=== PATIENT | female | born 1940 | race Caucasian/White ===

== ENCOUNTER → 2019-11-16 16:08 | Outpatient (BNVA) | payer MEDICARE, BC, OTHER, SELFPAY | PROVIDERS: Family Provider Family Medicine; PCP Family Medicine; Visit Provider Registered Nurse | DX: E11.9 Type 2 diabetes mellitus without complications (principal); I10 Essential (primary) hypertension | CPT/HCPCS: 85025 ==

== ENCOUNTER 2020-06-24 14:14 | Outpatient (CLI) | payer MEDICARE, BC, OTHER, SELFPAY ==
--- NOTE | 2020-06-24 14:34 | XR_ITS ---
WS: [id number] Lumbar spine, 3 views, 06/24/2020 Clinical Data: LOW BACK PAIN Comparison: None. Findings: There is a prominent dextroscoliosis of the lumbar vertebral bodies. There is degenerative change inv olving the lumbar vertebral bodies. There is disc space narrowing at all levels from T12-L1 through L 5-S1. The SI joints and transverse processes are normal. No compression fractures are seen. There is a larg e amount of fecal material throughout the colon. XR/XR lumbar spine 2-3V* [id number] Impression: 1. Severe dextroscoliosis. 2. Osteoarthritis and degenerative disc disease at all lumbar levels.
== END 2020-06-24 14:15 | disposition home or self-care (01) ==
PROVIDERS: PCP Family Medicine; Visit Provider Family Medicine
DX: M41.86 Other forms of scoliosis, lumbar region (principal); M47.816 Spondylosis without myelopathy or radiculopathy, lumbar region; M51.36 Other intervertebral disc degeneration, lumbar region
CPT/HCPCS: 72100

== ENCOUNTER 2021-09-12 12:49 | Outpatient (CLI) | payer MEDICARE, BC, OTHER, SELFPAY ==
--- NOTE | 2021-09-12 13:30 | USCV_ITS ---
Ivelisse Gardner Age: 81 Gender: F : 1940 Exam Date: 09/12/2021 13:04 Ordering Phys: Maggie Chavira MD ([email or web address]) Technologist: LINNEA Exam Location: [facility] [place] Indication: ATHEROSCLEROTIC HEART DISEASE OF [place] CORONARY ARTERIES BP: 110 / 64 HR: 93 Rhythm: Sinus Technical Quality: Suboptimal MEASUREMENTS (Male / Female) Normal Values 2D ECHO LV Diastolic Diameter PLAX 2.5 cm 4.2 - 5.9 / 3.9 - 5.3 cm LV Systolic Diameter PLAX 1.4 cm IVS Diastolic Thickness 0.8 cm 0.6 - 1.0 / 0.6 - 0.9 cm IVS Systolic Thickness 1.3 cm LVPW Diastolic Thickness 0.9 cm 0.6 - 1.0 / 0.6 - 0.9 cm LVPW Systolic Thickness 1.6 cm RV Chamber Size 1.5 cm LVOT Diameter 2.0 cm LV Ejection Fraction 2D Teich 79.3 % LV Ejection Fraction MOD 2C 75.1 % LV Ejection Fraction 2C AL 75.2 % LA Diameter 3.0 cm LA Width 2.6 cm LA Height 3.8 cm RA Width 2.0 cm RA Height 3.6 cm Aorta at Sinotubular Diameter 1.8 cm M-MODE Aortic Annulus Diameter 2.0 cm LA Ao Ratio MM 1.7 DOPPLER AV Peak Velocity 121.0 cm/s LVOT Peak Velocity 114.0 cm/s AV Area Cont Eq vti 2.4 cm squared AV Area Cont Eq pk 3.0 cm squared TR Peak Velocity 173.0 cm/s TR Peak Gradient 12.0 mmHg TV Peak E Velocity 43.0 cm/s Right Atrial Pressure 3.0 mmHg Pulmonary Artery Systolic Pressu 15.0 mmHg PV Peak Velocity 105.0 cm/s RV Acceleration Time 0.1 s RV Ejection Time 0.3 s RV AcT/ET 0.4 FINDINGS Left Ventricle Normal left ventricular size and systolic function with no diagnostic regional wall motion abnormalities. Left ventricular ejection fraction is estimated at 70-75%. Right Ventricle Normal right ventricular size and systolic function. RVSP could not be calculated due to incomplete tricuspid regurgitation velocity profile. Right Atrium Normal right atrial size. Right atrial pressure estimated at 3 mm Hg. Left Atrium Mildly increased left atrial size. Mitral Valve Moderate mitral annular calcification. Mildly thickened mitral valve. No mitral valve stenosis. No mitral valve regurgitation. Aortic Valve Aortic valve not well visualized. No aortic valve stenosis. No aortic valve regurgitation. Tricuspid Valve Structurally normal tricuspid valve. Pulmonic Valve Pulmonic valve not well visualized. Pericardium No pericardial effusion. Aorta Normal-sized aortic root. Normal-sized inferior vena cava with normal respiratory variation. CONCLUSIONS 1. This is a technically difficult study. 2. Normal left ventricular size and systolic function with no diagnostic regional wall motion abnormalities. Left ventricular ejection fraction is estimated at 70-75%. 3. No prior similar studies to compare. Maggie Chavira MD (Electronically Signed) Final Date: 14 September 2021 17:30 S
== END 2021-09-12 12:50 | disposition home or self-care (01) ==
PROVIDERS: PCP Family Medicine; Visit Provider Internal Medicine Cardiovascular Disease
DX: I10 Essential (primary) hypertension (principal); I25.10 Atherosclerotic heart disease of native coronary artery without angina pectoris
CPT/HCPCS: 93306

== ENCOUNTER 2021-09-27 14:16 | Outpatient (CLI) | payer MEDICARE, BC, OTHER, SELFPAY ==
[2021-09-27 15:54] LABS: Anion Gap 18.9 (5-19); Blood Urea Nitrogen 16 mg/dL (8-23); Calcium 9.4 mg/dL (8.5-10.5); Carbon Dioxide 25 mmol/L (22-29); Chloride 101 mmol/L (98-107); Glucose 309 mg/dL (65-115); Osmolality Calculated 305 mOsm/kg (285-295); Potassium 3.9 mmol/L (3.5-5.1); Sodium 141 mmol/L (136-145)
== END 2021-09-27 14:17 | disposition home or self-care (01) ==
LOC: LAB 14:22
PROVIDERS: PCP Family Medicine; Visit Provider Internal Medicine Cardiovascular Disease
DX: I10 Essential (primary) hypertension (principal); I25.10 Atherosclerotic heart disease of native coronary artery without angina pectoris
CPT/HCPCS: 36415; 80048

== ENCOUNTER 2021-10-08 12:16 | Inpatient (IN) | payer MEDICARE, BC, OTHER, SELFPAY ==
[2021-10-08] VITALS (9 sets, daily range): BP systolic 136–170; BP diastolic 71–97; PULSE 77–102; RESP 16–18; TEMP 36.1–37.1; O2SAT 93–97; BMI 30.2
--- NOTE | 2021-10-08 12:39 | XRR_ITS ---
PROCEDURE INFORMATION: Exam: XR Chest Exam date and time: 10/08/2021 12:55 PM Age: 81 years old Clinical indication: Other: Acute stroke; Additional info: CVA TECHNIQUE: Imaging protocol: XR of the chest. Views: 1 view. COMPARISON: No relevant prior studies available. FINDINGS: Lungs: See Bones/joints finding. Pleural spaces: Unremarkable. No pleural effusion. No pneumothorax. Heart/Mediastinum: Unremarkable. No cardiomegaly. Bones/joints: There is a faint 1 cm nodule projecting on the periphery of the left 5th rib. A CT scan of the chest is advised for further evaluation. The remaining lung zones are clear. XR/XR chest 1V portable [id number] IMPRESSION: There is a faint 1 cm nodule projecting on the left upper lobe. CT scan of the chest is advised for further evaluation.
--- NOTE | 2021-10-08 12:39 | CTR_ITS ---
PROCEDURE INFORMATION: Exam: CT Head Without Contrast Exam date and time: 10/08/2021 1:02 PM Age: 81 years old Clinical indication: Weakness, extremity; Bilateral; Patient HX: Several falls; Additional info: Symptoms of acute stroke TECHNIQUE: Imaging protocol: Computed tomography of the head without contrast. Radiation optimization: All CT scans at this facility use at least one of these dose optimization techniques: automated exposure control; mA and/or kV adjustment per patient size (includes targeted exams where dose is matched to clinical indication); or iterative reconstruction. COMPARISON: No relevant prior studies available. RADIATION DOSE METRICS: Total DLP (mGy-cm): 687.41 FINDINGS: Brain: No intracranial hemorrhage, edema or other acute abnormalities are seen in the brain. There is generalized chronic atrophy with prominence of the ventricles and sulci. Cerebral ventricles: The ventricles are prominent due to chronic atrophy. Paranasal sinuses: There is mild mucosal thickening in the sphenoid sinus. Mastoid air cells: Visualized mastoid air cells are well aerated. Bones/joints: Unremarkable. No acute fracture. Soft tissues: Unremarkable. CT/CT head wo con* [id number] IMPRESSION: 1. No acute intracranial abnormality. 2. Generalized chronic atrophy.
--- NOTE | 2021-10-08 12:39 | ECG_ITS ---
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 Measurements Intervals [place] Rate: 93 P: 78 [place]: 222 QRS: 32 QRSD: 84 T: 91 QT: 340 QTc: 424 Interpretive Statements SINUS RHYTHM WITH MARKED SINUS ARRHYTHMIA WITH FIRST DEGREE AV BLOCK ANTERIOR MYOCARDIAL INFARCTION , OF INDETERMINATE AGE [40+ ms Q WAVE AND/OR ST/T ABNORMALITY IN V3/V4] Compared to ECG 05/24/2016 13:02:14 First degree AV block now present Myocardial infarct finding still present Electronically Signed On 10-08-2021 16:52:05 CDT by Jeancarlos Carbajal M.D. [email or web address]
--- NOTE | 2021-10-08 12:51 | W.ED.WEAKNES ---
HPI - Weakness General: Chief complaint: Weakness Stated complaint: stroke like symptoms Time Seen by Provider: 10/08/21 12:35 Source: patient Mode of arrival: ambulatory Limitations: no limitations History of Present Illness: 81-year-old female who states that she went to bed late last night around 1 or 2 AM been on exertion or the exact time states that she woke up this morning she is having some slight weakness in her left leg slurred speech along with left-sided facial droop. She states that her weakness is improved and so has her speech but she does continue to have some facial droop here. Her last known normal would have been around 1 or 2 AM she denies headache no history of stroke in the past. Associated symptoms: Denies chest pain, chills, dysuria, easy bruising, fever(s), nausea or vomiting Review of Systems Const: Denies: fever(s), chills, body aches or change in appetite Eyes: Denies: blurry vision or eye discomfort ENMT: Denies: throat pain or dental pain Card: Denies: chest pain Resp: Denies: dyspnea GI: Denies: abdominal pain, nausea, vomiting or diarrhea : Denies: dysuria Musc: Denies: neck pain or back pain Skin/Breast: Denies: rash Neuro: Reports: Slurred speech present Psych: Denies: depression Mikhail/Lymph: Denies: easy bruising All/Imm: Denies: urticaria PFSH ED PFSH: Medical History (Updated 10/08/21 @ 14:36 by Darrel Jacinto MD) ASHD (arteriosclerotic heart disease) Chest pain Diabetes Dyslipidemia Essential hypertension Hypothyroidism Surgical History S/P angioplasty with stent S/P cataract extraction S/P cholecystectomy S/P hysterectomy Family History Father Diabetes CAD (coronary artery disease) Mother Cancer COLON Other Hyperlipidemia Hypertension Social History Smoking and tobacco status: never smoked Alcohol intake: never Household members: spouse Marital status: Current occupational status: retired Physical Exam Const: COMMON NORMALS: no acute distress, patient oriented x3 and healthy appearing HENMT: COMMON NORMALS: normocephalic and atraumatic HEAD & SCALP: normocephalic and atraumatic Eye: COMMON NORMALS: Equal, round and reactive pupils present and EOMs intact bilaterally PUPIL: Yes Equal, round and reactive pupils present Neck/C-Spine: COMMON NORMALS: full ROM and supple Chest: COMMONS NORMALS: normal inspection of the chest and normal palpation of entire chest wall Resp: COMMON NORMALS: normal respiratory effort, No retractions, No use of accessory muscles and clear to auscultation bilaterally AUSCULTATION: clear to auscultation bilaterally Cardio: COMMON NORMALS: regular rate, regular rhythm and No murmurs present (Cardio) RATE: regular rate RHYTHM: regular rhythm GI: COMMON NORMALS: Normal to inspection, nondistended, normoactive bowel sounds present, Soft to palpation, non-tender and no masses PALPATION: Yes Soft to palpation Extremity: COMMON NORMALS: normal to inspection and full ROM Neuro: COMMON NORMALS: patient oriented x3 and moves all extremities SPEECH: speech normal GAIT: Yes Normal gait present MOTOR EXAM: 5/5 motor strength present throughout OTHER: Left-sided facial droop Psych: COMMON NORMALS: mental status grossly normal, Normal thought process present and cooperative THOUGHT PROCESS: Normal thought process present Skin: COMMON NORMALS: no rashes or lesions noted and no wounds GENERAL SKIN EXAM: no rashes or lesions noted Course Vital Signs: Vital signs: Vital Signs Temperature 98.7 F 10/08/21 12:33 Pulse Rate 81 10/08/21 14:00 Respiratory Rate 18 10/08/21 14:00 Blood Pressure 153/87 10/08/21 14:00 Pulse Oximetry 96 10/08/21 14:00 MDM - Weakness Medical Decision Making Patient presents here with facial droop symptoms of possible stroke symptoms have been improving also last known normal was around 1 AM she was she is out of the timeframe for any tPA. CT head here is normal I spoke to hospitalist and will admit for observation. Lab Data : 10/08/21 12:45 10/08/21 12:45 Radiology Impressions Chest X-Ray 10/08/21 12:39 IMPRESSION: There is a faint 1 cm nodule projecting on the left upper lobe. CT scan of the chest is advised for further evaluation. ADDENDUM: 10/08/21 1400 THIS REPORT CONTAINS FINDINGS THAT MAY BE CRITICAL TO PATIENT CARE. The findings were verbally communicated via telephone conference with DARREL JACINTO at 1:58 PM CDT on 10/08/2021. The findings were acknowledged and understood. Head CT 10/08/21 12:39 IMPRESSION: 1. No acute intracranial abnormality. 2. Generalized chronic atrophy. Laboratory Results WBC 9.6 10^3/uL (4.0-10.0) 10/08/21 12:45 RBC 4.29 10^6/uL (4.1-5.3) 10/08/21 12:45 Hgb 12.7 g/dL (11.5-15.3) 10/08/21 12:45 Hct 38.9 % (37.0-47.0) 10/08/21 12:45 MCV 90.7 fl (81-99) 10/08/21 12:45 MCH 29.6 pg (28.0-34.0) 10/08/21 12:45 MCHC 32.6 g/dL (30.0-36.0) 10/08/21 12:45 RDW 13.8 % (12.1-15.1) 10/08/21 12:45 Plt Count 205 10^3/cmm (130-400) 10/08/21 12:45 MPV 9.4 fL (7.4-10.4) 10/08/21 12:45 Neut % (Auto) 60.9 % 10/08/21 12:45 Lymph % (Auto) 26.9 % 10/08/21 12:45 Edmonson % (Auto) 6.6 % 10/08/21 12:45 Eos % (Auto) 5.0 % 10/08/21 12:45 Baso % (Auto) 0.2 % 10/08/21 12:45 Neut # (Auto) 5.81 10^3/uL (1.8-7.7) 10/08/21 12:45 Lymph # (Auto) 2.6 10^3/uL (0.8-4.8) 10/08/21 12:45 Edmonson # (Auto) 0.6 10^3/uL (0.2-0.9) 10/08/21 12:45 Eos # (Auto) 0.5 10^3/uL (0.0-0.8) 10/08/21 12:45 Baso # (Auto) 0.0 10^3/uL (0.0-0.1) 10/08/21 12:45 Nucleated RBC % (auto) 0 % 10/08/21 12:45 Nucleated RBCs # 0.0 /100WBC 10/08/21 12:45 PT 12.90 SECONDS (12.1-14.9) 10/08/21 12:45 INR 0.94 (0.8-1.2) 10/08/21 12:45 APTT 25.7 SECONDS (23.9-36.7) 10/08/21 12:45 Sodium 139 mmol/L (136-145) 10/08/21 12:45 Potassium 3.8 mmol/L (3.5-5.1) 10/08/21 12:45 Chloride 101 mmol/L (98-107) 10/08/21 12:45 Carbon Dioxide 26 mmol/L (22-29) 10/08/21 12:45 Anion Gap 15.8 (5-19) 10/08/21 12:45 BUN 17 mg/dL (8-23) 10/08/21 12:45 Creatinine 1.1 mg/dL (0.5-0.9) H 10/08/21 12:45 GFR Calculation Not Reportable 10/08/21 12:45 Glucose 189 mg/dL (65-115) H 10/08/21 12:45 POC Glucose 165 mg/dL (70-110) H 10/08/21 13:22 Calculated Osmolality 295 mOsm/kg (285-295) 10/08/21 12:45 Calcium 9.9 mg/dL (8.5-10.5) 10/08/21 12:45 Total Bilirubin 0.3 mg/dL (0.15-1.2) 10/08/21 12:45 AST 20 U/L (0-32) 10/08/21 12:45 ALT 18 U/L (0-33) 10/08/21 12:45 Alkaline Phosphatase 65 IU/L (35-105) 10/08/21 12:45 Total Protein 7.1 g/dL (6.6-8.7) 10/08/21 12:45 Albumin 4.2 g/dL (3.5-5.2) 10/08/21 12:45 Globulin 2.9 g/dL (1.3-4.6) 10/08/21 12:45 EKG Data EKG 1: I personally reviewed and interpreted this EKG as follows: EKG interpretation date: 10/08/21 EKG interpretation time: 12:50 Interpretation: nsr hr [address] or t wave abnormalities qrs 84 qtc 391 Discharge Plan Discharge Patient Disposition: Admitted As Inpatient Admit Provider: Kavita Odom Clinical Impression: Acute CVA (cerebrovascular accident) Condition: Stable 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 Care Code ED Radiator Repairer for Chg Fwd Exam Comprehensive NIH stroke score NIHSS Level Of Consciousness - 1a: 0 Level Of Consciousness Questions - 1b: Both Correct Level Of Consciousness Commands - 1c: Both Correct Best Gaze - 2: Normal Visual Aldrich - 3: No Visual Loss Facial Palsy - 4: Partial Paralysis Motor Arm Right - 5: No Drift Motor Arm Left - 5: No Drift Motor Leg Right - 6: No Drift Motor Leg Left - 6: No Drift Limb Ataxia - 7: Absent Sensory - 8: Normal Best Language - 9: No Aphasia Dysarthia - 10: Normal Extinction And Inattention - 11: 0 Score Total Score: 2
--- NOTE | 2021-10-08 13:03 | PC.NURSE ---
Off unit for CT
[2021-10-08 13:07] LABS: Basophils % 0.2 %; Eosinophils # 0.5 10^3/uL (0.0-0.8); Hematocrit 38.9 % (37.0-47.0); Hemoglobin 12.7 g/dL (11.5-15.3); Lymphocytes # 2.6 10^3/uL (0.8-4.8); Lymphocytes % 26.9 %; Mean Corpuscular HGB Conc 32.6 g/dL (30.0-36.0); Mean Corpuscular Hemoglobin 29.6 pg (28.0-34.0); Mean Corpuscular Volume 90.7 fl (81-99); Mean Platelet Volume 9.4 fL (7.4-10.4); Monocytes # 0.6 10^3/uL (0.2-0.9); Monocytes % 6.6 %; Neutrophils # 5.81 10^3/uL (1.8-7.7); Neutrophils % 60.9 %; Nucleated Red Blood Cells % 0 %; Platelet Count 205 10^3/cmm (130-400); Red Blood Count 4.29 10^6/uL (4.1-5.3); Red Cell Distribution Width 13.8 % (12.1-15.1); White Blood Count 9.6 10^3/uL (4.0-10.0)
[2021-10-08 13:20] LABS: INR 0.94 (0.8-1.2); Partial Thromboplastin Time 25.7 SECONDS (23.9-36.7)
[2021-10-08 13:25] LABS: Alanine Aminotransferase 18 U/L (0-33); Albumin Level 4.2 g/dL (3.5-5.2); Alkaline Phosphatase 65 IU/L (35-105); Anion Gap 15.8 (5-19); Aspartate Amino Transferase 20 U/L (0-32); Blood Urea Nitrogen 17 mg/dL (8-23); Calcium 9.9 mg/dL (8.5-10.5); Carbon Dioxide 26 mmol/L (22-29); Chloride 101 mmol/L (98-107); Globulin 2.9 g/dL (1.3-4.6); Glucose 189 mg/dL (65-115); Osmolality Calculated 295 mOsm/kg (285-295); Potassium 3.8 mmol/L (3.5-5.1); Sodium 139 mmol/L (136-145); Total Bilirubin 0.3 mg/dL (0.15-1.2); Total Protein 7.1 g/dL (6.6-8.7)
[2021-10-08 13:25] LABS: Glucose Point of Care 165 mg/dL (70-110)
[2021-10-08 13:57] LABS: Amphetamines Screen Urine Negative (Negative); Barbiturates Screen Urine Negative (Negative); Benzodiazepines Screen Urine Negative (Negative); Cocaine Screen Urine Negative (Negative); Opiate Screen Urine Negative (Negative); PCP Screen Urine Negative (Negative); THC Screen Urine Negative (Negative)
[2021-10-08 13:58] LABS: Add Urine Culture? No; Add Urine Microscopic? YES; Bacteria Urine TRACE /hpf; Bilirubin Urine Neg (Negative); Blood Urine Neg (Negative); Glucose Urine UA Norm (Normal); Ketones Urine Negative (Negative); Leukocyte Esterase Urine Negative (Negative); Mucus Urine TRACE /hpf; Nitrate Urine Negative (Negative); Protein Urine Trace (Negative); Specific Gravity, Urine 1.015 (1.005-1.030); Squamous Epithelial Cell Urine RARE /hpf (0-5); Urine Appearance Clear (CLEAR); Urine Color Yellow (Yellow); Urobilinogen Urine Norm (Negative); WBC Urine 0-4 /hpf (0-5); pH Urine 6 (5-7)
--- NOTE | 2021-10-08 13:58 | CTR_ITS ---
PROCEDURE INFORMATION: Exam: CT Chest With Contrast; Diagnostic Exam date and time: 10/08/2021 3:17 PM Age: 81 years old Clinical indication: Other: Mass; Prior surgery; Surgery type: Gb, hysto, stents TECHNIQUE: Imaging protocol: Diagnostic computed tomography of the chest with contrast. Radiation optimization: All CT scans at this facility use at least one of these dose optimization techniques: automated exposure control; mA and/or kV adjustment per patient size (includes targeted exams where dose is matched to clinical indication); or iterative reconstruction. Contrast material: VISI 320; Contrast volume: 95 ml; Contrast route: INTRAVENOUS (IV); COMPARISON: CR (CHEST, ) 10/08/2021 12:55 PM RADIATION DOSE METRICS: Total DLP (mGy-cm): 517.37 FINDINGS: Lungs: Mild interstitial prominence and trace lingular airspace disease. Pleural spaces: No pleural effusion. Heart: Coronary artery calcification. Lymph nodes: Subcentimeter lymph nodes. Vasculature: Normal caliber of the thoracic aorta. Upper abdomen: Fatty infiltration of the liver. Status post cholecystectomy. Gastric wall thickening. Bones/joints: Scoliosis and degenerative change. Soft tissues: Unremarkable. CT/CT chest w con* [id number] IMPRESSION: 1. No significant airspace or pleural disease. 2. Gastric wall thickening. 3. Additional findings as described above.
[2021-10-08] MEDS: aspirin 81 mg Chew Tablet 324 MG PO (14:19)
--- NOTE | 2021-10-08 14:19 | USCV_ITS ---
Ivelisse Gardner Age: 81 Gender: F : 1940 Exam Date: 10/08/2021 14:40 Ordering Phys: Kavita Odom MD Technologist: Alin Farley Exam Location: [facility] [place] Indication: cva BP: / HR: Rhythm: Sinus Technical Quality: MEASUREMENTS (Male / Female) Normal Values FINDINGS Left Ventricle Right Ventricle Right Atrium Left Atrium Mitral Valve Aortic Valve Tricuspid Valve Pulmonic Valve Pericardium Aorta CONCLUSIONS This is a bubble study only. With injection of agitated saline, there is no evidence of communication between the right and left circulation. No evidence of patent foramen ovale, ASD or VSD. Dr. Jeancarlos Carbajal MD (Electronically Signed) Final Date: 08 Oct 2021 16:43 S
--- NOTE | 2021-10-08 14:19 | MRR_ITS ---
PROCEDURE INFORMATION: Exam: MR Head Without Contrast Exam date and time: 10/08/2021 6:27 PM Age: 81 years old Clinical indication: Weakness, extremity; Patient HX: Patient woke up with left side weakness; Additional info: Rule out stroke, without contrast TECHNIQUE: Imaging protocol: MR of the head without contrast. COMPARISON: CT head wo con* [id number] 10/08/2021 1:02 PM FINDINGS: Brain: There is restricted diffusion at the posterolateral aspect of the right lentiform nucleus, adjacent posterior limb of the internal capsule, and caudate body, consistent with acute ischemic infarction. Small region of infarct measuring 1.5 x 1.0 by 1.8 cm in the AP/transverse/craniocaudad dimensions. No significant adjacent mass effect. No midline shift. There are multiple foci of high T2 and FLAIR signal in the periventricular and subcortical white matter of the bilateral cerebral hemispheres, which at this age likely represent microvascular ischemic changes. There is diffuse cerebral atrophy present, consistent with this patient's age. Cerebral ventricles: Normal. No ventriculomegaly. Pituitary gland and sella: Normal variant partially empty sella. Bones/joints: Unremarkable. Paranasal sinuses: Normal as visualized. No acute sinusitis. Mastoid air cells: Normal as visualized. No mastoid effusion. Orbital cavities: Unremarkable. Soft tissues: Unremarkable. MR/MR head wo con* [id number] IMPRESSION: There is a small region of acute ischemic infarction involving the right lentiform nucleus, caudate, and posterior limb of the internal capsule. No significant mass effect.
--- NOTE | 2021-10-08 14:19 | USR_ITS ---
Arterial ultrasound of the extracerebral carotid and vertebral arteries Clinical indication: Weakness, facial; Additional info: Possible stroke Technique: Real-time ultrasound with segal scale, duplex Doppler, and color flow imaging was performed to evaluate the extracerebral carotid and vertebral arteries. No prior vascular imaging studies are available for correlation at the time of dictation. Findings: Moderate plaque formation is identified within the visualized carotid arteries . There is normal antegrade flow within the vertebral arteries bilaterally. The peak systolic velocity measurements within the right and left internal carotid arteries are 51 and 49 cm per second respectively. The right systolic velocity ratio is 0.74, while the left systolic velocity ratio is 0.78. These values are well within normal limits. When correlating with NASCET index criteria, no hemodynamically significant stenosis is present. US/CV carotid duplex BI* [id number] Impression: 1. Moderate plaque formation within the carotid arteries, without hemodynamically significant ICA stensosis. 2. Normal antegradew flow within the vertebral arteries.
--- NOTE | 2021-10-08 14:27 | P.HP_ITS ---
Providers/Chief Complaint Primary Care Provider: Natalie Manzano MD Chief Complaint: stroke like symptoms History of Present Illness Ivelisse Gardner is a 81 year old female with past medical history of CAD status post stents 2010, diabetes insulin-dependent, dyslipidemia, hypertension, hypothyroidism who presented to the hospital today with complaint of left lower extremity weakness with slurred speech along with left-sided facial droop. Patient's is at bedside who provided most of the history. Patient was asked she was able to report some stuff but rest she does not seem to remember. She answered please asked my to numerous questions. Patient is experiencing some word finding difficulty. She does have headaches from time to time but has not experienced any lately. Last known normal is probably 1 AM. S he denies any headache denies any strokes in the past. Denies chest pain, fever, chills, bruising, nausea, vomiting, diarrhea. Patient follows with Dr. Chavira as per tape librarian. Review of systems negative septa noted in HPI. Patient is out of the window for tPA ED course: Blood pressure 145/80, respiratory 16, pulse 102, temperature 98.7, pulse ox 93%. EKG did not show any ischemic changes. Head CT was done which did not show an acute stroke. Most recent echo September 14, 2021 shows normal left ventricular size and systolic function with no wall motion abnormalities. EF 70 to 75%. Medications/Allergies Home Medications Medication Instructions Recorded Confirmed Last Taken Type aspirin 81 mg tablet,delayed 81 mg PO DAILY 06/29/19 10/08/21 10/08/21 History release (Adult Low Dose Aspirin) multivitamin 1 tab PO BID tab 06/29/19 10/08/21 10/08/21 History simvastatin 40 mg tablet 40 mg PO DAILY 06/29/19 10/08/21 10/07/21 History blood sugar diagnostic (Contour See Rx Instructions .ROUTE 05/12/20 10/08/21 Unknown Rx Next Test Strips) .COMPLEX #100 strip gabapentin 100 mg capsule 100 mg PO BID cap 01/05/21 10/08/21 10/08/21 History nitroglycerin 0.4 mg sublingual 0.4 mg SUBLINGUAL Q5M PRN #25 tab 06/26/21 10/08/21 Unknown Rx tablet (Nitrostat) vitamins A,C,P-vnax-pbnlsb 7,160 1 tab PO BID tab 06/26/21 10/08/21 10/08/21 History unit-113 mg-100 unit tablet (PreserVision AREDS) pen needle, diabetic 32 gauge x #100 ea 08/07/21 10/08/21 Unknown Rx (TechLITE Pen Needle) metoprolol tartrate 25 mg tablet See Rx Instructions .ROUTE 08/11/21 10/08/21 10/08/21 Rx .COMPLEX #180 tab budesonide 32 mcg/actuation nasal 1 spray INTRANASAL DAILY #8.43 ml 08/28/21 10/08/21 Unknown Rx spray (Rhinocort Allergy) insulin detemir U-100 100 unit/mL See Rx Instructions .ROUTE 09/08/21 10/08/21 10/07/21 Rx (3 mL) subcutaneous pen (Levemir .COMPLEX #90 ml FlexTouch U-100 Insulin) lisinopril 10 mg tablet 20 mg PO BID tab 09/20/21 10/08/21 10/08/21 History isosorbide mononitrate 60 mg 60 mg PO BID #180 tab 09/25/21 10/08/21 10/08/21 Rx tablet,extended release 24 hr allopurinol 100 mg tablet 200 mg PO DAILY 10/08/21 10/08/21 10/08/21 History duloxetine 60 mg capsule,delayed 60 mg PO DAILY 10/08/21 10/08/21 10/08/21 History release levothyroxine 75 mcg tablet 75 mcg PO DAILY 10/08/21 10/08/21 10/08/21 History metformin 500 mg tablet,extended 500 mg PO BID 10/08/21 10/08/21 10/08/21 History release 24 hr omeprazole 40 mg capsule,delayed 40 mg PO DAILY 10/08/21 10/08/21 10/08/21 History release sitagliptin 100 mg tablet (Januvia) 100 mg PO DAILY 10/08/21 10/08/21 10/08/21 History triamterene 37.5 1 tab PO DAILY 10/08/21 10/08/21 10/08/21 History mg-hydrochlorothiazide 25 mg tablet Allergies Allergy/AdvReac Type Severity Reaction Status Date / Time azithromycin [From Zithromax] Allergy Mild rash Verified 08/28/21 11:04 Quinidine-Quinine Analogues Allergy Mild rash Verified 08/28/21 11:04 ([facility]: Medical History (Updated 10/08/21 @ 14:36 by aDvid Galarza MD) ASHD (arteriosclerotic heart disease) Chest pain Diabetes Dyslipidemia Essential hypertension Hypothyroidism Surgical History S/P angioplasty with stent S/P cataract extraction S/P cholecystectomy S/P hysterectomy Family History Father Diabetes CAD (coronary artery disease) Mother Cancer COLON Other Hyperlipidemia Hypertension Social History Smoking and tobacco status: never smoked Alcohol intake: never Household members: spouse Marital status: Current occupational status: retired Vitals/I&O/Wt Last Vital Signs Temp 98.7 F 10/08/21 12:33 Pulse 81 10/08/21 14:00 Resp 18 10/08/21 14:00 BP 153/87 10/08/21 14:00 Pulse Ox 96 10/08/21 14:00 Weight last 48 hrs Weight 68.039 kg Physical Exam Narrative: General: Alert oriented x3, patient seen sitting up in bed. HEENT: Normocephalic, atraumatic, EOMI, breathing _normally, left facial droop noted. Slight slurred speech still present. Cardio: Regular rate rhythm, normal S1-S2, no murmurs Respiratory: Good bilateral air entry, no wheezes no rhonchi appreciated GI: Abdomen soft, nontender, nondistended, bowel sounds + Behavior: Appropriate and cooperative Extremities: no edema, no cyanosis Neuro: Cranial nerves II to XII intact, left facial droop present, left upper extremity strength 4 out of 5, right upper extremity strength 5 out of 5, left lower extremity 3 out of 5, right lower extremity 5 out of 5. [id number] normal no dysdiadochokinesia, right superior quadrantanopsia present on peripheral vision testing. She is able to tell me president is Marco, year 2021, her date of or name. However she is unable to clearly state that she is in the hospital. I spoke to her for several minutes and noticed that she was having word finding difficulty. She could tell me what you do here but could not say that this was a hospital. Able to repeat 3 words that to her. Cognitive reasoning intact. Data : 10/08/21 12:45 10/08/21 12:45 A&P Assessment and plan (1) Acute CVA (cerebrovascular accident): Status: Acute (2) ASHD (arteriosclerotic heart disease): Status: Acute (3) Diabetes: Status: Acute Qualifiers: Diabetes mellitus type: type 2 Diabetes mellitus lobsterman insulin use: with lobsterman use Diabetes mellitus complication status: with hyperglycemia Qualified Code(s): E11.65 - Type 2 diabetes mellitus with hyperglycemia; Z79.4 - ocean transportation intermediary (current) use of insulin (4) Dyslipidemia: Status: Acute (5) S/P angioplasty with stent: Status: Acute (6) Essential hypertension: Status: Acute Plan #Left-sided weakness with left facial droop and slurred speech 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 Continue on insulin sliding scale. Hold home antihyperglycemic's ? Continue levothyroxine ? Patient received 325 aspirin on arrival. ? Continue aspirin 81 and Effient in a.m. Patient is allergic to Plavix. ? Continue on Levemir 50 units at bedtime. Her home dose is 100 units bedtime. ? Keep n.p.o. until swallow evaluation. ? Allow for permissive hypertension for first 24 hours Hold home antihypertensives. Last known normal 1 AM. Tonight we may be able to start some of her antihypertensives. We will let night hospitalist know ? Check MRI brain ? Check carotid Dopplers ? Check echo with bubble to rule out PFO she did have a recent echo. We will do a limited one just to look for PFO. ? Monitor on telemetry ? PT OT. Patient's was present at bedside provided most of the history. He takes care of her at home and manages her medications as well. They brought a list of medications along with the physical bottles. At first patient said that she did not want to be resuscitated and wanted to be a DNR/DNI but then after discussion with her they both agreed that she should remain a full code. In case patient cannot make her own medical decisions her would be the person to contact. Both are in agreement. Full code Attestations Medical Necessity Statement*: Admit for stroke work-up. 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 Care Code Acute Air Brake Rigger for g Fwd Diagnoses Acute CVA (cerebrovascular accident) I63.9 ASHD (arteriosclerotic heart disease) I25.10 Diabetes E11.65; Z79.4 Diabetes mellitus type: type 2 Diabetes mellitus lobsterman insulin use: with fdc use Diabetes mellitus complication status: with hyperglycemia Dyslipidemia E78.5 S/P angioplasty with stent Z95.820 Essential hypertension I10
[2021-10-08] MEDS: iodixanol 320 mg/mL 100mL Btl IV (15:17)
[2021-10-08] MEDS: enoxaparin 40 mg/0.4 mL Syringe SUBCUT (15:29)
--- NOTE | 2021-10-08 15:57 | PC.RESP ---
PT NOT IN ROOM FOR ASSESS AND TREAT
[2021-10-08 16:14] LABS: Chol HDL Ratio 2.74 mg/dL (0.0-4.40); Cholesterol 137 mg/dL (0-200); Estmated Average Glucose 180; HDL Cholesterol 50 mg/dL (60-100); Hemoglobin A1C 7.9 % (4.0-6.0); LDL Cholesterol Calculated 60 mg/dL (50-129); Thyroid Stimulating Hormone 1.15 uIU/mL (0.27-4.20); Triglycerides 134 mg/dL (0-150)
[2021-10-08] MEDS: gabapentin 100 mg Capsule PO (17:23)
[2021-10-08] MEDS: metoprolol tartrate 25 mg Tablet PO (17:24)
--- NOTE | 2021-10-08 17:52 | PC.NURSE ---
THIS NURSE CONTACTED [facility] MACHINE FEEDERPSYCHIATRIC NP FOR URGENT MRI ORDER. THIS ORDER WAS PLACED AROUND 1420. PATIENT WAS IN ER AT THAT TIME.
--- NOTE | 2021-10-08 17:54 | PC.NURSE ---
Patient AAOx4 with spouse at bedside and helpful answering questions. Patient has left side weakness with left side facial droop. VSS, no wounds on skin, no c/o pain, discharge rn calling for MRI food preservation scientist to come. No new events, encourage frequent turns, will report to oncoming nurse at shift change.
[2021-10-08] MEDS: insulin lispro 100 unit/1 mL SUBCUT (21:22)
[2021-10-08] MEDS: atorvastatin 40 mg Tablet 80 MG PO (21:22)
[2021-10-09] VITALS (8 sets, daily range): BP systolic 138–160; BP diastolic 67–76; PULSE 66–82; RESP 16–20; TEMP 35.6–37.3; O2SAT 92–95
--- NOTE | 2021-10-09 07:53 | PM.PN ---
Subjective Subjective: seen this am. no acute events overnight. working with PT Vitals/I&O/Wt Last Vital Signs Temp 96.1 F L 10/09/21 07:15 Pulse 67 10/09/21 07:15 Resp 20 H 10/09/21 04:00 BP 160/76 10/09/21 07:15 Pulse Ox 94 10/09/21 07:15 10/08/21 10/09/21 10/09/21 22:59 06:59 14:59 Intake Total 100 / 100 Output Total 500 / 500 Balance -400 / -400 Weight last 48 hrs Weight 68.039 kg Physical Exam Narrative: General: Alert oriented x3, patient seen sitting up at edge of bed. HEENT: Normocephalic, atraumatic, EOMI, breathing _normally, left facial droop & Slight slurred speech still present. Cardio: Regular rate rhythm, normal S1-S2, no murmurs Respiratory: Good bilateral air entry, no wheezes no rhonchi appreciated GI: Abdomen soft, nontender, nondistended, bowel sounds + Behavior: Appropriate and cooperative Extremities: no edema, no cyanosis Neuro: Cranial nerves II to XII intact, left facial droop present, left upper extremity strength 4 out of 5, right upper extremity strength 5 out of 5, left lower extremity 3 out of 5, right lower extremity 5 out of 5.? [id number] normal no dysdiadochokinesia, right superior quadrantanopsia present on peripheral vision testing.? word finding difficulty still present Data : 10/08/21 12:45 10/08/21 12:45 A&P Assessment and plan (1) Acute CVA (cerebrovascular accident): Status: Acute (2) ASHD (arteriosclerotic heart disease): Status: Acute (3) Dyslipidemia: Status: Acute (4) Diabetes: Status: Acute Qualifiers: Diabetes mellitus type: type 2 Diabetes mellitus custodial insulin use: with custodial use Diabetes mellitus complication status: with hyperglycemia Qualified Code(s): E11.65 - Type 2 diabetes mellitus with hyperglycemia; Z79.4 - local intermodal truck driver (current) use of insulin (5) S/P angioplasty with stent: Status: Acute (6) Essential hypertension: Status: Acute Plan #Left-sided weakness with left facial droop and slurred speech 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 Continue on insulin sliding scale.? Hold home antihyperglycemic's ? Continue levothyroxine ? Patient received 325 aspirin on arrival. ? Continue aspirin 81 and Effient Patient is allergic to Plavix. ? Continue on Levemir 75 units at bedtime.? Her home dose is 100 units bedtime. ? Swallow evaluation recommends dysphagia 2 diet ? MRI brain complete. ? Carotid Dopplers complete. ? PFO ruled out ? Monitor on telemetry ? PT OT. - Interested in SNF. Full code Attestations Medical Necessity Statement*: > 48 hr stay. Needs PT s/p stroke 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 Care Code Acute Manager Diesel for [facility] Fwd Diagnoses Acute CVA (cerebrovascular accident) I63.9 ASHD (arteriosclerotic heart disease) I25.10 Dyslipidemia E78.5 Diabetes E11.65; Z79.4 Diabetes mellitus type: type 2 Diabetes mellitus termite treater insulin use: with custodial use Diabetes mellitus complication status: with hyperglycemia S/P angioplasty with stent Z95.820 Essential hypertension I10
[2021-10-09 08:04] LABS: Glucose Point of Care 103 mg/dL (70-110)
[2021-10-09 08:04] LABS: Glucose Point of Care 202 mg/dL (70-110)
[2021-10-09 08:04] LABS: Glucose Point of Care 144 mg/dL (70-110)
[2021-10-09] MEDS: allopurinol 100 mg Tablet 200 MG PO (09:57)
[2021-10-09] MEDS: gabapentin 100 mg Capsule PO ×2 (09:57→18:05)
[2021-10-09] MEDS: aspirin 81 mg EC Tablet PO (09:57)
[2021-10-09] MEDS: prasugrel 10 MG Tablet PO (09:57)
[2021-10-09] MEDS: levothyroxine 75 mcg Tablet PO (09:57)
[2021-10-09] MEDS: duloxetine 60 mg Capsule PO (09:58)
[2021-10-09] MEDS: metoprolol tartrate 25 mg Tablet PO ×2 (10:01→18:05)
[2021-10-09 11:29] LABS: Glucose Point of Care 111 mg/dL (70-110)
[2021-10-09 11:37] LABS: Glucose Point of Care 237 mg/dL (70-110)
[2021-10-09] MEDS: insulin lispro 100 unit/1 mL SUBCUT ×3 (12:25→21:13)
[2021-10-09] MEDS: enoxaparin 40 mg/0.4 mL Syringe SUBCUT (16:45)
[2021-10-09 17:17] LABS: Glucose Point of Care 170 mg/dL (70-110)
[2021-10-09] MEDS: atorvastatin 40 mg Tablet 80 MG PO (21:10)
[2021-10-10] VITALS (8 sets, daily range): BP systolic 138–178; BP diastolic 72–79; PULSE 63–81; RESP 16–18; TEMP 36.3–36.8; O2SAT 93–96
[2021-10-10 05:40] LABS: Basophils % 0.2 %; Eosinophils # 0.4 10^3/uL (0.0-0.8); Eosinophils % 4.5 %; Hematocrit 41.3 % (37.0-47.0); Lymphocytes # 4.5 10^3/uL (0.8-4.8); Lymphocytes % 49.5 %; Mean Corpuscular HGB Conc 31.5 g/dL (30.0-36.0); Mean Corpuscular Volume 92.2 fl (81-99); Mean Platelet Volume 9.3 fL (7.4-10.4); Monocytes # 0.7 10^3/uL (0.2-0.9); Monocytes % 7.2 %; Neutrophils # 3.51 10^3/uL (1.8-7.7); Neutrophils % 38.4 %; Nucleated Red Blood Cells % 0 %; Platelet Count 223 10^3/cmm (130-400); Red Blood Count 4.48 10^6/uL (4.1-5.3); Red Cell Distribution Width 13.8 % (12.1-15.1); White Blood Count 9.2 10^3/uL (4.0-10.0)
[2021-10-10 06:01] LABS: Anion Gap 15.4 (5-19); Blood Urea Nitrogen 15 mg/dL (8-23); Calcium 8.8 mg/dL (8.5-10.5); Carbon Dioxide 26 mmol/L (22-29); Chloride 102 mmol/L (98-107); Glucose 75 mg/dL (65-115); Osmolality Calculated 290 mOsm/kg (285-295); Potassium 3.4 mmol/L (3.5-5.1); Sodium 140 mmol/L (136-145)
[2021-10-10 07:26] LABS: Glucose Point of Care 279 mg/dL (70-110)
[2021-10-10 07:26] LABS: Glucose Point of Care 94 mg/dL (70-110)
[2021-10-10] MEDS: metoprolol tartrate 25 mg Tablet PO ×2 (08:18→17:50)
[2021-10-10] MEDS: allopurinol 100 mg Tablet 200 MG PO (08:18)
[2021-10-10] MEDS: prasugrel 10 MG Tablet PO (08:18)
[2021-10-10] MEDS: levothyroxine 75 mcg Tablet PO (08:18)
[2021-10-10] MEDS: aspirin 81 mg EC Tablet PO (08:18)
[2021-10-10] MEDS: duloxetine 60 mg Capsule PO (08:18)
[2021-10-10] MEDS: gabapentin 100 mg Capsule PO ×2 (08:18→17:50)
--- NOTE | 2021-10-10 10:44 | P.PN_ITS ---
Subjective Subjective: Seen this morning. Seen this morning. Patient continues to work with physical therapy. She states she feels better however she still has weakness on the left side. present at bedside. Vitals/I&O/Wt Last Vital Signs Temp 98.2 F 10/10/21 08:00 Pulse 70 10/10/21 08:00 Resp 18 10/10/21 08:00 BP 156/79 10/10/21 08:00 Pulse Ox 96 10/10/21 08:00 10/09/21 10/10/21 10/10/21 22:59 06:59 14:59 Intake Total 160 / 400 50 / 450 240 / 240 Output Total 350 / 1000 Balance -190 / -600 50 / -550 240 / 240 Weight last 48 hrs Weight 68.039 kg Physical Exam Narrative: General: Alert oriented x3, patient seen sitting up in bed. HEENT: Normocephalic, atraumatic, EOMI, breathing _normally, Cardio: Regular rate rhythm, normal S1-S2, no murmurs Respiratory: Good bilateral air entry, no wheezes no rhonchi appreciated GI: Abdomen soft, nontender, nondistended, bowel sounds + Behavior: Appropriate and cooperative Extremities: no edema, no cyanosis Neuro: Cranial nerves II to XII intact, left facial droop slighty improved, left upper extremity strength 4 out of 5, right upper extremity strength 5 out of 5, left lower extremity 3 out of 5, right lower extremity 5 out of 5.? right superior quadrantanopsia present on peripheral vision testing.? word finding difficulty no longer present Data : 10/10/21 04:48 10/10/21 04:48 Other data: MRI brain 10/08/2021 There is a small region of acute ischemic infarction involving the right lentiform nucleus, caudate, and posterior limb of the internal capsule. No significant mass effect. Carotid doppler 1. Moderate plaque formation within the carotid arteries, without hemodynamically significant ICA stensosis. 2. Normal antegradew flow within the vertebral arteries. ECHO with bubble no PFO A&P Assessment and plan (1) Acute CVA (cerebrovascular accident): Status: Acute (2) ASHD (arteriosclerotic heart disease): Status: Acute (3) Dyslipidemia: Status: Acute (4) Diabetes: Status: Acute Qualifiers: Diabetes mellitus type: type 2 Diabetes mellitus retirement insulin use: with retirement use Diabetes mellitus complication status: with hyperglycemia Qualified Code(s): E11.65 - Type 2 diabetes mellitus with hyperglycemia; Z79.4 - long-term (current) use of insulin (5) Essential hypertension: Status: Acute (6) S/P angioplasty with stent: Status: Acute Plan #Left-sided weakness with left facial droop and slurred speech 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 Continue on insulin sliding scale.? Hold home antihyperglycemic's ? Continue levothyroxine ? Patient received 325 aspirin on arrival. ? Continue aspirin 81 and Effient Patient is allergic to Plavix. ? Continue on Levemir 75 units at bedtime.? Her home dose is 100 units bedtime. ? Swallow evaluation recommends dysphagia 2 diet ? MRI brain complete. ? Carotid Dopplers complete. ? PFO ruled out ? Monitor on telemetry ? Pt needs inpatient physical therapy. She is weaker on the left side. She cannot take care of herself at home. It would be unsafe for her to go home as her will be unable to care for her. 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
[2021-10-10 14:24] LABS: Glucose Point of Care 199 mg/dL (70-110)
[2021-10-10] MEDS: enoxaparin 40 mg/0.4 mL Syringe SUBCUT (14:29)
[2021-10-10 17:18] LABS: Glucose Point of Care 151 mg/dL (70-110)
[2021-10-10] MEDS: insulin lispro 100 unit/1 mL SUBCUT ×2 (17:51→21:42)
[2021-10-10 21:08] LABS: Glucose Point of Care 190 mg/dL (70-110)
[2021-10-10] MEDS: atorvastatin 40 mg Tablet 80 MG PO (21:11)
[2021-10-11] VITALS (9 sets, daily range): BP systolic 122–179; BP diastolic 68–77; PULSE 68–89; RESP 13–18; TEMP 36.4–36.9; O2SAT 91–96
[2021-10-11 06:35] LABS: Glucose Point of Care 72 mg/dL (70-110)
[2021-10-11] MEDS: gabapentin 100 mg Capsule PO ×2 (09:43→17:06)
[2021-10-11] MEDS: levothyroxine 75 mcg Tablet PO (09:44)
[2021-10-11] MEDS: duloxetine 60 mg Capsule PO (09:44)
[2021-10-11] MEDS: prasugrel 10 MG Tablet PO (09:44)
[2021-10-11] MEDS: aspirin 81 mg EC Tablet PO (09:44)
[2021-10-11] MEDS: metoprolol tartrate 25 mg Tablet PO ×2 (09:44→17:06)
[2021-10-11] MEDS: allopurinol 100 mg Tablet 200 MG PO (09:46)
[2021-10-11 11:34] LABS: Glucose Point of Care 185 mg/dL (70-110)
[2021-10-11] MEDS: insulin lispro 100 unit/1 mL SUBCUT ×3 (12:11→20:53)
[2021-10-11] MEDS: enoxaparin 40 mg/0.4 mL Syringe SUBCUT (15:19)
--- NOTE | 2021-10-11 16:00 | P.PN_ITS ---
Subjective Subjective: Seen this morning. ? no acute events overnight. Vitals/I&O/Wt Last Vital Signs Temp 98.5 F 10/11/21 12:00 Pulse 85 10/11/21 12:00 Resp 18 10/11/21 12:00 BP 126/68 10/11/21 12:00 Pulse Ox 95 10/11/21 15:27 10/11/21 10/11/21 10/11/21 06:59 14:59 22:59 Intake Total 240 / 240 Output Total 320 / 660 Balance -320 / -420 240 / 240 Physical Exam Narrative: General: Alert oriented x3, patient seen sitting up in bed. HEENT: Normocephalic, atraumatic, EOMI, breathing _normally, Cardio: Regular rate rhythm, normal S1-S2, no murmurs Respiratory: Good bilateral air entry, no wheezes no rhonchi appreciated GI: Abdomen soft, nontender, nondistended, bowel sounds + Behavior: Appropriate and cooperative Extremities: no edema, no cyanosis Neuro: Cranial nerves II to XII intact, left facial droop slighty improved, left upper extremity strength 4 out of 5, right upper extremity strength 5 out of 5, left lower extremity 4 out of 5, right lower extremity 5 out of 5.? right superior quadrantanopsia present on peripheral vision testing.? word finding difficulty no longer present Data : 10/10/21 04:48 10/10/21 04:48 A&P Assessment and plan (1) Acute CVA (cerebrovascular accident): Status: Acute (2) ASHD (arteriosclerotic heart disease): Status: Acute (3) Dyslipidemia: Status: Acute (4) Diabetes: Status: Acute Qualifiers: Diabetes mellitus type: type 2 Diabetes mellitus jail insulin use: with textiles sales representative use Diabetes mellitus complication status: with hyperglycemia Qualified Code(s): E11.65 - Type 2 diabetes mellitus with hyperglycemia; Z79.4 - jail (current) use of insulin (5) S/P angioplasty with stent: Status: Acute (6) Essential hypertension: Status: Acute Plan #Left-sided weakness with left facial droop and slurred speech 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 Continue on insulin sliding scale.? Hold home antihyperglycemic's ? Continue levothyroxine ? Patient received 325 aspirin on arrival. ? Continue aspirin 81 and Effient Patient is allergic to Plavix. ? Continue on Levemir 75 units at bedtime.? Her home dose is 100 units bedtime. ? Swallow evaluation recommends dysphagia 2 diet ? MRI brain complete. ? Carotid Dopplers complete. ? PFO ruled out ? Monitor on telemetry ? Pt needs inpatient physical therapy.? She is weaker on the left side.? She cannot take care of herself at home.? It would be unsafe for her to go home as her will be unable to care for her. Plan for discharge tomorrow most [place]. Full code Attestations Medical Necessity Statement*: DC to shelter in AM 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 Care Code Acute Social Services Designee for [facility] Fwd Diagnoses Acute CVA (cerebrovascular accident) I63.9 ASHD (arteriosclerotic heart disease) I25.10 Dyslipidemia E78.5 Diabetes E11.65; Z79.4 Diabetes mellitus type: type 2 Diabetes mellitus textiles sales representative insulin use: with jail use Diabetes mellitus complication status: with hyperglycemia S/P angioplasty with stent Z95.820 Essential hypertension I10
[2021-10-11 17:41] LABS: Glucose Point of Care 179 mg/dL (70-110)
[2021-10-11] MEDS: atorvastatin 40 mg Tablet 80 MG PO (20:30)
[2021-10-11 20:45] LABS: Glucose Point of Care 232 mg/dL (70-110)
[2021-10-12] VITALS (8 sets, daily range): BP systolic 143–168; BP diastolic 58–74; PULSE 63–92; RESP 14–18; TEMP 36.1–37.1; O2SAT 90–96
[2021-10-12] MEDS: morphine IR 15 mg Tablet PO (00:15)
[2021-10-12 06:30] LABS: Glucose Point of Care 73 mg/dL (70-110)
--- NOTE | 2021-10-12 09:03 | PC.SOCIAL ---
IMM Update Pg. 2 of IMM updated and reviewed with patient, who verbalized understanding. Copy provided.
[2021-10-12] MEDS: aspirin 81 mg EC Tablet PO (10:06)
[2021-10-12] MEDS: levothyroxine 75 mcg Tablet PO (10:07)
[2021-10-12] MEDS: gabapentin 100 mg Capsule PO (10:07)
[2021-10-12] MEDS: allopurinol 100 mg Tablet 200 MG PO (10:07)
[2021-10-12] MEDS: duloxetine 60 mg Capsule PO (10:07)
[2021-10-12] MEDS: prasugrel 10 MG Tablet PO (10:07)
[2021-10-12] MEDS: metoprolol tartrate 25 mg Tablet PO (10:07)
--- NOTE | 2021-10-12 10:42 | P.DS_ITS ---
Discharge Providers Date of Admission: 10/09/21 17:07 Date of Discharge: October 12, 2021 Attending Provider at Admission: Kavita Odom MD Attending Provider at Discharge: Kavita Odom MD Primary Care Provider: Natalie Manzano MD Diagnoses at Discharge Discharge Diagnosis (1) Acute CVA (cerebrovascular accident): Status: Acute (2) ASHD (arteriosclerotic heart disease): Status: Acute (3) Dyslipidemia: Status: Acute (4) Diabetes: Status: Acute Qualifiers: Diabetes mellitus type: type 2 Diabetes mellitus senior care insulin use: with senior care use Diabetes mellitus complication status: with hyperglycemia Qualified Code(s): E11.65 - Type 2 diabetes mellitus with hyperglycemia; Z79.4 - senior living (current) use of insulin (5) S/P angioplasty with stent: Status: Acute (6) Essential hypertension: Status: Acute Reason for Visit Reason for Visit: stroke like symptoms Brief History: Ivelisse Gardner is a 81 year old female with past medical history of CAD status post stents 2009, diabetes insulin-dependent, dyslipidemia, hypertension, hypothyroidism who presented to the hospital today with complaint of left lower extremity weakness with slurred speech along with left-sided facial droop.? Patient's is at bedside who provided most of the history.? Patient was asked she was able to report some stuff but rest she does not seem to remember.? She answered please asked my to numerous questions.? Patient is experiencing some word finding difficulty.? She does have headaches from time to time but has not experienced any lately. Last known normal is probably 1 AM.? She denies any headache denies any strokes in the past.? Denies chest pain, fever, chills, bruising, nausea, vomiting, diarrhea.? Patient follows with Dr. Chavira as per hearing instrument specialist.? Review of systems negative septa noted in HPI.? Patient is out of the window for tPA ED course: Blood pressure 145/80, respiratory 16, pulse 102, temperature 98.7, pulse ox 93%.? EKG did not show any ischemic changes.? Head CT was done which did not show an acute stroke.? Most recent echo September 14, 2021 shows normal left ventricular size and systolic function with no wall motion abnormalities.? EF 70 to 75%. Hospital Course Hospital Course Patient was admitted for left-sided facial droop and slurred speech. CT scan head negative. MRI brain showed small region of acute ischemic infarction involving right lentiform nucleus, caudate nucleus, posterior limb of internal capsule. No significant mass-effect. Last known normal was 1 AM. When patient was seen it was the next day in the afternoon in the ER. She was out of the window for tPA so it was not given. Swallow evaluation was also completed and patient was placed on dysphagia 2 diet as per recommendations from speech therapy. Carotid Dopplers were done which showed moderate plaque formation within the carotid arteries without hemodynamically significant ICA stenosis, normal anterograde flow within vertebral arteries. Echocardiogram did not show any PFO. Last echo in September also showed a normal EF. Patient's home dose Levemir is 100 units at bedtime but during hospital stay we kept her on 75 units at bedtime. She did have fasting sugars of 73-83 range. I cut down her nighttime Levemir to 65 units at discharge. Also during hospital stay patient was kept off her antihypertensives and blood pressure remained 1 40-1 60 range systolic over 60-70 range diastolic. I resumed her home lisinopril but cut it down to 20 mg daily. I am holding her triamterene, hydrochlorothiazide, Imdur at this time. I advised her to follow-up with her primary care for further adjustment of her blood pressure medications. Patient is allergic to Plavix and therefore has been placed on aspirin, Effient, high intensity atorvastatin. Patient continues work with physical therapy. She [facility] be [facility]. Patient will need to follow-up with neurology and her primary care doctor outpatient. Compared to admission her strength has improved on her left side however continues to have weakness. Patient's left superior quadrantanopsia remains. Mild left facial droop remains. Slurred speech has resolved. Daughter was present at bedside and all questions were answered. Physical Exam Narrative: General: Alert oriented x3, patient seen sitting up in bed. HEENT: Normocephalic, atraumatic, EOMI, breathing _normally, Cardio: Regular rate rhythm, normal S1-S2, no murmurs Respiratory: Good bilateral air entry, no wheezes no rhonchi appreciated GI: Abdomen soft, nontender, nondistended, bowel sounds + Behavior: Appropriate and cooperative Extremities: no edema, no cyanosis Neuro: Cranial nerves II to XII intact, left facial droop slighty improved, left upper extremity strength 4 out of 5, right upper extremity strength 5 out of 5, left lower extremity 4 out of 5, right lower extremity 5 out of 5.? left superior quadrantanopsia present on peripheral vision testing.? word finding difficulty no longer present Discharge Data Studies Completed and Pending Completed Studies During Hospitalization Category Date Time Status CT chest w con* [id number] Urgent Cat Scan 10/08/21 13:[address] head wo con* [id number] Stat Cat Scan 10/08/21 12:39 Completed XR chest 1V portable [id number] Stat Exams 10/08/21 12:39 Completed MR head wo con* [id number] Urgent MRI 10/08/21 14:19 Completed CV carotid duplex BI* [id number] Urgent Ultrasound 10/08/21 14:19 Completed CV. echo lmt wo/w bubble [id number] Routine Ultrasound 10/08/21 14:19 Completed Radiology Impressions Chest X-Ray 10/08/21 12:39 IMPRESSION: There is a faint 1 cm nodule projecting on the left upper lobe. CT scan of the chest is advised for further evaluation. ADDENDUM: 10/08/21 1400 THIS REPORT CONTAINS FINDINGS THAT MAY BE CRITICAL TO PATIENT CARE. The findings were verbally communicated via telephone conference with DARREL JACINTO at 1:58 PM CDT on 10/08/2021. The findings were acknowledged and understood. Head CT 10/08/21 12:39 IMPRESSION: 1. No acute intracranial abnormality. 2. Generalized chronic atrophy. Chest CT 10/08/21 13:58 IMPRESSION: 1. No significant airspace or pleural disease. 2. Gastric wall thickening. 3. Additional findings as described above. Carotid Doppler Study 10/08/21 14:19 Impression: 1. Moderate plaque formation within the carotid arteries, without hemodynamically significant ICA stensosis. 2. Normal antegradew flow within the vertebral arteries. Head MRI 10/08/21 14:19 IMPRESSION: There is a small region of acute ischemic infarction involving the right lentiform nucleus, caudate, and posterior limb of the internal capsule. No significant mass effect. ADDENDUM: 10/08/214 CRITICAL RESULT: The study was personally discussed on the telephone with Dr. Howard on 10/08/2021 7:32 PM CDT. The results were understood and acknowledged. Laboratory Results WBC 9.2 10^3/uL (4.0-10.0) 10/10/21 04:48 RBC 4.48 10^6/uL (4.1-5.3) 10/10/21 04:48 Hgb 13.0 g/dL (11.5-15.3) 10/10/21 04:48 Hct 41.3 % (37.0-47.0) 10/10/21 04:48 MCV 92.2 fl (81-99) 10/10/21 04:48 MCH 29.0 pg (28.0-34.0) 10/10/21 04:48 MCHC 31.5 g/dL (30.0-36.0) 10/10/21 04:48 RDW 13.8 % (12.1-15.1) 10/10/21 04:48 Plt Count 223 10^3/cmm (130-400) 10/10/21 04:48 MPV 9.3 fL (7.4-10.4) 10/10/21 04:48 Neut % (Auto) 38.4 % 10/10/21 04:48 Lymph % (Auto) 49.5 % 10/10/21 04:48 Stokes % (Auto) 7.2 % 10/10/21 04:48 Eos % (Auto) 4.5 % 10/10/21 04:48 Baso % (Auto) 0.2 % 10/10/21 04:48 Neut # (Auto) 3.51 10^3/uL (1.8-7.7) 10/10/21 04:48 Lymph # (Auto) 4.5 10^3/uL (0.8-4.8) 10/10/21 04:48 Stokes # (Auto) 0.7 10^3/uL (0.2-0.9) 10/10/21 04:48 Eos # (Auto) 0.4 10^3/uL (0.0-0.8) 10/10/21 04:48 Baso # (Auto) 0.0 10^3/uL (0.0-0.1) 10/10/21 04:48 Nucleated RBC % (auto) 0 % 10/10/21 04:48 Nucleated RBCs # 0.0 /100WBC 10/10/21 04:48 PT 12.90 SECONDS (12.1-14.9) 10/08/21 12:45 INR 0.94 (0.8-1.2) 10/08/21 12:45 APTT 25.7 SECONDS (23.9-36.7) 10/08/21 12:45 Sodium 140 mmol/L (136-145) 10/10/21 04:48 Potassium 3.4 mmol/L (3.5-5.1) L 10/10/21 04:48 Chloride 102 mmol/L (98-107) 10/10/21 04:48 Carbon Dioxide 26 mmol/L (22-29) 10/10/21 04:48 Anion Gap 15.4 (5-19) 10/10/21 04:48 BUN 15 mg/dL (8-23) 10/10/21 04:48 Creatinine 0.9 mg/dL (0.5-0.9) 10/10/21 04:48 GFR Calculation Not Reportable 10/10/21 04:48 Glucose 75 mg/dL (65-115) 10/10/21 04:48 POC Glucose 73 mg/dL (70-110) 10/12/21 06:23 Estimat Average Glucose 180 10/08/21 12:45 Hemoglobin A1c 7.9 % (4.0-6.0) H 10/08/21 12:45 Calculated Osmolality 290 mOsm/kg (285-295) 10/10/21 04:48 Calcium 8.8 mg/dL (8.5-10.5) 10/10/21 04:48 Total Bilirubin 0.3 mg/dL (0.15-1.2) 10/08/21 12:45 AST 20 U/L (0-32) 10/08/21 12:45 ALT 18 U/L (0-33) 10/08/21 12:45 Alkaline Phosphatase 65 IU/L (35-105) 10/08/21 12:45 Total Protein 7.1 g/dL (6.6-8.7) 10/08/21 12:45 Albumin 4.2 g/dL (3.5-5.2) 10/08/21 12:45 Globulin 2.9 g/dL (1.3-4.6) 10/08/21 12:45 Triglycerides 134 mg/dL (0-150) 10/08/21 12:45 Cholesterol 137 mg/dL (0-200) 10/08/21 12:45 LDL Cholesterol, Calc 60 mg/dL (50-129) 10/08/21 12:45 HDL Cholesterol 50 mg/dL (60-100) L 10/08/21 12:45 LDL/HDL Ratio 1.20 RATIO (0.00-3.22) 10/08/21 12:45 Cholesterol/HDL Ratio 2.74 mg/dL (0.0-4.40) 10/08/21 12:45 TSH 1.15 uIU/mL (0.27-4.20) 10/08/21 12:45 Urine Color Yellow (Yellow) 10/08/21 Unknown Urine Appearance Clear (CLEAR) 10/08/21 Unknown Urine pH 6 (5-7) 10/08/21 Unknown Ur Specific [place] 1.015 (1.005-1.030) 10/08/21 Unknown Urine Protein Trace (Negative) 10/08/21 Unknown Urine Glucose (UA) Norm (Normal) 10/08/21 Unknown Urine Ketones Negative (Negative) 10/08/21 Unknown Urine Blood Neg (Negative) 10/08/21 Unknown Urine Nitrate Negative (Negative) 10/08/21 Unknown Urine Bilirubin Neg (Negative) 10/08/21 Unknown Urine Urobilinogen Norm mg/dL (Negative) 10/08/21 Unknown Ur Leukocyte Esterase Negative (Negative) 10/08/21 Unknown Urine RBC None /hpf (0-2) 10/08/21 Unknown Urine WBC 0-4 /hpf (0-5) H 10/08/21 Unknown Ur Squamous Epith Cells Rare /hpf (0-5) 10/08/21 Unknown Amorphous Sediment Not Reportable 10/08/21 Unknown Urine Bacteria Trace /hpf (NONE) 10/08/21 Unknown Hyaline Casts 10-15 /lpf H 10/08/21 Unknown Urine Mucus Trace /hpf 10/08/21 Unknown Urine Opiates Screen Negative ng/mL (Negative) 10/08/21 Unknown Ur Barbiturates Screen Negative ng/mL (Negative) 10/08/21 Unknown Ur Phencyclidine Scrn Negative ng/mL (Negative) 10/08/21 Unknown Ur Amphetamines Screen Negative ng/mL (Negative) 10/08/21 Unknown U Benzodiazepines Scrn Negative ng/mL (Negative) 10/08/21 Unknown Urine Cocaine Screen Negative ng/mL (Negative) 10/08/21 Unknown U Marijuana (THC) Screen Negative ng/mL (Negative) 10/08/21 Unknown Vitals Last Vital Signs Temp 97.0 F L 10/12/21 08:00 Pulse 77 10/12/21 08:00 Resp 14 10/12/21 08:00 BP 146/63 10/12/21 08:00 Pulse Ox 96 10/12/21 08:00 Discharge Plan Discharge Patient Disposition: Xfer SNF Condition: Stable Prescriptions: New atorvastatin 40 mg Tablet 80 mg PO BEDTIME 30 Days Qty: 30 0RF prasugrel 10 mg Tablet 10 mg PO DAILY 30 Days Qty: 30 0RF Continued gabapentin 100 mg capsule 100 mg PO BID 0RF PreserVision AREDS 7,160 unit- 113 mg-100 unit tablet 1 tab PO BID 0RF Rx Instructions: administer with AM and PM meals nitroglycerin [Nitrostat] 0.4 mg tablet, sublingual 0.4 mg SUBLINGUAL Q5M PRN (Reason: chest pain) Qty: 25 2RF budesonide [Rhinocort Allergy] 32 mcg/actuation spray,non-aerosol 1 spray intranasal DAILY Qty: 8.43 0RF Rx Instructions: administer into each nostril aspirin [Adult Low Dose Aspirin] 81 mg tablet,delayed release (DR/EC) 81 mg PO DAILY 0RF multivitamin Tablet 1 tab PO BID 0RF blood sugar diagnostic [Contour Next Test Strips] Strip See Rx Instructions .ROUTE .COMPLEX Qty: 100 0RF Dose Instruction: USE TO TEST BLOOD SUGAR ONCE DAILY. Rx Instructions: USE TO TEST BLOOD SUGAR ONCE DAILY. (DME) pen needle, diabetic [TechLITE Pen Needle] 32 gauge x 5/32 needle See Rx Instructions .ROUTE .COMPLEX Qty: 100 0RF Dose Instruction: USE WITH LEVEMIR EVERY NIGHT AT BEDTIME. Rx Instructions: USE WITH LEVEMIR EVERY NIGHT AT BEDTIME. metoprolol tartrate 25 mg tablet See Rx Instructions .ROUTE .COMPLEX Qty: 180 0RF Dose Instruction: TAKE 1 TABLET BY MOUTH TWICE DAILY. Rx Instructions: TAKE 1 TABLET BY MOUTH TWICE DAILY. allopurinol 100 mg tablet 200 mg PO DAILY 0RF levothyroxine 75 mcg tablet 75 mcg PO DAILY 0RF metformin 500 mg tablet extended release 24 hr 500 mg PO BID 0RF omeprazole 40 mg capsule,delayed release(DR/EC) 40 mg PO DAILY 0RF duloxetine 60 mg capsule,delayed release(DR/EC) 60 mg PO DAILY 0RF Januvia 100 mg tablet 100 mg PO DAILY 0RF Changed Levemir FlexTouch U-100 Insuln 100 unit/mL (3 mL) insulin pen 65 unit SUBCUT BEDTIME Qty: 90 0RF Dose Instruction: INJECT 100 UNITS SUBCUTANEOUS EVERY NIGHT AT BEDTIME. PLEASE GIVE SUFFICIENT QUANTITY FOR 90 DAY SUPPLY lisinopril 10 mg tablet 20 mg PO DAILY Qty: 0 0RF Held isosorbide mononitrate 60 mg tablet extended release 24 hr 60 mg PO BID Qty: 180 3RF Hold Instructions: see pcp before resuming Rx Instructions: 09/01/21 Dose increase triamterene-hydrochlorothiazid 37.5-25 mg tablet 1 tab PO DAILY 0RF Hold Instructions: see pcp before resuming Discontinued simvastatin 40 mg tablet 40 mg PO DAILY 0RF Discharge Orders: Discharge Order (Routine); Ordered 10/12/21 Ordered By: Kavita Odom Referrals: Rebecca Bishop MD [Physician] - 1 week Natalie Manzano MD [Primary Care Provider] - 1-3 days Discharge Diet: Cardiac and Diabetic Discharge Activity: Increase activity as tolerated and As per PT/OT instructions Activity Restrictions/Additional Instructions: Your blood pressure remained in a good range during hospital stay without Imdur and triametrene- hydrochlorothiazide. I have restarted your lisinopril but cut it down to 20 mg once a day. I would like you to follow-up with your primary care doctor to further optimize your blood pressure medications. Also your morning blood sugars have been on lower side 70s to 80s. I have cut down your nighttime insulin Levemir from 100 units to 65 units. During hospital stay you were on 75 units and did have fasting hypoglycemia. I would like you to check your blood sugar every day and keep a log sheet so that further adjustments can be made. Please follow-up with your primary care doctor for management of blood sugar and high blood pressure. Discharge Attestations Time Spent in Discharge Care*: greater than 30 min Quality Metrics Clinical Quality Measures [ Cerebrovascular Accident { Contraindication to Antithrombotic: None; antithrombotic prescribed; Contraindication to Anticoagulation: None; anticoagulation prescribed; Contraindication to Statin: None; Statin prescribed; Contraindication to tPA: Did not meet criteria; Onset of Symptoms Date: 05/01/22; Symptom Onset Unknown: Yes; Reason stroke education not provided: Stroke education provided to patient;}] 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 Care Code Acute Chg FW DC note Diagnoses Acute CVA (cerebrovascular accident) I63.9 ASHD (arteriosclerotic heart disease) I25.10 Dyslipidemia E78.5 Diabetes E11.65; Z79.4 Diabetes mellitus type: type 2 Diabetes mellitus rn provider relations insulin use: with senior care use Diabetes mellitus complication status: with hyperglycemia S/P angioplasty with stent Z95.820 Essential hypertension I10
[2021-10-12] MEDS: insulin lispro 100 unit/1 mL SUBCUT (13:25)
--- NOTE | 2021-10-12 14:49 | PC.NURSE ---
REPORT CALLED TO Murray HUNTLEY LPN AT [facility] AT [phone]
[2021-10-12 20:56] LABS: Glucose Point of Care 192 mg/dL (70-110)
== END 2021-10-12 15:00 | disposition skilled nursing facility (03) | DRG 65 ==
LOC: ER 13:04 → MEDSURG 14:29
PROVIDERS: Admitting Provider Internal Medicine; Emergency Provider Emergency Medicine; PCP Family Medicine; Visit Provider Internal Medicine
DX: I63.9 Cerebral infarction, unspecified (principal); G81.92 Hemiplegia, unspecified affecting left dominant side; R29.810 Facial weakness; R47.81 Slurred speech; R29.702 NIHSS score 2; I25.10 Atherosclerotic heart disease of native coronary artery without angina pectoris; Z95.5 Presence of coronary angioplasty implant and graft; E11.65 Type 2 diabetes mellitus with hyperglycemia; E78.5 Hyperlipidemia, unspecified; I10 Essential (primary) hypertension; E03.9 Hypothyroidism, unspecified; Z79.82 Long term (current) use of aspirin; Z79.4 Long term (current) use of insulin; Z79.84 Long term (current) use of oral hypoglycemic drugs
CPT/HCPCS: 36415; 36416; 70450; 70551; 71045; 71260; 80048; 80053; 80061; 80306; 81001; 82962; 83036; 84443; 85025; 85610; 85730; 92507; 92523; 92526; 92610; 93005; 93880; 94664; 96372; 97110; 97116; 97161; 97167; 97530; 97535; 99285; C1751; C8924; G0378; J1650; J1815; Q9967

== ENCOUNTER → 2021-10-25 09:57 | Outpatient (BNVA) | payer OTHER, BC, MEDICARE, SELFPAY | PROVIDERS: PCP Family Medicine; Visit Provider Specialist | DX: G30.9 Alzheimer's disease, unspecified (principal); F02.80 Dementia in other diseases classified elsewhere, unspecified severity, without behavioral disturbance, psychotic disturbance, mood disturbance, and anxiety; E11.9 Type 2 diabetes mellitus without complications; Z79.4 Long term (current) use of insulin; I10 Essential (primary) hypertension; Z86.73 Personal history of transient ischemic attack (TIA), and cerebral infarction without residual deficits | CPT/HCPCS: 96116; 99205 ==

== ENCOUNTER → 2021-12-07 14:03 | Outpatient (BNVA) | payer MEDICARE, OTHER, BC, SELFPAY | PROVIDERS: PCP Family Medicine; Visit Provider Internal Medicine Cardiovascular Disease | DX: I25.10 Atherosclerotic heart disease of native coronary artery without angina pectoris (principal); G30.9 Alzheimer's disease, unspecified; Z86.73 Personal history of transient ischemic attack (TIA), and cerebral infarction without residual deficits; E78.5 Hyperlipidemia, unspecified; E11.65 Type 2 diabetes mellitus with hyperglycemia; Z79.4 Long term (current) use of insulin; Z95.820 Peripheral vascular angioplasty status with implants and grafts; I10 Essential (primary) hypertension | CPT/HCPCS: 99214 ==

== ENCOUNTER → 2022-01-29 09:26 | Outpatient (BNVA) | payer MEDICARE, BC, OTHER, SELFPAY | PROVIDERS: PCP Family Medicine; Visit Provider Specialist | DX: G30.9 Alzheimer's disease, unspecified (principal); F02.80 Dementia in other diseases classified elsewhere, unspecified severity, without behavioral disturbance, psychotic disturbance, mood disturbance, and anxiety; I25.10 Atherosclerotic heart disease of native coronary artery without angina pectoris; E11.65 Type 2 diabetes mellitus with hyperglycemia; Z79.4 Long term (current) use of insulin; I69.354 Hemiplegia and hemiparesis following cerebral infarction affecting left non-dominant side | CPT/HCPCS: 96116; 99213; 99214 ==

== ENCOUNTER → 2022-05-01 13:30 | Outpatient (BNVA) | payer MEDICARE, OTHER, BC, SELFPAY | PROVIDERS: PCP Family Medicine; Visit Provider Specialist | DX: G30.9 Alzheimer's disease, unspecified (principal); F02.80 Dementia in other diseases classified elsewhere, unspecified severity, without behavioral disturbance, psychotic disturbance, mood disturbance, and anxiety; I10 Essential (primary) hypertension; I63.9 Cerebral infarction, unspecified; E11.65 Type 2 diabetes mellitus with hyperglycemia; Z79.4 Long term (current) use of insulin; Z95.820 Peripheral vascular angioplasty status with implants and grafts; R10.32 Left lower quadrant pain; I69.398 Other sequelae of cerebral infarction; G47.20 Circadian rhythm sleep disorder, unspecified type; Z79.899 Other long term (current) drug therapy | CPT/HCPCS: 99215 ==

== ENCOUNTER 2022-05-26 08:09 | Inpatient (IN) | payer MEDICARE, OTHER, BC, SELFPAY ==
[2022-05-26] VITALS (15 sets, daily range): BP systolic 125–160; BP diastolic 67–89; PULSE 91–111; RESP 15–20; TEMP 36.5–37.7; O2SAT 90–98; BMI 29.9
--- NOTE | 2022-05-26 08:13 | XRR_ITS ---
PROCEDURE INFORMATION: Exam: XR Left Hip Exam date and time: 05/26/2022 8:18 AM Age: 82 years old Clinical indication: Injury or trauma; Blunt trauma (contusions or hematomas); Patient HX: Fall at home this a. M. C/O left hip pain with shortening of left leg. TECHNIQUE: Imaging protocol: Radiologic exam of the Left hip. Views: 2 or 3 views hip with pelvis when performed. COMPARISON: CR XR lumbar spine 2-3V* [id number] 06/24/2020 2:43 PM FINDINGS: Bones/joints: There is a comminuted intertrochanteric fracture of the left femur with varus deformity. Soft tissues: Unremarkable. XR/XR hip LT 2-3V wo/w pel* [id number] IMPRESSION: Comminuted intertrochanteric fracture.
--- NOTE | 2022-05-26 08:24 | ECG_ITS ---
[facility] Test Date: 2022-05-26 Pat Name: Ivelisse Gardner Department: Room: Gender: Female Corporate Travel Coordinator: : 1940 Requested By: George Hdz Order Number: [id number] Reading MD: Guerrero Claros Measurements Intervals [place] Rate: 88 P: 81 [place]: 225 QRS: 39 QRSD: 81 T: 84 QT: 377 QTc: 457 Interpretive Statements SINUS RHYTHM WITH FIRST DEGREE AV BLOCK NONSPECIFIC T-WAVE ABNORMALITY ANTERIOR MYOCARDIAL INFARCTION , OF INDETERMINATE AGE [40+ ms Q WAVE AND/OR ST/T ABNORMALITY IN V3/V4] Compared to ECG 10/08/2021 12:50:53 T-wave abnormality now present Electronically Signed On 05-27-2022 15:31:58 [employer] 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
--- NOTE | 2022-05-26 08:26 | ED_ITS ---
HPI - Fall General: Chief Complaint: Fall Stated Complaint: LEFT HIP PAIN S/P FALL Time Seen by Provider: 05/26/22 08:11 Source: patient Mode of arrival: EMS History of Present Illness: 82-year-old female presents emergency room from home after a fall. She is complaining of left hip pain or left leg is externally rotated and shortened she was given 100 of fentanyl in route is difficult to get a lot of accurate history from her she thinks she may have eaten breakfast before she fell she has a history of Alzheimer's disease as well as a previous stroke and coronary artery disease and diabetes. She cannot tell me specifically why she fell she does say she did not lose consciousness or hit her head she has no evidence of trauma about her head denies any neck pain. MD complaint: fall Onset (ago): hour(s) Fall from: standing Fall witnessed: no Place fall occurred: home Loss of consciousness: None Prolonged down time: no Location of injury - extremities: Left: thigh (Hip) Associated symptoms-after fall: Reports confusion; Denies abdominal pain, chest pain, difficulty walking, headache(s), hematuria, lightheadedness, neck pain, numbness, short of breath, vertigo or weakness Review of Systems Const: Denies: fever(s), chills, body aches, change in appetite, fatigue or malaise ENMT: Denies: throat pain, ear or mastoid pain, nasal discharge or nasal congestion Card: Denies: chest pain or lightheadedness Resp: Denies: dyspnea, productive cough or non-productive cough GI: Denies: abdominal pain, nausea or vomiting : Denies: dysuria, urinary frequency, urinary urgency or hematuria Musc: Reports: joint pain; Denies: neck pain Skin/Breast: Denies: rash or pruritus Neuro: Reports: confusion; Denies: headache(s), difficulty walking or vertigo PFSH ED PFSH: Medical History (Updated 05/26/22 @ 08:40 by George Zurita DO) ASHD (arteriosclerotic heart disease) Chest pain Diabetes Dyslipidemia Essential hypertension Hypothyroidism Surgical History (Updated 05/26/22 @ 08:40 by George Zurita DO) S/P angioplasty with stent S/P cataract extraction S/P cholecystectomy S/P hysterectomy Family History Father Diabetes CAD (coronary artery disease) Mother Cancer COLON Other Hyperlipidemia Hypertension Social History Smoking and tobacco status: never smoked Alcohol intake: never Household members: spouse Marital status: Current occupational status: retired Physical Exam Const: GENERAL APPEARANCE: cooperative and comfortable ORIENTATION/CONSCIOUSNESS: Yes awake HENMT: COMMON NORMALS: normocephalic, atraumatic and hearing grossly normal bilaterally HEAD & SCALP: normocephalic and atraumatic Resp: COMMON NORMALS: normal respiratory effort, No retractions, No use of accessory muscles and clear to auscultation bilaterally AUSCULTATION: clear to auscultation bilaterally Cardio: COMMON NORMALS: regular rate, regular rhythm and No murmurs present (Cardio) RATE: regular rate RHYTHM: regular rhythm GI: COMMON NORMALS: Soft to palpation and No hepatosplenomegaly present AUSCULTATION: Yes normoactive bowel sounds PALPATION: Yes Soft to palpation, No Tenderness to palpation present (GI), No Guarding due to palpation present (G I) and Yes No hepatosplenomegaly present Extremity: COMMON NORMALS: normal to inspection, capillary refill normal, no clubbing, cyanosis or edema, no calf tenderness and no pedal edema Skin: COMMON NORMALS: no rashes or lesions noted GENERAL SKIN EXAM: no rashes or lesions noted Course Vital Signs: Vital signs: Vital Signs Pulse Rate 91 05/26/22 08:41 Respiratory Rate 16 05/26/22 08:41 Blood Pressure 125/67 05/26/22 08:41 Pulse Oximetry 98 05/26/22 08:41 Oxygen Delivery Me thod 05/26/22 08:41 Oxygen Flow Rate 2 05/26/22 08:41 MDM - Fall Medical Decision Making Acute left intertrochanteric hip fracture. Patient does not appear released on current medicine list to begin anticoagulants. History is little sketchy between her dementia and the fentanyl she received. She does states she ate breakfast before she fell there is no evidence of head trauma however given her current mental status CT head negative cervical spine chronic changes nothing acute. Chest unremarkable.. Discussed with hospitalist and with orthopedist orders written. Preop labs ordered. Medical Records I reviewed the patient's medical records. Lab Data I reviewed the patient's lab results. Radiology Impressions Hip/Pelvis X-Ray 05/26/22 08:13 IMPRESSION: Comminuted intertrochanteric fracture. Chest X-Ray 05/26/22 08:26 IMPRESSION: No acute findings. Head CT 05/26/22 08:36 IMPRESSION: No acute intracranial abnormality. Laboratory Results POC Glucose 277 mg/dL (70-110) H 05/26/22 08:42 Discharge Plan Discharge Patient Disposition: Admitted As Inpatient Clinical Impression: Closed intertrochanteric fracture of left femur, ASHD (arteriosclerotic heart disease), Alzheimer disease, Essential hypertension, S/P angioplasty with stent, Diabetes, History of CVA (cerebrovascular accident) Condition: Stable 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 Care Code ED Flame Cutting Supervisor for Fabiola Fwfany Exam Detailed
--- NOTE | 2022-05-26 08:26 | XRR_ITS ---
PROCEDURE INFORMATION: Exam: XR Chest Exam date and time: 05/26/2022 8:22 AM Age: 82 years old Clinical indication: Screening exam; Pre-operative exam; Other: Ortho; Prior surgery; Surgery type: Coronary stent; Patient HX: Pre op for hip fracture; Additional info: Preop for hip fracture TECHNIQUE: Imaging protocol: Radiologic exam of the chest. Views: 1 view. COMPARISON: CT chest w con* [id number] 10/08/2021 3:17 PM FINDINGS: Lungs: Unremarkable. No consolidation. Pleural spaces: Unremarkable. No pleural effusion. No pneumothorax. Heart/Mediastinum: Unremarkable. No cardiomegaly. Bones/joints: Unremarkable. XR/XR chest 1V [id number] IMPRESSION: No acute findings.
--- NOTE | 2022-05-26 08:35 | XRR_ITS ---
PROCEDURE INFORMATION: Exam: XR Cervical Spine Exam date and time: 05/26/2022 9:08 AM Age: 82 years old Clinical indication: Injury or trauma; Blunt trauma; Prior surgery; Surgery type: Dental; Patient HX: Fall at home this a. M. C/O neck pain. TECHNIQUE: Imaging protocol: Radiologic exam of the cervical spine. Views: 2 or 3 views. COMPARISON: CT head wo con* [id number] 05/26/2022 8:59 AM FINDINGS: Bones/joints: No fracture, malalignment or other acute abnormality is seen in the cervical spine. Multilevel chronic degenerative changes are present. Soft tissues: Unremarkable. XR/XR cervical spine 3V* [id number] IMPRESSION: No acute abnormality.
--- NOTE | 2022-05-26 08:36 | CTR_ITS ---
PROCEDURE INFORMATION: Exam: CT Head Without Contrast Exam date and time: 05/26/2022 8:59 AM Age: 82 years old Clinical indication: Injury or trauma; Fall; Blunt trauma (contusions or hematomas); Consciousness not specified; Additional info: Fall/trauma TECHNIQUE: Imaging protocol: Computed tomography of the head without contrast. Radiation optimization: All CT scans at this facility use at least one of these dose optimization techniques: automated exposure control; mA and/or kV adjustment per patient size (includes targeted exams where dose is matched to clinical indication); or iterative reconstruction. COMPARISON: MR head wo con* [id number] 10/08/2021 6:27 PM RADIATION DOSE METRICS: Total DLP (mGy-cm): 978.38 FINDINGS: Brain: No intracranial hemorrhage, edema or other acute abnormality is seen in the brain. There is generalized chronic atrophy with prominence of the ventricles and sulci. There is an old lacunar infarct in the right periventricular white matter and also in the clemente.. No mass effect or midline shift. Cerebral ventricles: Mild ventricular prominence consistent with atrophy. Paranasal sinuses: Visualized sinuses are unremarkable. No fluid levels. Mastoid air cells: Visualized mastoid air cells are well aerated. Bones/joints: Unremarkable. No acute fracture. Soft tissues: Unremarkable. CT/CT head wo con* [id number] IMPRESSION: No acute intracranial abnormality.
[2022-05-26 08:54] LABS: Glucose Point of Care 277 mg/dL (70-110)
--- NOTE | 2022-05-26 10:36 | ECG_ITS ---
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
[2022-05-26 10:54] LABS: Basophils % 0.2 %; Eosinophils # 0.1 10^3/uL (0.0-0.8); Eosinophils % 0.5 %; Hematocrit 36.3 % (37.0-47.0); Hemoglobin 11.9 g/dL (11.5-15.3); Lymphocytes # 2.2 10^3/uL (0.8-4.8); Lymphocytes % 13.8 %; Mean Corpuscular HGB Conc 32.8 g/dL (30.0-36.0); Mean Corpuscular Hemoglobin 30.2 pg (28.0-34.0); Mean Corpuscular Volume 92.1 fl (81-99); Mean Platelet Volume 9.2 fL (7.4-10.4); Monocytes % 6.3 %; Neutrophils # 12.31 10^3/uL (1.8-7.7); Neutrophils % 78.6 %; Nucleated Red Blood Cells % 0 %; Platelet Count 246 10^3/cmm (130-400); Red Blood Count 3.94 10^6/uL (4.1-5.3); Red Cell Distribution Width 13.2 % (12.1-15.1); White Blood Count 15.7 10^3/uL (4.0-10.0)
[2022-05-26 11:01] LABS: INR 1.13 (0.8-1.2); Partial Thromboplastin Time 25.1 SECONDS (23.9-36.7)
[2022-05-26 11:17] LABS: Troponin(5th) Baseline 10 ng/L (0-10)
--- NOTE | 2022-05-26 11:23 | ECG_ITS ---
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 Reamer: : 1940 Requested By: Michael Purdy Order Number: [id number] Reading MD: Guerrero Claros Measurements Intervals [place] Rate: 95 P: 152 SD: 218 QRS: 51 QRSD: 83 T: 152 QT: 339 QTc: 428 Interpretive Statements SINUS RHYTHM WITH FIRST DEGREE AV BLOCK POSSIBLE ANTERIOR MYOCARDIAL INFARCTION , OF INDETERMINATE AGE [30 ms Q WAVE IN V3/V4, OR R < 0.2 mV IN V4] POSSIBLE INFERIOR MYOCARDIAL INFARCTION , PROBABLY OLD [30 ms Q WAVE IN II/aVF] Compared to ECG 05/26/2022 10:36:33 No significant change Electronically Signed On 05-27-2022 15:50:15 CORPORATE PHYSICAL SECURITY SUPERVISOR by Guerrero Claros [id number]
[2022-05-26 11:27] LABS: Alanine Aminotransferase 26 U/L (0-33); Albumin Level 3.9 g/dL (3.5-5.2); Alkaline Phosphatase 82 U/L (35-105); Anion Gap 17.1 (5-19); Aspartate Amino Transferase 31 U/L (0-32); Blood Urea Nitrogen 18 mg/dL (8-23); Calcium 9.4 mg/dL (8.5-10.5); Carbon Dioxide 25 mmol/L (22-29); Chloride 101 mmol/L (98-107); Globulin 2.7 g/dL (1.3-4.6); Glucose 276 mg/dL (65-115); NT Pro B Type Natriuretic Pept 150 pg/mL (0-450); Osmolality Calculated 300 mOsm/kg (285-295); Potassium 4.1 mmol/L (3.5-5.1); Sodium 139 mmol/L (136-145); Thyroid Stimulating Hormone 2.54 uIU/mL (0.27-4.20); Total Bilirubin 0.4 mg/dL (0.15-1.2); Total Protein 6.6 g/dL (6.6-8.7)
[2022-05-26 11:59] LABS: Bilirubin Urine Neg (Negative); Blood Urine Trace (Negative); Glucose Urine UA Norm (Normal); Ketones Urine 1+ (Negative); Nitrate Urine Negative (Negative); Protein Urine Trace (Negative); Urine Appearance Hazy (CLEAR); Urine Color Yellow (Yellow); pH Urine 5 (5-7)
[2022-05-26 12:00] LABS: Add Urine Culture? Yes; Add Urine Microscopic? YES; Bacteria Urine 3+ /hpf; Leukocyte Esterase Urine 2+ (Negative); RBC Urine 0-4 /hpf (0-2); Squamous Epithelial Cell Urine 0-4 /hpf (0-5); Urobilinogen Urine 1 mg/dL (Negative); WBC Urine 40-55 /hpf (0-5)
--- NOTE | 2022-05-26 12:39 | PM.HP ---
Providers/Chief Complaint Admitting Physician: Michael Purdy MD Primary Care Provider: Natalie Manzano MD Chief Complaint: LEFT HIP PAIN S/P FALL History of Present Illness Ivelisse Gardner is a 82 year old female with a past medical history of CVA, CAD, diabetes, hypertension, dyslipidemia, hypothyroidism who presents [facility] for follow-up. Patient tells me that this morning, she was letting out her dog, when she let her dog back in, her knees buckled on her and she fell on the left side hitting her left knee, left hip against the concrete. She had severe left knee pain, inability to ambulate, inability to stand up. Denies any significant head trauma, loss of consciousness, no chest pain, no palpitations, no strokelike symptoms, no seizure-like symptoms. Review of Systems Const: Denies: fever(s) Eyes: Denies: change in vision Card: Denies: chest pain Resp: Denies: dyspnea GI: Denies: abdominal pain : Denies: flank pain or dysuria Musc: Reports: muscle weakness Skin/Breast: Denies: rash Neuro: Denies: headache(s) or numbness in extremities Psych: Denies: anxiety Endo: Denies: polyuria Medications/Allergies Home Medications Medication Instructions Recorded Confirmed Last Taken Type aspirin 81 mg tablet,delayed 81 mg PO DAILY 06/29/19 05/01/22 10/08/21 History release (Adult Low Dose Aspirin) blood sugar diagnostic (Contour See Rx Instructions .Route 05/12/20 05/01/22 Unknown Rx Next Test Strips) .COMPLEX #100 strips gabapentin 100 mg capsule 100 mg PO BID 01/05/21 05/01/22 10/08/21 History nitroglycerin 0.4 mg sublingual 0.4 mg sublingual Q5M PRN chest 06/26/21 05/01/22 Unknown Rx tablet (Nitrostat) pain #25 tabs vitamins A,C,J-bfpl-tnjqge 2,148 1 tab PO BID 06/26/21 05/01/22 10/08/21 History mcg-113 mg-45 mg-17.4 mg tablet (PreserVision AREDS) pen needle, diabetic 32 gauge x #100 ea 08/07/21 05/01/22 Unknown Rx (TechLITE Pen Needle) budesonide 32 mcg/actuation nasal 1 spray intranasal DAILY #8.43 mL 08/28/21 05/01/22 Unknown Rx spray (Rhinocort Allergy) allopurinol 100 mg tablet 200 mg PO DAILY 10/08/21 05/01/22 10/08/21 History duloxetine 60 mg capsule,delayed 60 mg PO DAILY 10/08/21 05/01/22 10/08/21 History release levothyroxine 75 mcg tablet 75 mcg PO DAILY 10/08/21 05/01/22 10/08/21 History metformin 500 mg tablet,extended 500 mg PO BID 10/08/21 05/01/22 10/08/21 History release 24 hr omeprazole 40 mg capsule,delayed 40 mg PO DAILY 10/08/21 05/01/22 10/08/21 History release lisinopril 10 mg tablet 20 mg PO DAILY #0 tabs 10/12/21 05/01/22 10/08/21 Rx Wheeled Walker with Seat #1 ea 10/25/21 05/01/22 Unknown Rx metoprolol tartrate 25 mg tablet See Rx Instructions .Route 11/20/21 05/01/22 Unknown Rx .COMPLEX #180 tabs prasugrel 10 mg tablet 10 mg PO DAILY 12/07/21 05/01/22 Unknown History amlodipine 5 mg tablet 5 mg PO DAILY 01/29/22 05/01/22 Unknown History potassium chloride 8 mEq 8 meq PO DAILY 01/29/22 05/01/22 Unknown History capsule,extended release galantamine 8 mg 24 hr 8 mg PO BID 90 days #180 caps 05/01/22 05/01/22 Unknown Rx capsule,extended release sitagliptin 100 mg tablet (Januvia) 100 mg PO DAILY 90 days #90 tabs 05/01/22 05/01/22 Unknown Rx insulin detemir U-100 100 unit/mL See Rx Instructions .Route 05/09/22 Unknown Rx (3 mL) subcutaneous pen (Levemir .COMPLEX #30 mL FlexTouch U-100 Insulin) Allergies Allergy/AdvReac Type Severity Reaction Status Date / Time azithromycin [From Zithromax] Allergy Mild rash Verified 05/01/22 13:38 Quinidine-Quinine Analogues Allergy Mild rash Verified 05/01/22 13:38 ([facility]: Medical History (Updated 05/26/22 @ 12:43 by Michael Purdy MD) ASHD (arteriosclerotic heart disease) Chest pain Diabetes Dyslipidemia Essential hypertension Hypothyroidism Surgical History (Updated 05/26/22 @ 08:40 by George Zurita DO) S/P angioplasty with stent S/P cataract extraction S/P cholecystectomy S/P hysterectomy Family History Father Diabetes CAD (coronary artery disease) Mother Cancer COLON Other Hyperlipidemia Hypertension Social History Smoking and tobacco status: never smoked Alcohol intake: never Household members: spouse Marital status: Current occupational status: retired Vitals/I&O/Wt Last Vital Signs Pulse 94 05/26/22 12:00 Resp 18 05/26/22 12:00 BP 128/89 05/26/22 12:00 Pulse Ox 94 05/26/22 12:00 O2 Del Method 05/26/22 12:00 O2 Flow Rate 2 05/26/22 10:46 Physical Exam Const: COMMON NORMALS: no acute distress and patient oriented x3 HENMT: COMMON NORMALS: normocephalic HEAD & SCALP: normocephalic Eye: COMMON NORMALS: Equal, round and reactive pupils present and EOMs intact bilaterally Neck/C-Spine: COMMON NORMALS: no JVD Lymph: LYMPHATIC: no lymphadenopathy noted Resp: COMMON NORMALS: normal respiratory effort, No retractions, No use of accessory muscles and clear to auscultation bilaterally AUSCULTATION: clear to auscultation bilaterally Cardio: COMMON NORMALS: regular rate, regular rhythm, S1 normal heart sound present and S2 normal heart sound present RATE: regular rate RHYTHM: regular rhythm HEART SOUNDS: S1 normal heart sound present and S2 normal heart sound present GI: COMMON NORMALS: Normal to inspection, nondistended, normoactive bowel sounds present, Soft to palpation, non-tender, no masses and no bruits PALPATION: Yes Soft to palpation and Yes No hepatosplenomegaly present : COMMON NORMALS: Yes no CVA tenderness Back/Pelvis: OTHER: Decreased motion in left lower extremity due to severe pain, left knee upon examination and swelling, Extremity: COMMON NORMALS: no calf tenderness and no pedal edema Neuro: COMMON NORMALS: patient oriented x3, CN's II-XII intact bilaterally, moves all extremities and no focal motor deficits Psych: COMMON NORMALS: mental status grossly normal Urinary Catheter Management: Vaughn Latex: Cath Placed During This Visit: yes Urinary Catheter Date of Insertion: 05/26/22 Urinary Catheter Time of Insertion: 10:46 Data 05/26/22 10:43 05/26/22 10:43 A&P Assessment and plan (1) Closed intertrochanteric fracture of left femur: (2) History of CVA (cerebrovascular accident): (3) Alzheimer disease: (4) ASHD (arteriosclerotic heart disease): (5) Dyslipidemia: (6) Diabetes: (7) Essential hypertension: (8) UTI (urinary tract infection): Plan Left hip fracture -Pain control morphine 2 mg every 4 hours -Lovenox for DVT prophylaxis -Is on aspirin 81 mg -PT OT -Orthopedic service consulted for surgical invention -Full code -Lovenox for DVT prophylaxis Alzheimer's disease, is on galantamine Hypertension continue amlodipine, lisinopril Type 2 diabetes mellitus, moderate dose sliding scale, Lantus 20 units at bedtime UTI, continue Rocephin Attestations Medical Necessity Statement*: Patient requires hospitalization, inpatient, greater than 2 midnights for left hip fracture 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 Care Code Acute Color Specialist for [facility] Fwd Diagnoses Closed intertrochanteric fracture of left femur S72.142A History of CVA (cerebrovascular accident) Z86.73 Alzheimer disease G30.9; F02.80 ASHD (arteriosclerotic heart disease) I25.10 Dyslipidemia E78.5 Diabetes E11.9 Essential hypertension I10 UTI (urinary tract infection) N39.0
[2022-05-26 12:45] LABS: Troponin 5 2HR 8.76 ng/L (0-10)
[2022-05-26 12:52] LABS: NT Pro B Type Natriuretic Pept 150 pg/mL (0-450); Procalcitonin 0.09 ng/mL (0-0.5)
[2022-05-26 14:05] LABS: Cholesterol 120 mg/dL (0-200); HDL Cholesterol 40 mg/dL (60-100); LDL Cholesterol Calculated 37 mg/dL (50-129); LDL HDL Ratio 0.93 RATIO (0.00-3.22); Thyroid Stimulating Hormone 2.61 uIU/mL (0.27-4.20); Triglycerides 216 mg/dL (0-150)
[2022-05-26] MEDS: morphine 4 mg/mL SDV 1 mL 2 MG IVP ×2 (14:08→19:23)
[2022-05-26] MEDS: pantoprazole 40 mg SDV IVP (14:08)
[2022-05-26] MEDS: cefTRIAXone 1,000 MG in sodium chloride 0.9% (plus) 50 ML 100 MG IV (14:09)
[2022-05-26] MEDS: sodium chloride 0.9% 1,000 ML 100 ML IV ×2 (14:10→23:27)
[2022-05-26 14:12] LABS: Estmated Average Glucose 186; Hemoglobin A1C 8.1 % (4.0-6.0)
[2022-05-26 14:16] LABS: Troponin 5 2HR Delta -2.24 ABS# (0-10)
--- NOTE | 2022-05-26 14:42 | XRR_ITS ---
PROCEDURE INFORMATION: Exam: XR Left Knee Exam date and time: 05/26/2022 2:49 PM Age: 82 years old Clinical indication: Injury or trauma; Fall; Blunt trauma; Knee; Left TECHNIQUE: Imaging protocol: Radiologic exam of the Left knee. Views: 1 or 2 views. COMPARISON: No relevant prior studies available. FINDINGS: Bones/joints: There is a transverse fracture off the inferior left patella. There is joint space narrowing in the medial compartment. There is osteopenia. Soft tissues: There is a small suprapatellar effusion. XR/XR knee LT 1-2V [id number] IMPRESSION: There is a transverse fracture off the inferior left patella.
--- NOTE | 2022-05-26 15:32 | ECG_ITS ---
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1940 Requested By: Michael Purdy Order Number: [id number] Reading MD: Guerrero Claros Measurements Intervals [place] Rate: 98 P: 70 MA: 219 QRS: 21 QRSD: 79 T: 121 QT: 342 QTc: 437 Interpretive Statements SINUS RHYTHM WITH FIRST DEGREE AV BLOCK NONSPECIFIC T-WAVE ABNORMALITY POSSIBLE INFERIOR MYOCARDIAL INFARCTION , PROBABLY OLD [30 ms Q WAVE IN II/aVF] Compared to ECG 05/26/2022 11:41:01 T-wave abnormality now present Ectopic atrial rhythm no longer present Electronically Signed On 05-27-2022 15:47:37 MEASUREMENT COORDINATOR by Guerrero Claros [id number]
[2022-05-26 16:43] LABS: Glucose Point of Care 173 mg/dL (70-110)
[2022-05-26 17:13] LABS: Troponin 5 6HR 10.08 ng/L (0-10)
[2022-05-26 17:15] LABS: Troponin 5 6HR Delta 0.08 ng/L (0-12)
[2022-05-26] MEDS: metoprolol tartrate 25 mg Tablet PO (18:24)
[2022-05-26] MEDS: insulin lispro 100 unit/1 mL SUBCUT ×2 (18:26→21:50)
[2022-05-26] MEDS: gabapentin 100 mg Capsule PO (18:26)
--- NOTE | 2022-05-26 19:37 | P.CONIM_ITS ---
Providers/Reason For Consult Consulting Physician/Specialty*: Kezia Ortega MD Reason for Consult*: Left intertrochanteric hip fracture, left patella fracture Requesting Physician: George Zurita MD Attending Physician: Michael Purdy MD Primary Care Provider: Natalie Manzano MD History of Present Illness History of Present Illness Ivelisse Gardner is a 82 year old female who was admitted through the emergency department earlier today with diagnosis of a left intertrochanteric hip fracture. The patient reportedly had fallen at home when she got up to let out her dog. She noted that her left knee buckled and she fell onto the left side hitting both her knee and hip against the concrete. Primarily, at the time of admission she complained of left knee pain. Imaging studies obtained of the hip demonstrated a comminuted intratrochanteric hip fracture with significant displacement and angulation. Later in the day, the patient did have a knee x- ray, at approximately 3 PM, which demonstrated a distal pole patella fracture which is displaced approximately 1.5 cm. Review of Systems Const: Denies: fever(s), chills, body aches, change in appetite, fatigue or malaise Eyes: Denies: change in vision or photophobia ENMT: Denies: throat pain, enlarged tonsils, ear or mastoid pain, nasal discharge or nasal congestion Card: Denies: chest pain or lightheadedness Resp: Denies: dyspnea, productive cough or non-productive cough GI: Denies: abdominal pain, nausea or vomiting : Denies: flank pain, dysuria, urinary frequency, urinary urgency or hematuria Musc: Reports: joint pain and muscle weakness; Denies: neck pain Skin/Breast: Denies: rash or pruritus Neuro: Reports: confusion; Denies: headache(s), numbness in extremities, difficulty walking or vertigo Psych: Denies: anxiety Endo: Denies: polyuria All/Imm: Denies: acute wheezing Medications/Allergies Home Medications Medication Instructions Recorded Confirmed Last Taken Type aspirin 81 mg tablet,delayed 81 mg PO DAILY 06/29/19 05/01/22 10/08/21 History release (Adult Low Dose Aspirin) blood sugar diagnostic (Contour See Rx Instructions .Route 05/12/20 05/01/22 Unknown Rx Next Test Strips) .COMPLEX #100 strips gabapentin 100 mg capsule 100 mg PO BID 01/05/21 05/01/22 10/08/21 History nitroglycerin 0.4 mg sublingual 0.4 mg sublingual Q5M PRN chest 06/26/21 05/01/22 Unknown Rx tablet (Nitrostat) pain #25 tabs vitamins A,C,G-kcst-ltntht 2,148 1 tab PO BID 06/26/21 05/01/22 10/08/21 History mcg-113 mg-45 mg-17.4 mg tablet (PreserVision AREDS) pen needle, diabetic 32 gauge x #100 ea 08/07/21 05/01/22 Unknown Rx (TechLITE Pen Needle) budesonide 32 mcg/actuation nasal 1 spray intranasal DAILY #8.43 mL 08/28/21 05/01/22 Unknown Rx spray (Rhinocort Allergy) allopurinol 100 mg tablet 200 mg PO DAILY 10/08/21 05/01/22 10/08/21 History duloxetine 60 mg capsule,delayed 60 mg PO DAILY 10/08/21 05/01/22 10/08/21 History release levothyroxine 75 mcg tablet 75 mcg PO DAILY 10/08/21 05/01/22 10/08/21 History metformin 500 mg tablet,extended 500 mg PO BID 10/08/21 05/01/22 10/08/21 History release 24 hr omeprazole 40 mg capsule,delayed 40 mg PO DAILY 10/08/21 05/01/22 10/08/21 History release lisinopril 10 mg tablet 20 mg PO DAILY #0 tabs 10/12/21 05/01/22 10/08/21 Rx Wheeled Walker with Seat #1 ea 10/25/21 05/01/22 Unknown Rx metoprolol tartrate 25 mg tablet See Rx Instructions .Route 11/20/21 05/01/22 Unknown Rx .COMPLEX #180 tabs prasugrel 10 mg tablet 10 mg PO DAILY 12/07/21 05/01/22 Unknown History amlodipine 5 mg tablet 5 mg PO DAILY 01/29/22 05/01/22 Unknown History potassium chloride 8 mEq 8 meq PO DAILY 01/29/22 05/01/22 Unknown History capsule,extended release galantamine 8 mg 24 hr 8 mg PO BID 90 days #180 caps 05/01/22 05/01/22 Unknown Rx capsule,extended release sitagliptin 100 mg tablet (Januvia) 100 mg PO DAILY 90 days #90 tabs 05/01/22 05/01/22 Unknown Rx insulin detemir U-100 100 unit/mL See Rx Instructions .Route 05/09/22 Unknown Rx (3 mL) subcutaneous pen (Levemir .COMPLEX #30 mL FlexTouch U-100 Insulin) Allergies Allergy/AdvReac Type Severity Reaction Status Date / Time azithromycin [From Zithromax] Allergy Mild rash Verified 05/01/22 13:38 Quinidine-Quinine Analogues Allergy Mild rash Verified 05/01/22 13:38 ([facility] Current Medications Generic Name Dose Route Start Last Admin Trade Name Freq PRN Reason Stop Dose Admin Enoxaparin Sodium 40 mg 05/26/22 14:00 05/26/22 15:23 Enoxaparin 40 Mg/0.4 Ml Syringe SUBCUT Not Given Q24H ADAMARIS Gabapentin 100 mg 05/26/22 18:00 05/26/22 18:26 Gabapentin 100 Mg Capsule PO 100 mg BID ADAMARIS Administration Sodium Chloride 1,000 mls @ 100 mls/hr 05/26/22 13:15 05/26/22 14:10 Sodium Chloride 0.9% IV 100 mls/hr .Q10H ADAMARIS Administration Ceftriaxone Sodium 1,000 mg/ 50 mls @ 100 mls/hr 05/26/22 14:00 05/26/22 15:09 Sodium Chloride IV Infused Q24H ADAMARIS Infusion Protocol Insulin Human Lispro 0 unit 05/26/22 18:00 05/26/22 18:26 Insulin Lispro 100 Unit/1 Ml SUBCUT 4 unit WM&BEDTIME ADAMARIS Administration Protocol Metoprolol Tartrate 25 mg 05/26/22 18:00 05/26/22 18:24 Metoprolol Tartrate 25 Mg Tablet PO 25 mg BID ADAMARIS Administration Morphine Sulfate 2 mg 05/26/22 13:15 05/26/22 19:23 Morphine 4 Mg/Ml Sdv 1 Ml IVP 2 mg Q4H PRN Administration SEVERE PAIN Non-Formulary Medication 8 mg 05/26/22 18:00 05/26/22 18:47 Galantamine PO Not Given BID ADAMARIS Pantoprazole Sodium 40 mg 05/26/22 13:15 05/26/22 14:08 Pantoprazole 40 Mg Sdv IVP 40 mg Q24H ADAMARIS Administration PFSH Acute PFSH: Medical History ASHD (arteriosclerotic heart disease) Chest pain Diabetes Dyslipidemia Essential hypertension History of CVA (cerebrovascular accident) Hypothyroidism Surgical History (Updated 05/26/22 @ 08:40 by George Zurita DO) S/P angioplasty with stent S/P cataract extraction S/P cholecystectomy S/P hysterectomy Family History Father Diabetes CAD (coronary artery disease) Mother Cancer COLON Other Hyperlipidemia Hypertension Social History Smoking and tobacco status: never smoked Alcohol intake: never Household members: spouse Marital status: Current occupational status: retired Dietary Habits: Current diet type/program: regular Caffeine: Yes Exercise: What type of physical activity do you participate in?: walking Safety: Seatbelt use: always Home Safety: Working smoke detector in home: Yes Fire extinguisher in home: Yes Vitals/I&O/Wt Last Vital Signs Temp 99.8 F H 05/26/22 19:26 Pulse 108 H 05/26/22 19:26 Resp 18 05/26/22 19:26 BP 160/80 05/26/22 19:26 Pulse Ox 98 05/26/22 19:26 O2 Del Method 05/26/22 19:26 O2 Flow Rate 2 05/26/22 19:26 05/26/22 05/26/22 05/26/22 06:59 14:59 22:59 Intake Total 290 / 290 Balance 290 / 290 Weight last 48 hrs Weight 145 lb Physical Exam Const: COMMON NORMALS: no acute distress, patient oriented x3 and alert GENERAL APPEARANCE: cooperative and comfortable NUTRITIONAL APPEARANCE: overweight ORIENTATION/CONSCIOUSNESS: Yes awake HENMT: COMMON NORMALS: normocephalic and atraumatic HEAD & SCALP: normocephalic and atraumatic Eye: GENERAL EYE: appearance normal, both eyes and all related structures Chest: COMMONS NORMALS: normal inspection of the chest Resp: COMMON NORMALS: normal respiratory effort EFFORT & INSPECTION: Yes able to speak in complete sentences and Yes symmetric chest movement Extremity: LEFT LOWER EXTREMITY: Yes hip joint (The extremity is shortened and externally rotated) Left hip: Yes inspection (No significant distal swelling.), Yes palpation (Tenderness), Yes ROM (Tender to any range of motion.) and Yes neurovascular exam (Intact distally) Neuro: COMMON NORMALS: patient oriented x3 SENSORIUM/ORIENTATION: Yes alert Psych: COMMON NORMALS: mental status grossly normal APPEARANCE: Yes grossly normal ATTITUDE: Yes calm and Yes engaged ATTENTION/CONCENTRATION: Yes attention grossly intact Skin: COMMON NORMALS: no rashes or lesions noted GENERAL SKIN EXAM: no rashes or lesions noted Urinary Catheter Management: Vaughn Latex: Cath Placed During This Visit: yes Reason for Continuing Indwelling Catheter: Required Immobilization for Trauma or Surgery or Anesthesia Urinary Catheter Date of Insertion: 05/26/22 Urinary Catheter Time of Insertion: 10:46 Data 05/26/22 10:43 05/26/22 10:43 Xray Ortho: My impression: X-rays were obtained in the emergency department. These images were obtained of the left hip and demonstrated a comminuted angulated intertrochanteric hip fracture with avulsion of the lesser trochanter. No other injuries were noted on the series of x-rays. The patient had imaging studies later in the afternoon, at approximately 3 PM, and this demonstrates a displaced distracted distal pole of the patella fracture with a very small distal pole fragment. Displacement is approximately 1.5 cm. A&P Assessment and plan (1) Closed intertrochanteric fracture of left femur: This 82-year-old woman with known medical history of CVA this spring, diabetes, essential hypertension, dyslipidemia, and hypothyroidism presented through the emergency department today after a fall at home. She got up to let out the dog, and when she let the dog back in, she fell onto her left knee and left hip. Initial imaging studies in the emergency department demonstrated a comminuted displaced angulated intertrochanteric left hip fracture, and the patient was admitted for definitive treatment. Apparently, the patient continued to complain about her knee throughout the day, at approximately 3 PM, x-rays were obtained of the patient's left knee. This demonstrates a distal pole patellar fracture with displacement of the distal pole by approximately 1.5 cm. After discussion with the patient and her , we have elected to proceed with open reduction internal fixation of her left intertrochanteric hip fracture utilizing the gamma nail. Additionally, she will need to undergo open reduction internal fixation of her left patella fracture with cerclage and [id number] wiring. Qualifiers: Encounter type: initial encounter Fracture alignment: displaced Qualified Code(s): S72.142A - Displaced intertrochanteric fracture of left femur, initial encounter for closed fracture (2) Comminuted fracture of left patella: See above for surgical plan Qualifiers: Encounter type: initial encounter Fracture alignment: displaced Fracture type: closed Qualified Code(s): S82.042A - Displaced comminuted fracture of left patella, initial encounter for closed fracture Consult Attestations Medical Necessity Statement: Acute care for treatment of displaced intertrochanteric hip fracture and displaced patellar fracture. 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 Care Code Acute Customer Assistant for [facility] Fwd Exam Comprehensive Diagnoses Closed intertrochanteric fracture of left femur S72.142A Encounter type: initial encounter Fracture alignment: displaced Comminuted fracture of left patella S82.042A Encounter type: initial encounter Fracture alignment: displaced Fracture type: closed
--- NOTE | 2022-05-26 19:41 | CTR_ITS ---
PROCEDURE INFORMATION: Exam: CT Left Lower Extremity Without Contrast, Knee Exam date and time: 05/26/2022 8:51 PM Age: 82 years old Clinical indication: Other: FX; Additional info: Distal pole patella fracture TECHNIQUE: Imaging protocol: CT of the Left lower extremity without contrast was performed. Exam focused on the knee. Radiation optimization: All CT scans at this facility use at least one of these dose optimization techniques: automated exposure control; mA and/or kV adjustment per patient size (includes targeted exams where dose is matched to clinical indication); or iterative reconstruction. COMPARISON: CR (LOW EXM, ) 05/26/2022 2:49 PM RADIATION DOSE METRICS: Total DLP (mGy-cm): 285.58 FINDINGS: Bones/joints: There is a fracture fragment off the inferior patella which may be old. There is also a minimally displaced fracture off the posterior medial tibial plateau as seen on sagittal image 28. There are calcified loose bodies in the lateral compartment of the anterolateral compartment of the left knee and also in the posteromedial knee. There is joint space narrowing and osteophyte formation in the medial compartment of the left knee. There is osteopenia. Soft tissues: There is a suprapatellar and retropatellar effusion. There is soft tissue anasarca. CT/CT knee LT wo con* [id number] IMPRESSION: There is a fracture fragment off the inferior patella which may be old. There is a minimally displaced fracture off the posterior medial tibial plateau which may be acute. If there is desire for further evaluation, a MRI could be performed.
--- NOTE | 2022-05-26 20:49 | PC.NURSE ---
Report given to LEELA Rivas. Patient transfered to ER CT for imaging studies and then to the floor via RN and tech.
--- NOTE | 2022-05-26 21:06 | PC.NURSE ---
Patient is transferred to med/surg room 268 at this time.
[2022-05-26 21:12] LABS: Glucose Point of Care 220 mg/dL (70-110)
[2022-05-26] MEDS: insulin glargine 100 units/1 mL 20 UNIT SUBCUT (21:50)
[2022-05-27] VITALS (21 sets, daily range): BP systolic 104–184; BP diastolic 46–80; PULSE 84–116; RESP 12–18; TEMP 36.4–36.9; O2SAT 90–100
--- NOTE | 2022-05-27 | XR_ITS ---
WS: [id number] Exam: XR hip LT 2-3V wo/w pel* [id number] Date/Time of Exam: 05/27/2022 12:00 AM Reason For Exam: OR PICS-TROCHANTERIC NAIL Comparison 05/26/2022. Intraoperative AP and lateral C-arm images are submitted for evaluation. There is internal orthopedic fixation involving a comminuted intertrochanteric fracture of the left h ip in satisfactory position for healing. A femoral neck screw and intramedullary edith stabilizes a fra cture. There is avulsion and medial separation of the lesser trochanter. XR/XR hip LT 2-3V wo/w pel* [id number] IMPRESSION: 1. Internal orthopedic fixation involving an intertrochanteric fracture of the left hip in satisfactory position for healing.
[2022-05-27] MEDS: morphine 4 mg/mL SDV 1 mL 2 MG IVP ×3 (00:46→11:19)
[2022-05-27 04:07] LABS: Basophils % 0.1 %; Eosinophils # 0.4 10^3/uL (0.0-0.8); Eosinophils % 4.1 %; Hematocrit 31.3 % (37.0-47.0); Hemoglobin 10.3 g/dL (11.5-15.3); Lymphocytes # 2.4 10^3/uL (0.8-4.8); Lymphocytes % 27.6 %; Mean Corpuscular HGB Conc 32.9 g/dL (30.0-36.0); Mean Corpuscular Hemoglobin 30.5 pg (28.0-34.0); Mean Corpuscular Volume 92.6 fl (81-99); Mean Platelet Volume 9.7 fL (7.4-10.4); Monocytes # 0.7 10^3/uL (0.2-0.9); Monocytes % 8.5 %; Neutrophils % 59.6 %; Nucleated Red Blood Cells % 0 %; Platelet Count 180 10^3/cmm (130-400); Red Blood Count 3.38 10^6/uL (4.1-5.3); Red Cell Distribution Width 13.4 % (12.1-15.1); White Blood Count 8.7 10^3/uL (4.0-10.0)
[2022-05-27 04:36] LABS: Anion Gap 13.1 (5-19); Blood Urea Nitrogen 13 mg/dL (8-23); Calcium 8.7 mg/dL (8.5-10.5); Carbon Dioxide 28 mmol/L (22-29); Chloride 101 mmol/L (98-107); Creatinine Clr Calc Pharmacy 59.4398; Glucose 245 mg/dL (65-115); Magnesium 1.4 mg/dL (1.7-2.3); Osmolality Calculated 294 mOsm/kg (285-295); Phosphorus 3.2 mg/dL (2.5-4.5); Potassium 4.1 mmol/L (3.5-5.1); Sodium 138 mmol/L (136-145)
--- NOTE | 2022-05-27 06:17 | ANES.PREANE2 ---
Pre-Anesthetic Assessment Height/Weight: Height 1.5 m Weight 67.132 kg Temp Pulse Resp BP Pulse Ox O2 Del Method O2 Flow Rate 98.1 F 105 H 18 143/79 93 2 05/27/22 04:00 05/27/22 04:00 05/27/22 05:20 05/27/22 04:00 05/27/22 04:00 05/26/22 19:26 05/26/22 22:16 Preop Diagnosis: Left intertrochanteric hip fracture, left distal pole patella fracture Operation Date: 05/27/22 08:40 Proposed Procedures p Trochanteric Femoral Nail(Left) - Kezia Ortega MD Familial anesthetic complications: None Was Beta Timmy taken within 24 hours: N/A Was Clonidine taken within 24 hours: N/A Last intake: > 8hrs Social No alcohol and No tobacco Exam alert, oriented x 3, clear to auscultation bilaterally and regular rate & rhythm Airway Mallampati: Class IV Dentition: false Comments: Comments: small mouth opening, dry mouth CV/HEM Coronary Artery Disease (stent) and Hypertension GI Gastroesophageal Reflux Disease Metabolic Diabetes Mellitus, Hyperlipidemia and Thyroid Disease Neuropsych Cerebrovascular Accident and Dementia Anesthetic Plan ASA status: 3 Anesthesia: General Risk of > 500 ml blood loss (7ml/kg in children): No Medications/Allergies Home Medications Medication Instructions Recorded Confirmed Last Taken Type aspirin 81 mg tablet,delayed 81 mg PO DAILY 06/29/19 05/01/22 10/08/21 History release (Adult Low Dose Aspirin) blood sugar diagnostic (Contour See Rx Instructions .Route 05/12/20 05/01/22 Unknown Rx Next Test Strips) .COMPLEX #100 strips gabapentin 100 mg capsule 100 mg PO BID 01/05/21 05/01/22 10/08/21 History nitroglycerin 0.4 mg sublingual 0.4 mg sublingual Q5M PRN chest 06/26/21 05/01/22 Unknown Rx tablet (Nitrostat) pain #25 tabs vitamins A,C,T-mkvb-vpmvkh 2,148 1 tab PO BID 06/26/21 05/01/22 10/08/21 History mcg-113 mg-45 mg-17.4 mg tablet (PreserVision AREDS) pen needle, diabetic 32 gauge x #100 ea 08/07/21 05/01/22 Unknown Rx (TechLITE Pen Needle) budesonide 32 mcg/actuation nasal 1 spray intranasal DAILY #8.43 mL 08/28/21 05/01/22 Unknown Rx spray (Rhinocort Allergy) allopurinol 100 mg tablet 200 mg PO DAILY 10/08/21 05/01/22 10/08/21 History duloxetine 60 mg capsule,delayed 60 mg PO DAILY 10/08/21 05/01/22 10/08/21 History release levothyroxine 75 mcg tablet 75 mcg PO DAILY 10/08/21 05/01/22 10/08/21 History metformin 500 mg tablet,extended 500 mg PO BID 10/08/21 05/01/22 10/08/21 History release 24 hr omeprazole 40 mg capsule,delayed 40 mg PO DAILY 10/08/21 05/01/22 10/08/21 History release lisinopril 10 mg tablet 20 mg PO DAILY #0 tabs 10/12/21 05/01/22 10/08/21 Rx Wheeled Walker with Seat #1 ea 10/25/21 05/01/22 Unknown Rx metoprolol tartrate 25 mg tablet See Rx Instructions .Route 11/20/21 05/01/22 Unknown Rx .COMPLEX #180 tabs prasugrel 10 mg tablet 10 mg PO DAILY 12/07/21 05/01/22 Unknown History amlodipine 5 mg tablet 5 mg PO DAILY 01/29/22 05/01/22 Unknown History potassium chloride 8 mEq 8 meq PO DAILY 01/29/22 05/01/22 Unknown History capsule,extended release galantamine 8 mg 24 hr 8 mg PO BID 90 days #180 caps 05/01/22 05/01/22 Unknown Rx capsule,extended release sitagliptin 100 mg tablet (Januvia) 100 mg PO DAILY 90 days #90 tabs 05/01/22 05/01/22 Unknown Rx insulin detemir U-100 100 unit/mL See Rx Instructions .Route 05/09/22 Unknown Rx (3 mL) subcutaneous pen (Levemir .COMPLEX #30 mL FlexTouch U-100 Insulin) Allergies Allergy/AdvReac Type Severity Reaction Status Date / Time azithromycin [From Zithromax] Allergy Mild rash Verified 05/01/22 13:38 Quinidine-Quinine Analogues Allergy Mild rash Verified 05/01/22 13:38 (Cincho Current Medications Generic Name Dose Route Start Last Admin Trade Name Freq PRN Reason Stop Dose Admin Enoxaparin Sodium 40 mg 05/26/22 14:00 05/26/22 15:23 Enoxaparin 40 Mg/0.4 Ml Syringe SUBCUT Not Given Q24H ADAMARIS Gabapentin 100 mg 05/26/22 18:00 05/26/22 18:26 Gabapentin 100 Mg Capsule PO 100 mg BID ADAMARIS Administration Sodium Chloride 1,000 mls @ 100 mls/hr 05/26/22 13:15 05/26/22 23:27 Sodium Chloride 0.9% IV 100 mls/hr .Q10H ADAMARIS Administration Ceftriaxone Sodium 1,000 mg/ 50 mls @ 100 mls/hr 05/26/22 14:00 05/26/22 15:09 Sodium Chloride IV Infused Q24H ADAMARIS Infusion Protocol Insulin Glargine 20 unit 05/26/22 21:00 05/26/22 21:50 Insulin Glargine 100 Units/1 Ml SUBCUT 20 unit BEDTIME ADAMARIS Administration Insulin Human Lispro 0 unit 05/26/22 18:00 05/26/22 21:50 Insulin Lispro 100 Unit/1 Ml SUBCUT 6 unit WM&BEDTIME ADAMARIS Administration Protocol Metoprolol Tartrate 25 mg 05/26/22 18:00 05/26/22 18:24 Metoprolol Tartrate 25 Mg Tablet PO 25 mg BID ADAMARIS Administration Morphine Sulfate 2 mg 05/26/22 13:15 05/27/22 05:20 Morphine 4 Mg/Ml Sdv 1 Ml IVP 2 mg Q4H PRN Administration SEVERE PAIN Non-Formulary Medication 8 mg 05/26/22 18:00 05/26/22 18:47 Galantamine PO Not Given BID [facility] Pantoprazole Sodium 40 mg 05/26/22 13:15 05/26/22 14:08 Pantoprazole 40 Mg Sdv IVP 40 mg Q24H ADAMARIS Administration PFSH Anesthesia Medical History ASHD (arteriosclerotic heart disease) Chest pain Diabetes Dyslipidemia Essential hypertension History of CVA (cerebrovascular accident) Hypothyroidism Surgical History (Updated 05/26/22 @ 08:40 by George Zurita DO) S/P angioplasty with stent S/P cataract extraction S/P cholecystectomy S/P hysterectomy Family History Father Diabetes CAD (coronary artery disease) Mother Cancer COLON Other Hyperlipidemia Hypertension Social History Smoking and tobacco status: never smoked Alcohol intake: never Household members: spouse Marital status: Current occupational status: retired Data Anesthesia 05/27/22 03:20 05/27/22 03:20 Short CBC 05/26/22 05/27/22 Range/Units 10:43 03:20 WBC 15.7 H 8.7 (4.0-10.0) 10^3/uL Hgb 11.9 10.3 L (11.5-15.3) g/dL Hct 36.3 L 31.3 L (37.0-47.0) % MCV 92.1 92.6 (81-99) fl Plt Count 246 180 (130-400) 10^3/cmm Neut % (Auto) 78.6 59.6 % Neut # (Auto) 12.31 H 5.20 (1.8-7.7) 10^3/uL BMP 05/26/22 05/27/22 10:43 03:20 Sodium 139 138 Potassium 4.1 4.1 Chloride 101 101 Carbon Dioxide 25 28 BUN 18 13 Creatinine 0.9 0.7 Glucose 276 H 245 H Calcium 9.4 8.7 Cardiac Enzymes 05/26/22 05/26/22 05/26/22 Range/Units 10:43 10:43 12:15 Troponin T Baseline 10 (0-10) ng/L Troponin T 120 Minute 8.76 (0-10) ng/L Delta Troponin T -2.24 L (0-10) ABS# Troponin T Hi Sens 6Hr (0-10) ng/L Troponin T Hi Sens 6Hr Delta (0-12) ng/L NT-Pro-B Natriuret Pep 150 (0-450) pg/mL 05/26/22 05/26/22 Range/Units 12:15 16:16 Troponin T Baseline (0-10) ng/L Troponin T 120 Minute (0-10) ng/L Delta Troponin T (0-10) ABS# Troponin T Hi Sens 6Hr 10.08 H (0-10) ng/L Troponin T Hi Sens 6Hr Delta 0.08 (0-12) ng/L NT-Pro-B Natriuret Pep 150 (0-450) pg/mL Liver Function 05/26/22 Range/Units 10:43 Total Bilirubin 0.4 (0.15-1.2) mg/dL AST 31 (0-32) U/L ALT 26 (0-33) U/L Alkaline Phosphatase 82 (35-105) U/L Albumin 3.9 (3.5-5.2) g/dL Urine 05/26/22 Range/Units 10:40 Urine Color Yellow (Yellow) Urine Appearance Hazy A (CLEAR) Urine pH 5 (5-7) Ur Specific [place] 1.020 (1.005-1.030) Urine Protein Trace (Negative) Urine Glucose (UA) Norm (Normal) Urine Ketones 1+ H (Negative) Urine Nitrate Negative (Negative) Urine Bilirubin Neg (Negative) Ur Leukocyte Esterase 2+ H (Negative) Urine RBC 0-4 H (0-2) /hpf Urine WBC 40-55 H (0-5) /hpf Coags 05/26/22 10:43 PT 14.80 INR 1.13 APTT 25.1 Cardiac Studies: Echocardiogram 10/08/21
[2022-05-27 06:43] LABS: Glucose Point of Care 257 mg/dL (70-110)
--- NOTE | 2022-05-27 08:28 | PC.NURSE ---
Attempted to call patient's at Dr. Ortega's request so she can ask him to come and speak to her. Left a voicemail as no one answered.
--- NOTE | 2022-05-27 08:30 | PC.NURSE ---
Attempted to kenneth patient's son at this time for Dr. Ortega. No answer Voicemail left to return a call to this nurse.
[2022-05-27] MEDS: magnesium sulfate premix 2 GM/50 ML PIGGYBACK IV (09:15)
[2022-05-27] MEDS: levothyroxine 75 mcg Tablet PO (09:15)
[2022-05-27] MEDS: sodium chloride 0.9% 1,000 ML 100 ML IV (11:25)
[2022-05-27 11:31] LABS: Glucose Point of Care 245 mg/dL (70-110)
--- NOTE | 2022-05-27 12:00 | PC.NURSE ---
Pt to OR with OR staff
--- NOTE | 2022-05-27 12:17 | PM.MISC ---
Miscellaneous Note Purpose of Documentation: Change in surgical procedure Note: After reviewing the patient's knee imaging studies as well as her CT which was obtained subsequently, there is question as to the age of her patellar fracture. It is obvious on plain films that there is or has been a fracture of the patella with displacement of the distal pole. CT scan demonstrated hematoma within the knee joint, but the distal fragment as well as the distal end of the intact patella appear as though this may be an old fracture. On physical examination, a defect can be palpated in the bone. There is no tenderness to palpation in this area. There is no tenderness with movement of the patella. There is some ecchymosis anteriorly on the knee where the patient struck the cement, but this is more medial. The notes that the patient has had pain in this knee for a while, and we discussed further work-up once she has healed from her hip fracture. Given her current physical examination and discussion with her , we have elected to not address the patella at this point in time. She will need an MRI for further evaluation of her knee to determine appropriate long-term care. Questions were answered with the and new consents are signed for open reduction internal fixation of the hip isolated.
[2022-05-27] MEDS: acetaminophen 1,000 MG/100 ML PIGGYBACK 400 MG IV (12:22)
[2022-05-27] MEDS: ceFAZolin 2,000 MG in sodium chloride 0.9% (plus) 50 ML 100 MG IV ×2 (12:55→19:59)
--- NOTE | 2022-05-27 13:02 | PM.PN ---
Subjective Subjective: Patient was seen this morning, she is awaiting her surgery, she was also found to have a left knee fracture on x-ray, had a follow-up knee CT scan that shows possible new versus old fracture, she continues to have left knee pain, left hip pain, she is surprised to learn that she has a UTI Vitals/I&O/Wt Last Vital Signs Temp 98.4 F 05/27/22 12:03 Pulse 95 05/27/22 12:03 Resp 14 05/27/22 12:03 BP 152/80 05/27/22 12:03 Pulse Ox 100 05/27/22 12:03 O2 Del Method 05/27/22 12:03 O2 Flow Rate 10 05/27/22 12:03 05/26/22 05/27/22 05/27/22 22:59 06:59 14:59 Intake Total 410 / 410 928.333 / 6931.771 7812 / 1000 Output Total 1250 / 1250 Balance 410 / 410 -321.667 / 88.333 1000 / 1000 Weight last 48 hrs Weight 67.132 kg Weight 65.771 kg Physical Exam Const: COMMON NORMALS: no acute distress and patient oriented x3 Resp: COMMON NORMALS: normal respiratory effort, No retractions, No use of accessory muscles and clear to auscultation bilaterally AUSCULTATION: clear to auscultation bilaterally Cardio: COMMON NORMALS: regular rate, regular rhythm, S1 normal heart sound present and S2 normal heart sound present RATE: regular rate RHYTHM: regular rhythm HEART SOUNDS: S1 normal heart sound present and S2 normal heart sound present GI: COMMON NORMALS: Normal to inspection, nondistended, normoactive bowel sounds present and non-tender Extremity: COMMON NORMALS: no pedal edema Neuro: COMMON NORMALS: patient oriented x3 Psych: COMMON NORMALS: mental status grossly normal Urinary Catheter Management: Vaughn Latex: Cath Placed During This Visit: yes Reason for Continuing Indwelling Catheter: Required Immobilization for Trauma or Surgery or Anesthesia Urinary Catheter Date of Insertion: 05/26/22 Urinary Catheter Time of Insertion: 10:46 Data 05/27/22 03:20 05/27/22 03:20 Micro: Microbiology 05/26/22 10:40 Urine Culture - Preliminary Urine,Clean Catch A&P Assessment and plan (1) Closed intertrochanteric fracture of left femur: Qualifiers: Encounter type: initial encounter Fracture alignment: displaced Qualified Code(s): S72.142A - Displaced intertrochanteric fracture of left femur, initial encounter for closed fracture (2) History of CVA (cerebrovascular accident): (3) Alzheimer disease: (4) ASHD (arteriosclerotic heart disease): (5) Dyslipidemia: (6) Diabetes: (7) Essential hypertension: (8) UTI (urinary tract infection): (9) Comminuted fracture of left patella: Qualifiers: Encounter type: initial encounter Fracture type: closed Fracture alignment: displaced Qualified Code(s): S82.042A - Displaced comminuted fracture of left patella, initial encounter for closed fracture (10) Hypomagnesemia: Plan Left hip fracture -Pain control morphine 2 mg every 4 hours -Lovenox for DVT prophylaxis -Is on aspirin 81 mg -PT OT -Orthopedic service consulted for surgical invention today -Full code -Lovenox for DVT prophylaxis left patellar fracture -There is a fracture fragment off the inferior patella which may be old. There is a minimally displaced fracture off the posterior medial tibial plateau which may be acute. If there is desire for further evaluation, a MRI could be performed. -We will undergo left knee MRI History of CVA continue aspirin -Patient was placed on parasugrel for history of cardiac stenting remotely in the past, she is allergic to Plavix -She has a history of cardiac stenting, but this was quite remote -We will resume parasugrel after sugery, continue aspirin for now History of CAD, remote history, intolerance to Plavix, on Effient and aspirin, Effient held for surgery, continue aspirin, resume Effient after surgery Alzheimer's disease, is on galantamine Hypertension continue amlodipine, lisinopril Type 2 diabetes mellitus, moderate dose sliding scale, Lantus 20 units at bedtime Hypomagnesemia, will replace UTI, continue Rocephin Attestations Medical Necessity Statement*: Patient requires hospitalization for left hip fracture, left patellar fracture, UTI, will undergo surgical intervention today, PT OT after surgery 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 Care Code 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
[2022-05-27] MEDS: ceFAZolin 1,000 mg SDV 1000 MG IRRIGATION (13:25)
[2022-05-27] MEDS: nystatin powder 15 gm Btl 1 APPLIC TOPICAL (14:03)
--- NOTE | 2022-05-27 14:28 | PM.OP ---
Operative Report Date of procedure: May 27, 2022 Pre-op diagnosis: Left intertrochanteric hip fracture with subtrochanteric extension, remote left distal pole patella fracture Post-op diagnosis: Left intertrochanteric hip fracture with subtrochanteric extension, remote left distal pole patella fracture Post-op findings: Comminuted displaced angulated left intertrochanteric hip fracture Procedure done: Open reduction internal fixation left intertrochanteric hip fracture with gamma nail, short Implants: The [place] gamma 3 trochanteric nail, right, 11 mm x 180 mm x 125 degrees, a lag screw size 10.5 mm x 90 mm, and a distal fully threaded locking screws size 5 mm x 32.5 mm Pathology: none sent Surgeon: Kezia Ortega Engineer Booster And Exhauster: None Anesthesia: General (Per LMA, ASA 3) Estimated blood loss (mL): 100 IV fluids (mL): 500 Urine output (mL): 100 Complications: None Findings: Significant comminution intertrochanteric hip fracture Condition: stable Disposition: PACU (Then return to floor for postoperative rehabilitation and pain management) Brief History: Ivelisse Gardner is a 82 year old female who was admitted through the emergency department with diagnosis of a left intertrochanteric hip fracture.? The patient reportedly had fallen at home when she got up to let out her dog.? She noted that her left knee buckled, and she fell onto the left side hitting both her knee and hip against the concrete.? Primarily, at the time of admission she complained of left knee pain.? Imaging studies obtained of the hip demonstrated a comminuted intratrochanteric hip fracture with significant displacement and angulation.? Later in the day, the patient had a knee x-ray, at approximately 3 PM, which demonstrated a distal pole patella fracture which is displaced approximately 1.5 cm. Follow-up CT suggested that the fracture may be remote. Prior to surgical intervention, the patient was evaluated. She had no pain to palpation over the distal pole of her patella consistent with fracture that is likely remote. Otherwise, physical examination was not able to be accomplished secondary to the patient's hip fracture. She had pain at the hip with attempted straight leg raise or any movement of the leg. Consents were signed and questions were answered. Her was present. Procedure: Patient was brought to the operating theater. After undergoing adequate general anesthesia, per LMA, ASA 3, the patient was transferred to the fracture table, positioned on the table and fluoroscopic guidance obtained throughout the surgical procedure. Prior to the commencement of the surgical procedure, a surgical pause was performed. At the time of the surgical pause, we confirmed the site and side of surgery as well as preoperative surgical markings and appropriate and timely administration of IV antibiotics, Ancef 2 g. Availability of equipment was also confirmed. Fluoroscopy was used to confirm the fracture was appropriately reduced in both AP and lateral planes. An incision was then made slightly above the greater trochanter to allow access to the greater trochanter. An awl was used to enter the greater trochanter and a guidewire was subsequently placed. Once the guidewire was confirmed to be in appropriate position in AP and lateral planes, reaming was accomplished over this to allow for the proximal diameter of the nail.? Guidewire was then removed, and a long intramedullary guidewire was placed with care being made to confirm it was intramedullary in both AP and lateral planes. Reaming was then accomplished over this guidewire as the size 11 nail would not pass into the patient's small canal.? An 11 mm nail was felt to be the appropriate nail after the reaming process, so we reamed to a size 13 to allow passage of the nail. An 11 mm x 180 mm x 125 degree gamma 3 trochanteric nail was placed into appropriate position with positioning being confirmed in AP and lateral planes on the x-ray. It passed without difficulty after reaming. Guidewire was then passed through the jigging system into the femoral head. We wanted to be center or slightly inferior and posterior to center. Guidewire was placed into appropriate position. Once the guidewire was in appropriate position, this position was confirmed by x-ray.? The guidewire was then measured and we chose a 90 mm lag screw.? We reamed to allow for the lag screw to be placed.? The 100 mm lag screw was then passed into the femoral head through the trochanteric nail. This was passed uneventfully and again position was confirmed in AP and lateral planes. Compression was obtained under fluoroscopic guidance.? The set screw was then placed in position, tightened completely, and subsequently backed off one-eighth turn. The construct was left in position and attention was directed distally. The jig was further used to place the distal locking screw through the standard gamma 3 trochanteric nail. This was drilled and the length of screw was measured off the drill.? Attention was then directed to closure. The hip was copiously irrigated with normal saline with antibiotics. Following this it was dried and closed. Tensor fascia bryce was closed proximally with 0 Vicryl in an interrupted fashion. Subcutaneous tissues were closed with 2-0 Monocryl, and the skin was closed with skin tom. This was then covered with Dermabond Prineo and OpSite. The patient was removed from the fracture table and returned to recovery in satisfactory condition. The patient will be discharged to the floor for postoperative rehabilitation and pain management. There were no specimens obtained. Related Problem List Diagnoses (1) Closed intertrochanteric fracture of left femur:
--- NOTE | 2022-05-27 14:43 | PC.NURSE ---
report received from OR ETA 10 - 20 minutes
--- NOTE | 2022-05-27 14:55 | PC.NURSE ---
Back back from PACU
[2022-05-27 17:04] LABS: Glucose Point of Care 293 mg/dL (70-110)
--- NOTE | 2022-05-27 17:21 | ANE.PACU2 ---
Inpatient post-anesthesia follow up: Airway intact: Yes Vital signs: Temperature 98.3 F Pulse Rate 95 Respiratory Rate 16 Blood Pressure 125/78 Pulse Oximetry 96 Oxygen Delivery Me thod Nasal Cannula Oxygen Flow Rate 1 Fraction of Inspir ed Oxygen Hydration adequate: Yes Nausea and vomiting: No Pain level: 1 Mental status: Baseline
[2022-05-27] MEDS: metoprolol tartrate 25 mg Tablet PO (17:47)
[2022-05-27] MEDS: gabapentin 100 mg Capsule PO (17:47)
[2022-05-27] MEDS: sennosides-docusate Tablet 2 TAB PO (17:47)
[2022-05-27] MEDS: oxyCODONE 5 mg IR Tab/Cap PO (17:47)
[2022-05-27] MEDS: insulin lispro 100 unit/1 mL SUBCUT ×2 (17:49→21:13)
[2022-05-27] MEDS: prasugrel 10 MG Tablet PO (19:59)
[2022-05-27 21:12] LABS: Glucose Point of Care 215 mg/dL (70-110)
[2022-05-27] MEDS: insulin glargine 100 units/1 mL 20 UNIT SUBCUT (21:13)
[2022-05-28] VITALS (12 sets, daily range): BP systolic 91–121; BP diastolic 56–69; PULSE 74–108; RESP 16–18; TEMP 36.4–36.9; O2SAT 92–97
[2022-05-28] MEDS: oxyCODONE 5 mg IR Tab/Cap PO ×4 (00:16→19:17)
[2022-05-28] MEDS: ceFAZolin 2,000 MG in sodium chloride 0.9% (plus) 50 ML 100 MG IV ×2 (04:00→14:38)
[2022-05-28 04:18] LABS: Basophils % 0.2 %; Eosinophils # 0.4 10^3/uL (0.0-0.8); Eosinophils % 3.6 %; Hematocrit 24.1 % (37.0-47.0); Hemoglobin 7.5 g/dL (11.5-15.3); Lymphocytes # 2.8 10^3/uL (0.8-4.8); Lymphocytes % 26.7 %; Mean Corpuscular HGB Conc 31.1 g/dL (30.0-36.0); Mean Corpuscular Hemoglobin 29.9 pg (28.0-34.0); Mean Platelet Volume 9.5 fL (7.4-10.4); Monocytes # 0.8 10^3/uL (0.2-0.9); Monocytes % 7.7 %; Neutrophils # 6.45 10^3/uL (1.8-7.7); Neutrophils % 61.4 %; Nucleated Red Blood Cells % 0 %; Platelet Count 179 10^3/cmm (130-400); Red Blood Count 2.51 10^6/uL (4.1-5.3); Red Cell Distribution Width 13.3 % (12.1-15.1); White Blood Count 10.5 10^3/uL (4.0-10.0)
[2022-05-28 04:54] LABS: Anion Gap 12.6 (5-19); Blood Urea Nitrogen 16 mg/dL (8-23); Calcium 8.4 mg/dL (8.5-10.5); Carbon Dioxide 27 mmol/L (22-29); Chloride 105 mmol/L (98-107); Creatinine Clr Calc Pharmacy 52.8354; Glucose 172 mg/dL (65-115); Magnesium 1.8 mg/dL (1.7-2.3); Osmolality Calculated 295 mOsm/kg (285-295); Potassium 4.6 mmol/L (3.5-5.1); Sodium 140 mmol/L (136-145)
[2022-05-28 06:24] LABS: Glucose Point of Care 203 mg/dL (70-110)
[2022-05-28] MEDS: insulin lispro 100 unit/1 mL SUBCUT ×4 (08:57→21:19)
[2022-05-28] MEDS: aspirin 325 mg EC Tablet PO (11:13)
[2022-05-28] MEDS: CELEcoxib 200 mg Capsule PO (11:14)
[2022-05-28] MEDS: lisinopril 10 mg Tablet 20 MG PO (11:16)
[2022-05-28] MEDS: duloxetine 60 mg Capsule PO (11:17)
[2022-05-28] MEDS: sennosides-docusate Tablet 2 TAB PO ×2 (11:17→18:28)
[2022-05-28] MEDS: allopurinol 100 mg Tablet 200 MG PO (11:18)
[2022-05-28] MEDS: gabapentin 100 mg Capsule PO ×2 (11:18→18:28)
[2022-05-28] MEDS: metoprolol tartrate 25 mg Tablet PO ×2 (11:19→18:28)
[2022-05-28] MEDS: amlodipine 5 mg Tablet PO (11:20)
[2022-05-28] MEDS: levothyroxine 75 mcg Tablet PO (11:22)
[2022-05-28 11:31] LABS: Glucose Point of Care 226 mg/dL (70-110)
--- NOTE | 2022-05-28 12:16 | PC.NURSE ---
Patient taking 325 mg of Asprin. Cancel per Dr. Marquez
--- NOTE | 2022-05-28 12:17 | PC.CHAP ---
Pastoral Care Encounter/Spiritual Assessment Type of Contact [] Declined roof technician visit [] Patient/Family/Request visit [] Outpatient visit [] Follow-up visit [] Physician referral [] Code/Alert [sx] Routine visit [] Staff referral [] Actively dying x[] Patient sleeping [] Family support [] [] Out of room [] Palliative care [] [] Receiving care in room [] Pre-surgical visit [] Trauma [] Long length of stay [] ICU visit [] Other: Relational/Emotional Strength [] Patient feels connected with others/family/visitors/staff [] Distress [] Loneliness/isolation [] Abandonment Spirituality of Patient [] Person of [place] [] Attends [employer] [place] [] Believes in Prayer [] Reads Bible or Temple materials [] There are Spiritual issues to be addressed Information Management Specialist Interventions [] Prayer [] Active listening [] Non-anxious presence [] Spiritual/emotional support [] Crisis/trauma care [] Spiritual counseling [] Bereavement support [] Provided bereavement packet [] Provided Bible/devotional materials [] Provided toy/stuffed animal, coloring book to patient or family member [] Provided Communion [] Anointing/[place] [] Salvation [] Completed spiritual assessment [] Other: Impact on Illness or Injury [] Angry [] Fearful [] Anxious [] Often cries [] Exhaustion [] Unable to work [] Unable to attend scientology [] Unable to walk/stand [] Unable to read [] Unable to drive [] Unable to eat/drink [] Unable to sleep [] Unable to be with family [] Patient intubated [] Other: Summary Time spent with patient
--- NOTE | 2022-05-28 13:44 | P.PN_ITS ---
Subjective Subjective: Patient is working with physical therapy following open reduction internal fixation of left intertrochanteric hip fracture. Vitals/I&O/Wt Last Vital Signs Temp 98.1 F 05/28/22 08:00 Pulse 78 05/28/22 08:58 Resp 18 05/28/22 11:14 BP 92/60 05/28/22 08:00 Pulse Ox 97 05/28/22 11:14 O2 Del Method 05/28/22 08:58 O2 Flow Rate 1 05/28/22 08:58 05/27/22 05/28/22 05/28/22 22:59 06:59 14:59 Intake Total 1220 / 2880 50 / 2930 Output Total 500 / 800 Balance 1220 / 2580 -450 / 2130 Weight last 48 hrs Weight 148 lb Weight 145 lb Physical Exam Const: COMMON NORMALS: no acute distress, patient oriented x3 and alert GENERAL APPEARANCE: cooperative and comfortable NUTRITIONAL APPEARANCE: overweight ORIENTATION/CONSCIOUSNESS: Yes awake HENMT: COMMON NORMALS: normocephalic and atraumatic HEAD & SCALP: normocephalic and atraumatic Eye: GENERAL EYE: appearance normal, both eyes and all related structures Chest: COMMONS NORMALS: normal inspection of the chest Resp: COMMON NORMALS: normal respiratory effort EFFORT & INSPECTION: Yes able to speak in complete sentences and Yes symmetric chest movement Extremity: LEFT LOWER EXTREMITY: Yes hip joint (Dressings are dry and intact.) Left hip: Yes inspection (No significant ecchymosis.), Yes palpation (Minimal tenderness to palpation.) and Yes neurovascular exam (Intact distally with no evidence of DVT.) Neuro: COMMON NORMALS: patient oriented x3 SENSORIUM/ORIENTATION: Yes alert Psych: COMMON NORMALS: mental status grossly normal APPEARANCE: Yes grossly normal ATTITUDE: Yes calm and Yes engaged ATTENTION/CONCENTRATION: Yes attention grossly intact Skin: COMMON NORMALS: no rashes or lesions noted GENERAL SKIN EXAM: no rashes or lesions noted Urinary Catheter Management: Vaughn Latex: Cath Placed During This Visit: yes, but has since been removed by the nurse Reason for Continuing Indwelling Catheter: Perioperative Use in Selected Surgeries Urinary Catheter Date of Insertion: 05/26/22 Urinary Catheter Time of Insertion: 10:46 Date Urinary Catheter Removed: 05/28/22 Time Urinary Catheter Discontinued: 06:29 Data 05/28/22 03:55 05/28/22 03:55 Micro: Microbiology 05/26/22 10:40 Urine Culture - Final Urine,Clean Catch A&P Assessment and plan (1) Closed intertrochanteric fracture of left femur: This 82-year-old woman with known medical history of CVA this spring, diabetes, essential hypertension, dyslipidemia, and hypothyroidism presented through the emergency department today after a fall at home. She got up to let out the dog, and when she let the dog back in, she fell onto her left knee and left hip. Initial imaging studies in the emergency department demonstrated a comminuted displaced angulated intertrochanteric left hip fracture, and the patient was admitted for definitive treatment. Additionally, the patient has a remote patella fracture which causes giving way of her knee. I discussed with the family that we will address this fracture over a longer term when she has proceeded with rehab after her hip fracture. She will continue to work with physical therapy, and she will likely require intermediate at the time of discharge. She is accepted to [facility] and plans are for transfer tomorrow. Qualifiers: Encounter type: initial encounter Fracture alignment: displaced Qualified Code(s): S72.142A - Displaced intertrochanteric fracture of left femur, initial encounter for closed fracture Attestations Medical Necessity Statement*: Ongoing medical comorbidities following open reduction internal fixation left hip fracture. 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 Care Code Acute Mall Plant Caretaker for Fabiola Chauhan Diagnoses Closed intertrochanteric fracture of left femur S72.142A Encounter type: initial encounter Fracture alignment: displaced
[2022-05-28] MEDS: enoxaparin 40 mg/0.4 mL Syringe SUBCUT (14:39)
[2022-05-28] MEDS: pantoprazole 40 mg SDV IVP (14:39)
[2022-05-28] MEDS: cefTRIAXone 1,000 MG in sodium chloride 0.9% (plus) 50 ML 100 MG IV (15:25)
[2022-05-28 16:46] LABS: Glucose Point of Care 226 mg/dL (70-110)
--- NOTE | 2022-05-28 17:55 | PM.PN ---
Subjective Subjective: Patient was seen this morning, pain is better controlled, slightly drowsy. No other acute events. Physical therapy will evaluate patient today. Medications: Medication Review Details: Generic Name Dose Route Start Last Admin Trade Name Tomasz PRN Reason Stop Dose Admin Allopurinol 200 mg 05/27/22 09:00 05/28/22 11:18 Allopurinol 100 Mg Tablet PO 200 mg DAILY ADAMARIS Administration Amlodipine Besylat e 5 mg 05/27/22 09:00 05/28/22 11:20 Amlodipine 5 Mg Tablet PO 5 mg DAILY ADAMARIS Administration Aspirin 325 mg 05/28/22 09:00 05/28/22 11:13 Aspirin 325 Mg E c Tablet PO 325 mg DAILY ADAMARIS Administration Celecoxib 200 mg 05/28/22 09:00 05/28/22 11:14 Celecoxib 200 Mg Capsule PO 200 mg DAILY ADAMARIS Administration Duloxetine HCl 60 mg 05/27/22 09:00 05/28/22 11:17 Duloxetine 60 Mg Capsule PO 60 mg DAILY ADAMARIS Administration Enoxaparin Sodium 40 mg 05/26/22 14:00 05/28/22 14:39 Enoxaparin 40 Mg /0.4 Ml Syringe SUBCUT 40 mg Q24H ADAMARIS Administration Gabapentin 100 mg 05/26/22 18:00 05/28/22 11:18 Gabapentin 100 M g Capsule PO 100 mg BID ADAMARIS Administration Ceftriaxone Sodium 1,000 mg/ 50 mls @ 100 mls/ hr 05/26/22 14:00 05/28/22 15:25 Sodium Chloride IV 100 mls/hr Q24H ADAMARIS Administration Protocol Insulin Glargine 20 unit 05/26/22 21:00 05/27/22 21:13 Insulin Glargine 100 Units/1 Ml SUBCUT 20 unit BEDTIME ADAMARIS Administration Insulin Human Lisp ro 0 unit 05/26/22 18:00 05/28/22 12:28 Insulin Lispro 1 00 Unit/1 Ml SUBCUT 8 unit WM&BEDTIME ADAMARIS Administration Protocol Levothyroxine Sodi um 75 mcg 05/27/22 09:00 05/28/22 11:22 Levothyroxine 75 Mcg Tablet PO 75 mcg DAILY ADAMARIS Administration Lisinopril 20 mg 05/27/22 09:00 05/28/22 11:16 Lisinopril 10 Mg Tablet PO 20 mg DAILY ADAMARIS Administration Metoprolol Tartrat e 25 mg 05/26/22 18:00 05/28/22 11:19 Metoprolol Tartr ate 25 Mg Tablet PO 25 mg BID ADAMARIS Administration Non-Formulary Medi cation 8 mg 05/26/22 18:00 05/28/22 12:18 Galantamine PO Not Given BID [facility] Oxycodone HCl 5 - 10 mg 05/27/22 15:13 05/28/22 11:14 Oxycodone 5 Mg I r Tab/Cap PO 5 mg Q4H PRN Administration MODERATE TO SEVER E PAIN Pantoprazole Sodiu m 40 mg 05/26/22 13:15 05/28/22 14:39 Pantoprazole 40 Mg Sdv IVP 40 mg Q24H ADAMARIS Administration Prasugrel 10 mg 05/27/22 18:00 05/27/22 19:59 Prasugrel 10 Mg Tablet PO 10 mg Q24H ADAMARIS Administration Senna/Docusate Sod ium 2 tab 05/27/22 18:00 05/28/22 11:17 Sennosides-Docus ate Tablet PO 2 tab BID ADAMARIS Administration Vitals/I&O/Wt Last Vital Signs Temp 98.3 F 05/28/22 12:00 Pulse 108 H 05/28/22 12:00 Resp 18 05/28/22 12:00 BP 108/67 05/28/22 12:00 Pulse Ox 97 05/28/22 11:14 O2 Del Method 05/28/22 12:00 O2 Flow Rate 1 05/28/22 08:58 05/28/22 05/28/22 05/28/22 06:59 14:59 22:59 Intake Total 50 / 2930 Output Total 500 / 800 Balance -450 / 2130 Weight last 48 hrs Weight 67.132 kg Physical Exam Resp: COMMON NORMALS: normal respiratory effort, No retractions, No use of accessory muscles and clear to auscultation bilaterally EFFORT & INSPECTION: Yes symmetric chest movement AUSCULTATION: clear to auscultation bilaterally Cardio: COMMON NORMALS: regular rate, regular rhythm, S1 normal heart sound present, S2 normal heart sound present, No gallops present (Cardio), No murmurs present (Cardio), No rub (Cardio) and Peripheral pulses 2+ throughout RATE: regular rate RHYTHM: regular rhythm HEART SOUNDS: S1 normal heart sound present and S2 normal heart sound present PERIPHERAL PULSES: Peripheral pulses 2+ throughout GI: COMMON NORMALS: Normal to inspection, nondistended, normoactive bowel sounds present, Soft to palpation, non-tender, No hepatosplenomegaly present and no masses AUSCULTATION: Yes normoactive bowel sounds PALPATION: Yes Soft to palpation and Yes No hepatosplenomegaly present RECTAL EXAM: deferred Extremity: COMMON NORMALS: no clubbing, cyanosis or edema and no pedal edema Urinary Catheter Management: Vaughn Latex: Cath Placed During This Visit: yes, but has since been removed by the nurse Reason for Continuing Indwelling Catheter: Perioperative Use in Selected Surgeries Urinary Catheter Date of Insertion: 05/26/22 Urinary Catheter Time of Insertion: 10:46 Date Urinary Catheter Removed: 05/28/22 Time Urinary Catheter Discontinued: 06:29 Data 05/28/22 03:55 05/28/22 03:55 Micro: Microbiology 05/26/22 10:40 Urine Culture - Final Urine,Clean Catch A&P Assessment and plan (1) Closed intertrochanteric fracture of left femur: Qualifiers: Encounter type: initial encounter Fracture alignment: displaced Qualified Code(s): S72.142A - Displaced intertrochanteric fracture of left femur, initial encounter for closed fracture (2) History of CVA (cerebrovascular accident): (3) Alzheimer disease: (4) ASHD (arteriosclerotic heart disease): (5) Dyslipidemia: (6) Diabetes: (7) Essential hypertension: (8) UTI (urinary tract infection): (9) Comminuted fracture of left patella: Qualifiers: Encounter type: initial encounter Fracture type: closed Fracture alignment: displaced Qualified Code(s): S82.042A - Displaced comminuted fracture of left patella, initial encounter for closed fracture (10) Hypomagnesemia: Plan Left hip fracture -Pain control morphine 2 mg every 4 hours -Lovenox for DVT prophylaxis -Is on aspirin 81 mg -PT OT -Orthopedic service consulted for surgical invention today -Full code -Lovenox for DVT prophylaxis left patellar fracture -There is a fracture fragment off the inferior patella which may be old. There is a minimally displaced fracture off the posterior medial tibial plateau which may be acute. If there is desire for further evaluation, a MRI could be performed. -We will undergo left knee MRI History of CVA continue aspirin -Patient was placed on parasugrel for history of cardiac stenting remotely in the past, she is allergic to Plavix -She has a history of cardiac stenting, but this was quite remote -We will resume parasugrel after sugery, continue aspirin for now History of CAD, remote history, intolerance to Plavix, on Effient and aspirin, Effient held for surgery, continue aspirin, resume Effient after surgery Alzheimer's disease, is on galantamine Hypertension continue amlodipine, lisinopril Type 2 diabetes mellitus, moderate dose sliding scale, Lantus 20 units at bedtime Hypomagnesemia, will replace UTI, continue Rocephin Attestations Medical Necessity Statement*: Patient needs to be in hospital for management of left hip fracture. 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 Care Code Acute Conservation Agent for margarita Chauhan Diagnoses Closed intertrochanteric fracture of left femur S72.142A Encounter type: initial encounter Fracture alignment: displaced History of CVA (cerebrovascular accident) Z86.73 Alzheimer disease G30.9; F02.80 ASHD (arteriosclerotic heart disease) I25.10 Dyslipidemia E78.5 Diabetes E11.9 Essential hypertension I10 UTI (urinary tract infection) N39.0 Comminuted fracture of left patella S82.042A Encounter type: initial encounter Fracture type: closed Fracture alignment: displaced Hypomagnesemia E83.42
[2022-05-28] MEDS: prasugrel 10 MG Tablet PO (18:28)
[2022-05-28] MEDS: sodium chloride 0.9% 500 ML 999 ML IV (19:16)
--- NOTE | 2022-05-28 19:34 | PC.NURSE ---
notified Dr. Marquez of patient having no urine output today. Bladder scan was [address] Marquez ordered a 500 ml bolus to be given now
[2022-05-28 20:48] LABS: Glucose Point of Care 274 mg/dL (70-110)
[2022-05-28] MEDS: insulin glargine 100 units/1 mL 20 UNIT SUBCUT (21:19)
--- NOTE | 2022-05-28 23:18 | PC.NURSE ---
Dr. Howard notified that patient still had not voided at 2200 bladder scan showed 200ml. Physician ordered to place mederos. 16 Fr med[address] is in place at this time, catheter is patent and draining.
[2022-05-29] VITALS (9 sets, daily range): BP systolic 102–125; BP diastolic 53–74; PULSE 97–117; RESP 16–20; TEMP 36.7–37.1; O2SAT 88–98
[2022-05-29 06:23] LABS: Glucose Point of Care 253 mg/dL (70-110)
[2022-05-29] MEDS: insulin lispro 100 unit/1 mL SUBCUT ×4 (08:06→21:26)
[2022-05-29] MEDS: CELEcoxib 200 mg Capsule PO (08:07)
[2022-05-29 08:54] LABS: Basophils % 0.2 %; Eosinophils # 0.4 10^3/uL (0.0-0.8); Eosinophils % 3.3 %; Lymphocytes # 3.2 10^3/uL (0.8-4.8); Lymphocytes % 25.6 %; Mean Corpuscular HGB Conc 31.8 g/dL (30.0-36.0); Mean Corpuscular Hemoglobin 30.6 pg (28.0-34.0); Mean Corpuscular Volume 96.1 fl (81-99); Mean Platelet Volume 9.5 fL (7.4-10.4); Monocytes % 8.2 %; Neutrophils # 7.72 10^3/uL (1.8-7.7); Neutrophils % 62.3 %; Nucleated Red Blood Cells % 0 %; Platelet Count 226 10^3/cmm (130-400); Red Blood Count 2.29 10^6/uL (4.1-5.3); Red Cell Distribution Width 13.5 % (12.1-15.1); White Blood Count 12.4 10^3/uL (4.0-10.0)
[2022-05-29] MEDS: oxyCODONE 5 mg IR Tab/Cap PO (09:07)
[2022-05-29 09:18] LABS: Anion Gap 16.5 (5-19); Blood Urea Nitrogen 25 mg/dL (8-23); Calcium 9.2 mg/dL (8.5-10.5); Carbon Dioxide 24 mmol/L (22-29); Chloride 108 mmol/L (98-107); Glucose 253 mg/dL (65-115); Osmolality Calculated 311 mOsm/kg (285-295); Potassium 4.5 mmol/L (3.5-5.1); Sodium 144 mmol/L (136-145)
--- NOTE | 2022-05-29 10:41 | PC.NURSE ---
This nurse assumed care of patient this AM, patient resting in bed, REFRIGERATION ENGINEERING TEACHER assisted this nurse to readjust patient to be able to sit up in bed, patient began moaning. Patient not following commands or answering questions. Patient refused to keep eyes open to assess pupils. Patient refused to take medications. Notified physician of patients behavior and called daughter to get a baseline update on patient.
--- NOTE | 2022-05-29 10:43 | PC.OT ---
OT TREATMENT ATTEMPTED. PATIENT SEATED IN CHAIR LEANING TO RIGHT SIGNIFICANTLY. PATIENT REPOSITIONED TO MIDLINE. PATIENT WAS MOANING/SCREAMING AND DOES NOT VERBALIZE/ANSWER QUESTIONS OR MAKE ANY EYE CONTACT AT THIS TIME. DOES NOT ANSWER THERAPIST QUESTIONS REGARDING PAIN OR WHAT MIGHT BE BOTHERING HER. AFTER REPOSITIONING, PATIENT DID APPEAR MORE CALM AND MOANING/SCREAMING STOPPED. PATIENT LEFT IN CARE OF NURSING WITH ALL NEEDS IN REACH.
[2022-05-29 11:15] LABS: Glucose Point of Care 267 mg/dL (70-110)
--- NOTE | 2022-05-29 11:24 | CT_ITS ---
WS: [id number] CT HEAD NONCONTRAST HISTORY: ams TECHNIQUE: Contiguous axial imaging performed through the brain in 2.5 mm imaging. Bone and soft tiss ue windows. Sagittal and coronal reformats reviewed. All CT scans at [facility] use at least one of these dose optimization techniques: automated exposure control; mA and/or kV adjustment per pa tient size (includes targeted exams where dose is matched to clinical indication); or iterative recon struction. DLP: 976.28 mGy.cm COMPARISON: 05/26/2022 No acute intracranial hemorrhage, midline shift or mass effect. Moderate symmetric atrophy. Prior infarct RIGHT periventricular white matter. Bilateral cerebellar at rophy. Ventricles: Normal size with no hydrocephalus. Paranasal sinuses: As visualized are clear. Mastoid air cells: Well pneumatized. Calvarium and scalp: Skull is intact with no soft tissue edema or swelling. CT/CT head wo con* [id number] IMPRESSION: 1. No acute intracranial hemorrhage or edema. 2. Moderate atrophy of the cerebrum and cerebellum. 3. Remote RIGHT periventricular white matter infarct.
--- NOTE | 2022-05-29 12:15 | MRR_ITS ---
PROCEDURE INFORMATION: Exam: MR Head Without Contrast Exam date and time: 05/29/2022 4:11 PM Age: 82 years old Clinical indication: Malaise or fatigue and weakness, extremity; Right; Additional info: Possible stroke TECHNIQUE: Imaging protocol: Magnetic resonance imaging of the head without contrast. COMPARISON: CT head wo con* [id number] 05/29/2022 11:40 AM FINDINGS: Brain: A small area of left frontal periventricular diffusion restriction is present measuring up to about 26 mm on series 7, image 16. Other adjacent minute spotty foci are also present, which show diffusion restriction. On FLAIR the ventricles and parenchyma show moderate atrophy and [id number] chronic cerebral white matter ischemic change. Small old right periventricular CVA measures up to about 11 mm. No focal hemorrhage. A few scattered old very tiny other lacunes are likely. Cerebral ventricles: Negative for acute hydrocephalus. See Brain finding. Bones/joints: Unremarkable. Paranasal sinuses: No suspicious or significant sinus disease is apparent. Mastoid air cells: The visualized mastoid air cells are clear. Orbital cavities: Unremarkable. Vasculature: The central flow voids are maintained. Soft tissues: Unremarkable. MR/MR head wo con* [id number] IMPRESSION: 1. A few small acute ischemic strokes are present in the left frontoparietal periventricular white matter up to 2.6 cm in size. 2. No focal hemorrhage noted. 3. Moderate age-related changes. 4. Old small right CVA.
--- NOTE | 2022-05-29 13:32 | PC.SOCIAL ---
Pg 2 IMM Tried calling pt's & her son to explain IMM. They did not answer. A copy was provided & left on pt's bedside table, for pt's family to review. Will update family when they arrive. Initialed, dated, & timed a copy & placed in chart.
[2022-05-29] MEDS: pantoprazole 40 mg SDV IVP (13:33)
[2022-05-29] MEDS: cefTRIAXone 1,000 MG in sodium chloride 0.9% (plus) 50 ML 100 MG IV (13:34)
[2022-05-29] MEDS: enoxaparin 40 mg/0.4 mL Syringe SUBCUT (13:34)
--- NOTE | 2022-05-29 15:37 | PM.PN ---
Subjective Subjective: Patient was seen and examined this morning, she has been very least responsive since this morning, Unable to take p.o. intake, Medications: Medication Review Details: Generic Name Dose Route Start Last Admin Trade Name Tomasz PRShivam Reason Stop Dose Admin Allopurinol 200 mg 05/27/22 09:00 05/29/22 09:07 Allopurinol 100 Mg Tablet PO Not Given DAILY ADAMARIS Amlodipine Besylat e 5 mg 05/27/22 09:00 05/29/22 09:07 Amlodipine 5 Mg Tablet PO Not Given DAILY ADAMARIS Aspirin 325 mg 05/28/22 09:00 05/29/22 09:07 Aspirin 325 Mg E c Tablet PO Not Given DAILY ADAMAR[facility] Celecoxib 200 mg 05/28/22 09:00 05/29/22 08:07 Celecoxib 200 Mg Capsule PO 200 mg DAILY ADAMARIS Administration Duloxetine HCl 60 mg 05/27/22 09:00 05/29/22 09:07 Duloxetine 60 Mg Capsule PO Not Given DAILY ADAMARIS Enoxaparin Sodium 40 mg 05/26/22 14:00 05/29/22 13:34 Enoxaparin 40 Mg /0.4 Ml Syringe SUBCUT 40 mg Q24H ADAMARIS Administration Gabapentin 100 mg 05/26/22 18:00 05/29/22 09:07 Gabapentin 100 M g Capsule PO Not Given BID ADAMARIS Ceftriaxone Sodium 1,000 mg/ 50 mls @ 100 mls/ hr 05/26/22 14:00 05/29/22 14:14 Sodium Chloride IV Infused Q24H [facility] Infusion Protocol Insulin Glargine 20 unit 05/26/22 21:00 05/28/22 21:19 Insulin Glargine 100 Units/1 Ml SUBCUT 20 unit BEDTIME ADAMARIS Administration Insulin Human Lisp ro 0 unit 05/26/22 18:00 05/29/22 11:51 Insulin Lispro 1 00 Unit/1 Ml SUBCUT 10 unit WM&BEDTIME ADAMARIS Administration Protocol Levothyroxine Sodi um 75 mcg 05/27/22 09:00 05/29/22 09:07 Levothyroxine 75 Mcg Tablet PO Not Given DAILY ADAM[facility] Lisinopril 20 mg 05/27/22 09:00 05/29/22 09:07 Lisinopril 10 Mg Tablet PO Not Given DAILY ADAMARIS Metoprolol Tartrat e 25 mg 05/26/22 18:00 05/29/22 09:07 Metoprolol Tartr ate 25 Mg Tablet PO Not Given BID [facility] Non-Formulary Medi cation 8 mg 05/26/22 18:00 05/29/22 08:07 Galantamine PO Not Given BID [facility] Oxycodone HCl 5 - 10 mg 05/27/22 15:13 05/29/22 09:07 Oxycodone 5 Mg I r Tab/Cap PO 5 mg Q4H PRN Administration MODERATE TO SEVER E PAIN Pantoprazole Sodiu m 40 mg 05/26/22 13:15 05/29/22 13:33 Pantoprazole 40 Mg Sdv IVP 40 mg Q24H [facility] Administration Prasugrel 10 mg 05/27/22 18:00 05/28/22 18:28 Prasugrel 10 Mg Tablet PO 10 mg Q24H ADAM[facility] Administration Senna/Docusate Sod ium 2 tab 05/27/22 18:00 05/29/22 09:07 Sennosides-Docus ate Tablet PO Not Given BID [facility] Vitals/I&O/Wt Last Vital Signs Temp 98.1 F 05/29/22 15:02 Pulse 111 H 05/29/22 15:02 Resp 17 05/29/22 15:02 BP 110/57 05/29/22 15:02 Pulse Ox 98 05/29/22 15:02 O2 Del Method 05/29/22 15:02 O2 Flow Rate 3 05/29/22 15:02 05/29/22 05/29/22 05/29/22 06:59 14:59 22:59 Intake Total 50 / 50 Output Total 300 / 300 Balance -300 / 300 50 / 50 Weight last 48 hrs Weight 73.21 kg Physical Exam Resp: COMMON NORMALS: normal respiratory effort, No retractions, No use of accessory muscles and clear to auscultation bilaterally EFFORT & INSPECTION: Yes symmetric chest movement AUSCULTATION: clear to auscultation bilaterally Cardio: COMMON NORMALS: regular rate, regular rhythm, S1 normal heart sound present, S2 normal heart sound present, No gallops present (Cardio), No murmurs present (Cardio), No rub (Cardio) and Peripheral pulses 2+ throughout RATE: regular rate RHYTHM: regular rhythm HEART SOUNDS: S1 normal heart sound present and S2 normal heart sound present PERIPHERAL PULSES: Peripheral pulses 2+ throughout GI: COMMON NORMALS: Normal to inspection, nondistended, normoactive bowel sounds present, Soft to palpation, non-tender, No hepatosplenomegaly present and no masses AUSCULTATION: Yes normoactive bowel sounds PALPATION: Yes Soft to palpation and Yes No hepatosplenomegaly present RECTAL EXAM: deferred Extremity: COMMON NORMALS: no clubbing, cyanosis or edema and no pedal edema Urinary Catheter Management: Vaughn Latex: Cath Placed During This Visit: yes, but has since been removed by the nurse Reason for Continuing Indwelling Catheter: Acute Urinary Retention or Obstruction Urinary Catheter Date of Insertion: 05/28/22 Urinary Catheter Time of Insertion: 23:18 Date Urinary Catheter Removed: 05/28/22 Time Urinary Catheter Discontinued: 06:29 Data 05/29/22 08:43 05/29/22 08:43 Micro: Microbiology 05/26/22 10:40 Urine Culture - Final Urine,Clean Catch A&P Assessment and plan (1) Closed intertrochanteric fracture of left femur: Qualifiers: Encounter type: initial encounter Fracture alignment: displaced Qualified Code(s): S72.142A - Displaced intertrochanteric fracture of left femur, initial encounter for closed fracture (2) History of CVA (cerebrovascular accident): (3) Alzheimer disease: (4) ASHD (arteriosclerotic heart disease): (5) Dyslipidemia: (6) Diabetes: (7) Essential hypertension: (8) UTI (urinary tract infection): (9) Comminuted fracture of left patella: Qualifiers: Encounter type: initial encounter Fracture alignment: displaced Fracture type: closed Qualified Code(s): S82.042A - Displaced comminuted fracture of left patella, initial encounter for closed fracture (10) Hypomagnesemia: (11) Altered mental status: Plan -Altered mental status: Currently unclear etiology, possibly secondary to recent's surgery, UTI, low clinical suspicion for CVA. Repeat CT head without contrast done this morning: Has not shown any acute intracranial pathology Follow MRI head without contrast ABG: Patient is on aspirin statin Plavix Continue to monitor mentation Neuro check every 4 hours Aspiration precaution Fall precaution Left hip fracture -S post-ORIF -Pain control morphine 2 mg every 4 hours -Lovenox for DVT prophylaxis -Is on aspirin 325 -PT OT -Orthopedic service consulted for surgical invention today -Lovenox for DVT prophylaxis left patellar fracture -There is a fracture fragment off the inferior patella which may be old. There is a minimally displaced fracture off the posterior medial tibial plateau which may be acute. If there is desire for further evaluation, a MRI could be performed. -We will undergo left knee MRI History of CVA continue aspirin -Patient was placed on parasugrel for history of cardiac stenting remotely in the past, she is allergic to Plavix -She has a history of cardiac stenting, but this was quite remote -We will resume parasugrel after sugery, continue aspirin for now History of CAD, remote history, intolerance to Plavix, on Effient and aspirin, Effient held for surgery, continue aspirin, resume Effient after surgery Alzheimer's disease, is on galantamine Hypertension continue amlodipine, lisinopril Type 2 diabetes mellitus, moderate dose sliding scale, Lantus 20 units at bedtime Hypomagnesemia, will replace UTI,: Urine culture is negative: Continue ceftriaxone for now Attestations Medical Necessity Statement*: Patient is to be in hospital for management of altered mental status. Time Spent in Patient Care: Greater than 35 minutes (>than 50% of time spent in counselling and/or direct pt care on unit). 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 Care Code Acute Superintendent Operations Division for g Fwd Exam Expanded Problem Focused Diagnoses Closed intertrochanteric fracture of left femur S72.142A Encounter type: initial encounter Fracture alignment: displaced History of CVA (cerebrovascular accident) Z86.73 Alzheimer disease G30.9; F02.80 ASHD (arteriosclerotic heart disease) I25.10 Dyslipidemia E78.5 Diabetes E11.9 Essential hypertension I10 UTI (urinary tract infection) N39.0 Comminuted fracture of left patella S82.042A Encounter type: initial encounter Fracture alignment: displaced Fracture type: closed Hypomagnesemia E83.42 Altered mental status R41.82
[2022-05-29] MEDS: ketorolac 30 mg/mL INJ 15 MG IVP ×2 (16:59→20:24)
[2022-05-29 17:10] LABS: Glucose Point of Care 197 mg/dL (70-110)
[2022-05-29 17:23] LABS: ABG PCO2 41.9 mmHg (35-45); ABG PH Result 7.42 (7.35-7.45); Alveolar-Arterial Oxygen Gradi 9.8 mmHg (5-10); Arterial Blood Gas Hematocrit 20.7 % (37-47); Base Excess ABG 2.1 mmol/L (-2.0-2.0); Blood Gas Allen Test Pos; Blood Gas Operator Identificat GD; Blood Gas Sample Site Radial, left; Blood Gas Sample Type Arterial; Carboxyhemoglobin 1.2 %THgb (0.4-20.1); HCO3 ABG 26.8 mmol/L (22-26); HGB O2 Sat 93.6 % (95-100); Ionized Calcium Level - ABG 1.3 mmol/L (1.1-1.4); Methemoglobin 0.8 % (0.4-1.5); Oxygen Device NC; Oxygen Saturation ABG 95.6; PO2 ABG 75.1 mmHg (80.0-100.0); Potassium Level - ABG 4.1 mmol/L (3.5-5.0); Total Hemoglobin 6.8 g/dL (12-16)
[2022-05-29] MEDS: sodium chloride 0.9% 1,000 ML 50 ML IV (18:43)
--- NOTE | 2022-05-29 18:52 | PC.NURSE ---
Patient has remained nonverbal during shift, moaning when in pain. RUE/RLE flaccid, continues to not follow commands. Room clean and clutter free with frequent rounding and turns.
[2022-05-29 21:18] LABS: Glucose Point of Care 172 mg/dL (70-110)
[2022-05-29] MEDS: aspirin 300 mg Supp PR (21:26)
[2022-05-29] MEDS: insulin glargine 100 units/1 mL 20 UNIT SUBCUT (21:26)
[2022-05-30] VITALS (21 sets, daily range): BP systolic 95–160; BP diastolic 58–85; PULSE 105–131; RESP 18–26; TEMP 36.9–38.2; O2SAT 86–100
[2022-05-30] MEDS: dilTIAZem 5 mg/mL SDV 5 mL IVP ×2 (01:14→04:26)
[2022-05-30] MEDS: ketorolac 30 mg/mL INJ 15 MG IVP (03:26)
[2022-05-30 05:15] LABS: Basophils % 0.3 %; Eosinophils # 0.2 10^3/uL (0.0-0.8); Eosinophils % 1.5 %; Hematocrit 23.3 % (37.0-47.0); Hemoglobin 7.2 g/dL (11.5-15.3); Lymphocytes # 2.6 10^3/uL (0.8-4.8); Lymphocytes % 19.8 %; Mean Corpuscular HGB Conc 30.9 g/dL (30.0-36.0); Mean Corpuscular Hemoglobin 30.5 pg (28.0-34.0); Mean Corpuscular Volume 98.7 fl (81-99); Mean Platelet Volume 9.3 fL (7.4-10.4); Monocytes # 0.9 10^3/uL (0.2-0.9); Monocytes % 6.7 %; Neutrophils % 71.2 %; Nucleated Red Blood Cells % 0.2 %; Platelet Count 305 10^3/cmm (130-400); Red Blood Count 2.36 10^6/uL (4.1-5.3); Red Cell Distribution Width 13.8 % (12.1-15.1); White Blood Count 13.1 10^3/uL (4.0-10.0)
--- NOTE | 2022-05-30 05:32 | XRR_ITS ---
PROCEDURE INFORMATION: Exam: XR Chest Exam date and time: 05/30/2022 5:39 AM Age: 82 years old Clinical indication: Shortness of breath; Prior surgery; Surgery type: Coronary stent. Gb; Patient HX: Worsening hypoxia; Additional info: Increasing o2 requirement TECHNIQUE: Imaging protocol: Radiologic exam of the chest. Views: 1 view. COMPARISON: CR XR chest 1V [id number] 05/26/2022 8:22 AM FINDINGS: Lungs: Bibasilar consolidation worse on the right versus the left concerning for pneumonia. Interstitial prominence, may be a component of pulmonary edema. Pleural spaces: No large pleural effusions identified. Heart/Mediastinum: The cardiomediastinal silhouette is within normal limits. Coronary stent noted. Bones/joints: Unremarkable. XR/XR chest 1V portable [id number] IMPRESSION: Bibasilar consolidation worse on the right versus the left concerning for pneumonia.
[2022-05-30 05:39] LABS: Alanine Aminotransferase 13 U/L (0-33); Albumin Level 2.5 g/dL (3.5-5.2); Alkaline Phosphatase 79 U/L (35-105); Anion Gap 21.3 (5-19); Aspartate Amino Transferase 48 U/L (0-32); Blood Urea Nitrogen 30 mg/dL (8-23); Calcium 9.3 mg/dL (8.5-10.5); Carbon Dioxide 19 mmol/L (22-29); Chloride 107 mmol/L (98-107); Globulin 3.1 g/dL (1.3-4.6); Glucose 269 mg/dL (65-115); Osmolality Calculated 310 mOsm/kg (285-295); Potassium 5.3 mmol/L (3.5-5.1); Sodium 142 mmol/L (136-145); Total Bilirubin 0.8 mg/dL (0.15-1.2); Total Protein 5.6 g/dL (6.6-8.7)
[2022-05-30] MEDS: digoxin 250 mcg/ml INJ 2 mL 500 MCG IVP (05:46)
[2022-05-30 08:18] LABS: Glucose Point of Care 270 mg/dL (70-110)
[2022-05-30] MEDS: aspirin 300 mg Supp PR (08:20)
[2022-05-30] MEDS: piperacillin-tazobactam 3.375 GM in sodium chloride 0.9% (plus) 50 ML IV ×2 (09:56→16:19)
[2022-05-30] MEDS: morphine 4 mg/mL SDV 1 mL 2 MG IVP ×2 (10:00→14:19)
[2022-05-30] MEDS: insulin lispro 100 unit/1 mL SUBCUT ×4 (10:01→22:47)
[2022-05-30 11:05] LABS: Glucose Point of Care 247 mg/dL (70-110)
[2022-05-30] MEDS: sodium chloride 0.9% (100 ml) 100 ML 20 ML IV (11:16)
--- NOTE | 2022-05-30 11:59 | PC.OT ---
PER NURSING; PATIENT HAS HAD A STROKE AND CONDITION WORSENING TODAY. HOLD OT PER NURSING REQUEST. THERAPY TO BE ATTEMPTED TOMORROW.
[2022-05-30] MEDS: pantoprazole 40 mg SDV IVP (13:17)
[2022-05-30 13:55] LABS: Adenovirus Not Detected (NOT DETECT); Chlamydia Pneumoniae Not Detected (NOT DETECT); Coronavirus 229E,HKU1,NL63,OC4 Not Detected (NOT DETECT); Human Metapneumovirus Not Detected (NOT DETECT); Human Rhinovirus/Enterovirus Not Detected (NOT DETECT); Influenza A Not Detected (NOT DETECT); Influenza A H1 Not Detected (NOT DETECT); Influenza A H1-2009 Not Detected (NOT DETECT); Influenza A H3 Not Detected (NOT DETECT); Influenza B Not Detected (NOT DETECT); Mycoplasma Pneumoniae Not Detected (NOT DETECT); Parainfluenza Virus Type 1 Not Detected (NOT DETECT); Parainfluenza Virus Type 2 Not Detected (NOT DETECT); Parainfluenza Virus Type 3 Not Detected (NOT DETECT); Parainfluenza Virus Type 4 Not Detected (NOT DETECT); Respiratory Syncytial Virus A Not Detected (NOT DETECT); Respiratory Syncytial Virus B Not Detected (NOT DETECT); SARS-COV-2 Not Detected (NOT DETECT)
--- NOTE | 2022-05-30 15:52 | P.PN_ITS ---
Subjective Subjective: Patient was seen and examined this morning,she continue to be least responsive,overnight she went into svt, needing digoxin as well as diltiazem,xray chest done this morning is suggestive of PNA,she is also spiking tempreature, with noted T Max of : 100.7. Abx coverage has been broadened to zosyn. Medications: Medication Review Details: Generic Name Dose Route Start Last Admin Trade Name Freq PRN Reason Stop Dose Admin Allopurinol 200 mg 05/27/22 09:00 05/30/22 08:20 Allopurinol 100 Mg Tablet PO Not Given DAILY ADAMARIS Amlodipine Besylat e 5 mg 05/27/22 09:00 05/29/22 09:07 Amlodipine 5 Mg Tablet PO Not Given DAILY ADAMARIS Aspirin 300 mg 05/29/22 21:00 05/30/22 08:20 Aspirin 300 Mg S upp SD 300 mg DAILY ADAMARIS Administration Atorvastatin Calci um 80 mg 05/30/22 09:00 05/30/22 08:21 Atorvastatin 40 Mg Tablet PO Not Given DAILY ADAMARIS Celecoxib 200 mg 05/28/22 09:00 05/30/22 08:21 Celecoxib 200 Mg Capsule PO Not Given DAILY ADAMARIS Duloxetine HCl 60 mg 05/27/22 09:00 05/30/22 08:21 Duloxetine 60 Mg Capsule PO Not Given DAILY ADAMARIS Enoxaparin Sodium 40 mg 05/26/22 14:00 05/29/22 13:34 Enoxaparin 40 Mg /0.4 Ml Syringe SUBCUT 40 mg Q24H ADAMARIS Administration Gabapentin 100 mg 05/26/22 18:00 05/30/22 08:21 Gabapentin 100 M g Capsule PO Not Given BID ADAMARIS Piperacillin Sod/T azobactam 50 mls @ 12.5 mls /hr 05/30/22 08:30 05/30/22 14:12 Sod 3.375 gm/ So dium Chloride IV Infused Q8H ADAMAR[facility] Infusion Protocol Insulin Glargine 20 unit 05/26/22 21:00 05/29/22 21:26 Insulin Glargine 100 Units/1 Ml SUBCUT 20 unit BEDTIME ADAMARIS Administration Insulin Human Lisp ro 0 unit 05/26/22 18:00 05/30/22 11:48 Insulin Lispro 1 00 Unit/1 Ml SUBCUT 8 unit WM&BEDTIME ADAMARIS Administration Protocol Levothyroxine Sodi um 75 mcg 05/27/22 09:00 05/30/22 08:21 Levothyroxine 75 Mcg Tablet PO Not Given DAILY [facility] Lisinopril 20 mg 05/27/22 09:00 05/29/22 09:07 Lisinopril 10 Mg Tablet PO Not Given DAILY [facility] Metoprolol Tartrat e 25 mg 05/26/22 18:00 05/29/22 16:59 Metoprolol Tartr ate 25 Mg Tablet PO Not Given BID [facility] Morphine Sulfate 2 mg 05/30/22 09:43 05/30/22 14:19 Morphine 4 Mg/Ml Sdv 1 Ml IVP 2 mg Q4H PRN Administration SEVERE PAIN Non-Formulary Medi cation 8 mg 05/26/22 18:00 05/30/22 08:21 Galantamine PO Not Given BID [facility] Oxycodone HCl 5 - 10 mg 05/27/22 15:13 05/29/22 09:07 Oxycodone 5 Mg I r Tab/Cap PO 5 mg Q4H PRN Administration MODERATE TO SEVER E PAIN Pantoprazole Sodiu m 40 mg 05/26/22 13:15 05/30/22 13:17 Pantoprazole 40 Mg Sdv IVP 40 mg Q24H [facility] Administration Senna/Docusate Sod ium 2 tab 05/27/22 18:00 05/30/22 08:21 Sennosides-Docus ate Tablet PO Not Given BID [facility] Ticagrelor 90 mg 05/29/22 18:00 05/30/22 08:22 Ticagrelor 90 Mg Tablet PO Not Given BID [facility] Vitals/I&O/Wt Last Vital Signs Temp 98.7 F 05/30/22 15:33 Pulse 105 H 05/30/22 15:33 Resp 18 05/30/22 15:33 BP 115/72 05/30/22 15:33 Pulse Ox 98 05/30/22 15:33 O2 Del Method 05/30/22 08:00 O2 Flow Rate 9 05/30/22 08:00 05/30/22 05/30/22 05/30/22 06:59 14:59 22:59 Intake Total 553.333 / 603.333 400 / 400 86.667 / 486.667 Output Total 200 / 200 Balance 553.333 / 603.333 400 / 400 -113.333 / 286.667 Weight last 48 hrs Weight 72.529 kg Weight 73.21 kg Physical Exam Resp: COMMON NORMALS: normal respiratory effort, No retractions, No use of accessory muscles and clear to auscultation bilaterally EFFORT & INSPECTION: Yes symmetric chest movement AUSCULTATION: clear to auscultation bilaterally Cardio: COMMON NORMALS: regular rate, regular rhythm, S1 normal heart sound present, S2 normal heart sound present, No gallops present (Cardio), No murmurs present (Cardio), No rub (Cardio) and Peripheral pulses 2+ throughout RATE: regular rate RHYTHM: regular rhythm HEART SOUNDS: S1 normal heart sound present and S2 normal heart sound present PERIPHERAL PULSES: Peripheral pulses 2+ throughout GI: COMMON NORMALS: Normal to inspection, nondistended, normoactive bowel sounds present, Soft to palpation, non-tender, No hepatosplenomegaly present and no masses AUSCULTATION: Yes normoactive bowel sounds PALPATION: Yes Soft to palpation and Yes No hepatosplenomegaly present RECTAL EXAM: deferred Extremity: COMMON NORMALS: no clubbing, cyanosis or edema and no pedal edema Urinary Catheter Management: Vaughn Latex: Cath Placed During This Visit: yes, but has since been removed by the nurse Reason for Continuing Indwelling Catheter: Acute Urinary Retention or Obstruction Urinary Catheter Date of Insertion: 05/28/22 Urinary Catheter Time of Insertion: 23:18 Date Urinary Catheter Removed: 05/28/22 Time Urinary Catheter Discontinued: 06:29 Data 05/30/22 05:04 05/30/22 05:04 Micro: Microbiology 05/30/22 09:06 Blood Culture - Preliminary Blood SPECIMEN COLLECTED 05/30/22 09:02 Blood Culture - Preliminary Blood SPECIMEN COLLECTED A&P Assessment and plan (1) Closed intertrochanteric fracture of left femur: Qualifiers: Encounter type: initial encounter Fracture alignment: displaced Qualified Code(s): S72.142A - Displaced intertrochanteric fracture of left femur, initial encounter for closed fracture (2) History of CVA (cerebrovascular accident): (3) Alzheimer disease: (4) ASHD (arteriosclerotic heart disease): (5) Dyslipidemia: (6) Diabetes: (7) Essential hypertension: (8) UTI (urinary tract infection): (9) Comminuted fracture of left patella: Qualifiers: Encounter type: initial encounter Fracture alignment: displaced Fracture type: closed Qualified Code(s): S82.042A - Displaced comminuted fracture of left patella, initial encounter for closed fracture (10) Hypomagnesemia: (11) Altered mental status: Plan Altered mental status: Secondary to acute CVA/PNA Repeat CT head without contrast done this morning: Has not shown any acute intracranial pathology MRI head without contrast: A few small acute ischemic strokes are present in the left frontoparietal periventricular white matter up to 2.6 cm in size. ABG: Patient is on aspirin statin Plavix Continue to monitor mentation Neuro check every 4 hours Aspiration precaution Currently NPO Fall precaution #SVT : Patient had an episode of SVT last night: Received digoxin, 5 mg IV x2 # Pneumonia: X-ray chest done this morning has shown: Bibasilar consolidation worse on the right versus the left concerning for pneumonia. Follow blood culture Sputum gram stain and culture Urine Legionella antigen Bacterial antigen panel Antibiotic coverage broadened to Zosyn Left hip fracture -S post-ORIF -Pain control morphine 2 mg every 4 hours -Lovenox for DVT prophylaxis -Is on aspirin 325 -PT OT -Orthopedic service consulted for surgical invention today -Lovenox for DVT prophylaxis left patellar fracture -There is a fracture fragment off the inferior patella which may be old. There is a minimally displaced fracture off the posterior medial tibial plateau which may be acute. If there is desire for further evaluation, a MRI could be performed. -We will undergo left knee MRI History of CVA continue aspirin -Patient was placed on parasugrel for history of cardiac stenting remotely in the past, she is allergic to Plavix -She has a history of cardiac stenting, but this was quite remote -We will resume parasugrel after sugery, continue aspirin for now History of CAD, remote history, intolerance to Plavix, on Effient and aspirin, Effient held for surgery, continue aspirin, resume Effient after surgery Alzheimer's disease, is on galantamine Hypertension continue amlodipine, lisinopril Type 2 diabetes mellitus, moderate dose sliding scale, Lantus 20 units at be dtime Hypomagnesemia, will replace UTI,: Urine culture is negative: Continue ceftriaxone for now Attestations Medical Necessity Statement*: PATIENT NEEDS 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 Care Code Acute Res[employer]oir Engineering Manager for g Fwd Exam Expanded Problem Focused Diagnoses Closed intertrochanteric fracture of left femur S72.142A Encounter type: initial encounter Fracture alignment: displaced History of CVA (cerebrovascular accident) Z86.73 Alzheimer disease G30.9; F02.80 ASHD (arteriosclerotic heart disease) I25.10 Dyslipidemia E78.5 Diabetes E11.9 Essential hypertension I10 UTI (urinary tract infection) N39.0 Comminuted fracture of left patella S82.042A Encounter type: initial encounter Fracture alignment: displaced Fracture type: closed Hypomagnesemia E83.42 Altered mental status R41.82
[2022-05-30] MEDS: FUROsemide 10 mg/mL SDV 2mL 20 MG IVP ×2 (16:19→23:33)
--- NOTE | 2022-05-30 16:28 | P.PN_ITS ---
Subjective Subjective: Patient is seen laying in her bed. Her is not present at the time of my visit. She has become less responsive, and there is significant concerns of a recurrent CVA. Medications: Reviewed: Yes Vitals/I&O/Wt Last Vital Signs Temp 98.7 F 05/30/22 15:33 Pulse 105 H 05/30/22 15:33 Resp 18 05/30/22 15:33 BP 115/72 05/30/22 15:33 Pulse Ox 98 05/30/22 15:33 O2 Del Method 05/30/22 08:00 O2 Flow Rate 9 05/30/22 08:00 05/30/22 05/30/22 05/30/22 06:59 14:59 22:59 Intake Total 553.333 / 603.333 400 / 400 86.667 / 486.667 Output Total 200 / 200 Balance 553.333 / 603.333 400 / 400 -113.333 / 286.667 Weight last 48 hrs Weight 159 lb 14.4 oz Weight 161 lb 6.4 oz Physical Exam Const: COMMON NORMALS: no acute distress, patient oriented x3 and alert GENERAL APPEARANCE: cooperative and comfortable NUTRITIONAL APPEARANCE: ov erweight ORIENTATION/CONSCIOUSNESS: Yes awake HENMT: COMMON NORMALS: normocephalic and atraumatic HEAD & SCALP: normocephalic and atraumatic Eye: GENERAL EYE: appearance normal, both eyes and all related structures Chest: COMMONS NORMALS: normal inspection of the chest Resp: COMMON NORMALS: normal respiratory effort EFFORT & INSPECTION: Yes able to speak in complete sentences and Yes symmetric chest movement Extremity: LEFT LOWER EXTREMITY: Yes hip joint Left hip: Yes inspection (Dressing is dry and intact.) and Yes neurovascular exam (No evidence of DVT, but the patient is only minimally responsive at the mom) Neuro: COMMON NORMALS: patient oriented x3 SENSORIUM/ORIENTATION: Yes alert Psych: COMMON NORMALS: mental status grossly normal APPEARANCE: Yes grossly normal ATTITUDE: Yes calm and Yes engaged ATTENTION/CONCENTRATION: Yes attention grossly intact Skin: COMMON NORMALS: no rashes or lesions noted GENERAL SKIN EXAM: no rashes or lesions noted Urinary Catheter Management: Vaughn Latex: Cath Placed During This Visit: yes, but has since been removed by the nurse Reason for Continuing Indwelling Catheter: Acute Urinary Retention or Obstruction Urinary Catheter Date of Insertion: 05/28/22 Urinary Catheter Time of Insertion: 23:18 Date Urinary Catheter Removed: 05/28/22 Time Urinary Catheter Discontinued: 06:29 Data 05/30/22 05:04 05/30/22 05:04 Micro: Microbiology 05/30/22 09:06 Blood Culture - Preliminary Blood SPECIMEN COLLECTED 05/30/22 09:02 Blood Culture - Preliminary Blood SPECIMEN COLLECTED A&P Assessment and plan (1) Closed intertrochanteric fracture of left femur: This 82-year-old woman with known medical history of CVA this spring, diabetes, essential hypertension, dyslipidemia, and hypothyroidism presented through the emergency department today after a fall at home. She got up to let out the dog, and when she let the dog back in, she fell onto her left knee and left hip. Initial imaging studies in the emergency department demonstrated a comminuted displaced angulated intertrochanteric left hip fracture, and the patient was admitted for definitive treatment. Additionally, the patient has a remote patella fracture which causes giving way of her knee. I discussed with the family that we will address this fracture over a longer term when she has proceeded with rehab after her hip fracture. Physical therapy continues attempts to work with the patient, but given her lack of responsiveness at the moment, she is not able to fully participate. Transfer is on hold pending further work-up. Qualifiers: Encounter type: initial encounter Fracture alignment: displaced Qualified Code(s): S72.142A - Displaced intertrochanteric fracture of left femur, initial encounter for closed fracture (2) Comminuted fracture of left patella: This fracture appears more remote than acute. Qualifiers: Encounter type: initial encounter Fracture type: closed Fracture alignment: displaced Qualified Code(s): S82.042A - Displaced comminuted fracture of left patella, initial encounter for closed fracture (3) Altered mental status: New findings on MRI involving the left side with previous imaging demonstrating a right-sided CVA (4) History of CVA (cerebrovascular accident): Attestations Medical Necessity Statement*: Per hospitalist team. 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 Care Code Acute Registered Nurse Post Partum for Fabiola Chauhan Diagnoses Closed intertrochanteric fracture of left femur S72.142A Encounter type: initial encounter Fracture alignment: displaced Comminuted fracture of left patella S82.042A Encounter type: initial encounter Fracture type: closed Fracture alignment: displaced Altered mental status R41.82 History of CVA (cerebrovascular accident) Z86.73
[2022-05-30 16:54] LABS: Glucose Point of Care 209 mg/dL (70-110)
[2022-05-30 17:42] LABS: Hematocrit 26.6 % (37.0-47.0); Hemoglobin 8.5 g/dL (11.5-15.3)
[2022-05-30] MEDS: metoprolol tartrate 1 mg/1 mL SDV 5 mL 5 MG IVP (21:24)
[2022-05-30] MEDS: insulin glargine 100 units/1 mL 20 UNIT SUBCUT (22:47)
[2022-05-31] VITALS (9 sets, daily range): BP systolic 119–153; BP diastolic 64–82; PULSE 97–129; RESP 16–24; TEMP 36.8–38.2; O2SAT 96–100
[2022-05-31] MEDS: piperacillin-tazobactam 3.375 GM in sodium chloride 0.9% (plus) 50 ML IV ×3 (01:17→16:20)
[2022-05-31 02:03] LABS: Basophils % 0.2 %; Eosinophils % 0.3 %; Hematocrit 29.1 % (37.0-47.0); Hemoglobin 9.1 g/dL (11.5-15.3); Lymphocytes % 16.9 %; Mean Corpuscular HGB Conc 31.3 g/dL (30.0-36.0); Mean Corpuscular Hemoglobin 29.8 pg (28.0-34.0); Mean Corpuscular Volume 95.4 fl (81-99); Mean Platelet Volume 9.2 fL (7.4-10.4); Monocytes % 8.5 %; Neutrophils # 8.74 10^3/uL (1.8-7.7); Neutrophils % 73.7 %; Nucleated Red Blood Cells % 0.3 %; Platelet Count 276 10^3/cmm (130-400); Red Blood Count 3.05 10^6/uL (4.1-5.3); Red Cell Distribution Width 14.2 % (12.1-15.1); White Blood Count 11.9 10^3/uL (4.0-10.0)
[2022-05-31 02:25] LABS: Anion Gap 16.6 (5-19); Blood Urea Nitrogen 34 mg/dL (8-23); Calcium 9.5 mg/dL (8.5-10.5); Carbon Dioxide 25 mmol/L (22-29); Chloride 109 mmol/L (98-107); Glucose 221 mg/dL (65-115); Osmolality Calculated 318 mOsm/kg (285-295); Potassium 3.6 mmol/L (3.5-5.1); Sodium 147 mmol/L (136-145)
[2022-05-31 02:36] LABS: NT Pro B Type Natriuretic Pept 18773 pg/mL (0-450)
[2022-05-31] MEDS: metoprolol tartrate 1 mg/1 mL SDV 5 mL 5 MG IVP (02:47)
[2022-05-31 05:26] LABS: Glucose Point of Care 248 mg/dL (70-110)
[2022-05-31 06:38] LABS: Glucose Point of Care 247 mg/dL (70-110)
[2022-05-31] MEDS: insulin lispro 100 unit/1 mL SUBCUT ×4 (09:49→22:29)
[2022-05-31] MEDS: dextrose 5% 1,000 ML 30 ML IV (09:50)
--- NOTE | 2022-05-31 10:15 | PC.OT ---
PER NURSING; PT IS NOT ALERT TODAY ABOUT 30-40 MINUTES AGO , BUT OT COULD BE ATTEMPTED. PT UNRESPONSIVE TO VERBAL CUES. WAS PRESENT IN ROOM AND REPORTS HIS IS WORN OUT FROM MOVING HER LEFT ARM. THERAPY WILL BE ATTEMPTED TOMORROW.
[2022-05-31] MEDS: aspirin 300 mg Supp PR (10:17)
--- NOTE | 2022-05-31 10:59 | PC.SOCIAL ---
IMM update Imm updated with at bedside. Copy of page 2 provided. verbalized understanding. Copy in chart initialed, dated and timed.
[2022-05-31 11:12] LABS: Glucose Point of Care 262 mg/dL (70-110)
[2022-05-31] MEDS: enoxaparin 40 mg/0.4 mL Syringe SUBCUT (11:29)
--- NOTE | 2022-05-31 11:36 | PM.PN ---
Subjective Subjective: Patient is seen in her room. Her son is there with her. She has been less responsive secondary to her CVA. This is caused her to not be able to participate with physical therapy. Medications: Reviewed: Yes Medication Review Details: Generic Name Dose Route Start Last Admin Trade Name Freq PRN Reason Stop Dose Admin Allopurinol 200 mg 05/27/22 09:00 05/31/22 09:03 Allopurinol 100 Mg Tablet PO Not Given DAILY AD[facility] Amlodipine Besylat e 5 mg 05/27/22 09:00 05/29/22 09:07 Amlodipine 5 Mg Tablet PO Not Given DAILY ADAMARIS Aspirin 300 mg 05/29/22 21:00 05/31/22 10:17 Aspirin 300 Mg S upp [place] 300 mg DAILY ADAMARIS Administration Atorvastatin Calci um 80 mg 05/30/22 09:00 05/31/22 09:03 Atorvastatin 40 Mg Tablet PO Not Given DAILY AD[facility] Celecoxib 200 mg 05/28/22 09:00 05/31/22 09:03 Celecoxib 200 Mg Capsule PO Not Given DAILY ADAM[facility]IS Duloxetine HCl 60 mg 05/27/22 09:00 05/31/22 09:03 Duloxetine 60 Mg Capsule PO Not Given DAILY ADAMARIS Enoxaparin Sodium 40 mg 05/31/22 10:30 05/31/22 11:29 Enoxaparin 40 Mg /0.4 Ml Syringe SUBCUT 40 mg Q24H ADAMARIS Administration Gabapentin 100 mg 05/26/22 18:00 05/31/22 09:03 Gabapentin 100 M g Capsule PO Not Given BID ADAMARIS Piperacillin Sod/T azobactam 50 mls @ 12.5 mls /hr 05/30/22 08:30 05/31/22 10:17 Sod 3.375 gm/ So dium Chloride IV 12.5 mls/hr Q8H ADAMARIS Administration Protocol Dextrose 1,000 mls @ 30 ml s/hr 05/31/22 08:00 05/31/22 09:50 D5w IV 30 mls/hr .Q24H ADAMARIS Administration Insulin Glargine 20 unit 05/26/22 21:00 05/30/22 22:47 Insulin Glargine 100 Units/1 Ml SUBCUT 20 unit BEDTIME ADAMARIS Administration Insulin Human Lisp ro 0 unit 05/26/22 18:00 05/31/22 12:35 Insulin Lispro 1 00 Unit/1 Ml SUBCUT 10 unit WM&BEDTIME ADAMARIS Administration Protocol Levothyroxine Sodi um 75 mcg 05/27/22 09:00 05/31/22 09:04 Levothyroxine 75 Mcg Tablet PO Not Given DAILY [facility] Lisinopril 20 mg 05/27/22 09:00 05/29/22 09:07 Lisinopril 10 Mg Tablet PO Not Given DAILY ADAMARIS Metoprolol Tartrat e 25 mg 05/26/22 18:00 05/29/22 16:59 Metoprolol Tartr ate 25 Mg Tablet PO Not Given BID [facility] Metoprolol Tartrat e 5 mg 05/30/22 17:11 05/31/22 02:47 Metoprolol Tartr ate 1 Mg/1 Ml Sdv 5 Ml IVP 5 mg Q4H PRN Administration SVT Morphine Sulfate 2 mg 05/30/22 09:43 05/30/22 14:19 Morphine 4 Mg/Ml Sdv 1 Ml IVP 2 mg Q4H PRN Administration SEVERE PAIN Non-Formulary Medi cation 8 mg 05/26/22 18:00 05/31/22 09:03 Galantamine PO Not Given BID [facility] Oxycodone HCl 5 - 10 mg 05/27/22 15:13 05/29/22 09:07 Oxycodone 5 Mg I r Tab/Cap PO 5 mg Q4H PRN Administration MODERATE TO SEVER E PAIN Pantoprazole Sodiu m 40 mg 05/26/22 13:15 05/31/22 12:36 Pantoprazole 40 Mg Sdv IVP 40 mg Q24H ADAMARIS Administration Senna/Docusate Sod ium 2 tab 05/27/22 18:00 05/31/22 09:04 Sennosides-Docus ate Tablet PO Not Given BID [facility] Ticagrelor 90 mg 05/29/22 18:00 05/31/22 09:04 Ticagrelor 90 Mg Tablet PO Not Given BID [facility] Vitals/I&O/Wt Last Vital Signs Temp 98.3 F 05/31/22 07:47 Pulse 97 05/31/22 07:47 Resp 17 05/31/22 07:47 BP 126/71 05/31/22 07:47 Pulse Ox 98 05/31/22 07:47 O2 Del Method 05/31/22 07:47 O2 Flow Rate 3 05/31/22 07:38 05/30/22 05/31/22 05/31/22 22:59 06:59 14:59 Intake Total 116.667 / 516.667 20 / 536.667 50 / 50 Output Total 1125 / 1125 1100 / 2225 Balance -1008.333 / -608.333 -1080 / -1688.333 50 / 50 Weight last 48 hrs Weight 159 lb 14.4 oz Physical Exam Const: COMMON NORMALS: no acute distress, patient oriented x3 and alert GENERAL APPEARANCE: cooperative and comfortable NUTRITIONAL APPEARANCE: overweight ORIENTATION/CONSCIOUSNESS: Yes awake HENMT: COMMON NORMALS: normocephalic and atraumatic HEAD & SCALP: normocephalic and atraumatic Eye: GENERAL EYE: appearance normal, both eyes and all related structures Chest: COMMONS NORMALS: normal inspection of the chest Resp: COMMON NORMALS: normal respiratory effort EFFORT & INSPECTION: Yes able to speak in complete sentences and Yes symmetric chest movement Extremity: LEFT LOWER EXTREMITY: Yes hip joint (Dressing is dry and intact.) Left hip: Yes palpation (No obvious tenderness, but the patient's minimally responsive) and Yes neurovascular exam (No significant swelling or evidence of DVT) Neuro: COMMON NORMALS: patient oriented x3 SENSORIUM/ORIENTATION: Yes alert Psych: COMMON NORMALS: mental status grossly normal APPEARANCE: Yes grossly normal ATTITUDE: Yes calm and Yes engaged ATTENTION/CONCENTRATION: Yes attention grossly intact Skin: COMMON NORMALS: no rashes or lesions noted GENERAL SKIN EXAM: no rashes or lesions noted Urinary Catheter Management: Vauhgn Latex: Cath Placed During This Visit: yes, but has since been removed by the nurse Reason for Continuing Indwelling Catheter: Acute Urinary Retention or Obstruction Urinary Catheter Date of Insertion: 05/28/22 Urinary Catheter Time of Insertion: 23:18 Date Urinary Catheter Removed: 05/28/22 Time Urinary Catheter Discontinued: 06:29 Data 05/31/22 01:27 05/31/22 01:27 Micro: Microbiology 05/30/22 09:06 Blood Culture - Preliminary Blood NEGATIVE TO DATE 05/30/22 09:02 Blood Culture - Preliminary Blood NEGATIVE TO DATE A&P Assessment and plan (1) Closed intertrochanteric fracture of left femur: This 82-year-old woman with known medical history of CVA this spring, diabetes, essential hypertension, dyslipidemia, and hypothyroidism presented through the emergency department today after a fall at home. She got up to let out the dog, and when she let the dog back in, she fell onto her left knee and left hip. Initial imaging studies in the emergency department demonstrated a comminuted displaced angulated intertrochanteric left hip fracture, and the patient was admitted for definitive treatment. Additionally, the patient has a remote patella fracture which causes giving way of her knee. I discussed with the family that we will address this fracture over a longer term when she has proceeded with rehab after her hip fracture. During this hospitalization, the patient has been diagnosed with a CVA. This is limiting her rehab. I will sign off of the patient for now unless they have further orthopedic needs. Qualifiers: Encounter type: initial encounter Fracture alignment: displaced Qualified Code(s): S72.142A - Displaced intertrochanteric fracture of left femur, initial encounter for closed fracture (2) Comminuted fracture of left patella: This fracture appears more remote than acute. Qualifiers: Encounter type: initial encounter Fracture type: closed Fracture alignment: displaced Qualified Code(s): S82.042A - Displaced comminuted fracture of left patella, initial encounter for closed fracture (3) Altered mental status: New findings on MRI involving the left side with previous imaging demonstrating a right-sided CVA (4) History of CVA (cerebrovascular accident): Attestations Medical Necessity Statement*: Per primary service. 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 Care Code Acute Veterinary Anatomist for [facility] Diagnoses Closed intertrochanteric fracture of left femur S72.142A Encounter type: initial encounter Fracture alignment: displaced Comminuted fracture of left patella S82.042A Encounter type: initial encounter Fracture type: closed Fracture alignment: displaced Altered mental status R41.82 History of CVA (cerebrovascular accident) Z86.73
--- NOTE | 2022-05-31 11:43 | ECG_ITS ---
[facility] Test Date: 2022-05-31 Pat Name: Ivelisse Gardner Department: Room: 268 Gender: Female Photographic Spotter: : 1940 Requested By: Olaf Marquez Order Number: [id number] Gavin MD: Chase Marquez M.D. Measurements Intervals [place] Rate: 126 P: 69 [place]: 224 QRS: 22 QRSD: 93 T: 0 QT: 314 QTc: 455 Interpretive Statements SINUS TACHYCARDIA WITH FIRST DEGREE AV BLOCK ANTERIOR MYOCARDIAL INFARCTION , PROBABLY OLD [40+ ms Q WAVE AND/OR ST/T ABNORMALITY IN V3/V4] INFERIOR MYOCARDIAL INFARCTION , OF INDETERMINATE AGE [40+ ms Q WAVE AND/OR ST/T ABNORMALITY IN II/aVF] ST DEPRESSION, CONSIDER SUBENDOCARDIAL INJURY [0.1+ mV ST DEPRESSION] Compared to ECG 05/26/2022 15:32:13 ST (T wave) deviation now present Sinus rhythm no longer present T-wave abnormality no longer present Myocardial infarct finding still present Electronically Signed On 05-31-2022 12:55:38 [employer]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 [email or web address]
--- NOTE | 2022-05-31 11:47 | PC.SLP ---
Patient is unable to fully participate in speech therapy or evaluation.
[2022-05-31] MEDS: pantoprazole 40 mg SDV IVP (12:36)
--- NOTE | 2022-05-31 14:46 | P.PN_ITS ---
Subjective Subjective: Patient was seen and examined this morning,she continue to be least responsive,moving her rt upper extremity,unfortunately now having fever,with noted Tmax of : 100.7, THOUGH HER WBC Count has gone slightly down, serum sodium has also trended up to 147.Will start D5W @30CC/HR.EKG is showing sinus tachycardia. Medications: Reviewed: Yes Medication Review Details: Generic Name Dose Route Start Last Admin Trade Name Freq PRN Reason Stop Dose Admin Allopurinol 200 mg 05/27/22 09:00 05/31/22 09:03 Allopurinol 100 Mg Tablet PO Not Given DAILY AD[facility]AR[facility] Amlodipine Besylat e 5 mg 05/27/22 09:00 05/29/22 09:07 Amlodipine 5 Mg Tablet PO Not Given DAILY [facility] Aspirin 300 mg 05/29/22 21:00 05/31/22 10:17 Aspirin 300 Mg S upp [place] 300 mg DAILY ADAMARIS Administration Atorvastatin Calci um 80 mg 05/30/22 09:00 05/31/22 09:03 Atorvastatin 40 Mg Tablet PO Not Given DAILY [facility] Celecoxib 200 mg 05/28/22 09:00 05/31/22 09:03 Celecoxib 200 Mg Capsule PO Not Given DAILY AD[facility] Duloxetine HCl 60 mg 05/27/22 09:00 05/31/22 09:03 Duloxetine 60 Mg Capsule PO Not Given DAILY ADAMAR[facility] Enoxaparin Sodium 40 mg 05/31/22 10:30 05/31/22 11:29 Enoxaparin 40 Mg /0.4 Ml Syringe SUBCUT 40 mg Q24H ADAMARIS Administration Gabapentin 100 mg 05/26/22 18:00 05/31/22 09:03 Gabapentin 100 M g Capsule PO Not Given BID [facility] Piperacillin Sod/T azobactam 50 mls @ 12.5 mls /hr 05/30/22 08:30 05/31/22 10:17 Sod 3.375 gm/ So dium Chloride IV 12.5 mls/hr Q8H ADAMARIS Administration Protocol Dextrose 1,000 mls @ 30 ml s/hr 05/31/22 08:00 05/31/22 09:50 D5w IV 30 mls/hr .Q24H ADAMARIS Administration Insulin Glargine 20 unit 05/26/22 21:00 05/30/22 22:47 Insulin Glargine 100 Units/1 Ml SUBCUT 20 unit BEDTIME ADAMARIS Administration Insulin Human Lisp ro 0 unit 05/26/22 18:00 05/31/22 12:35 Insulin Lispro 1 00 Unit/1 Ml SUBCUT 10 unit WM&BEDTIME ADAMARIS Administration Protocol Levothyroxine Sodi um 75 mcg 05/27/22 09:00 05/31/22 09:04 Levothyroxine 75 Mcg Tablet PO Not Given DAILY [facility] Lisinopril 20 mg 05/27/22 09:00 05/29/22 09:07 Lisinopril 10 Mg Tablet PO Not Given DAILY [facility] Metoprolol Tartrat e 25 mg 05/26/22 18:00 05/29/22 16:59 Metoprolol Tartr ate 25 Mg Tablet PO Not Given BID [facility] Metoprolol Tartrat e 5 mg 05/30/22 17:11 05/31/22 02:47 Metoprolol Tartr ate 1 Mg/1 Ml Sdv 5 Ml IVP 5 mg Q4H PRN Administration SVT Morphine Sulfate 2 mg 05/30/22 09:43 05/30/22 14:19 Morphine 4 Mg/Ml Sdv 1 Ml IVP 2 mg Q4H PRN Administration SEVERE PAIN Non-Formulary Medi cation 8 mg 05/26/22 18:00 05/31/22 09:03 Galantamine PO Not Given BID [facility] Oxycodone HCl 5 - 10 mg 05/27/22 15:13 05/29/22 09:07 Oxycodone 5 Mg I r Tab/Cap PO 5 mg Q4H PRN Administration MODERATE TO SEVER E PAIN Pantoprazole Sodiu m 40 mg 05/26/22 13:15 05/31/22 12:36 Pantoprazole 40 Mg Sdv IVP 40 mg Q24H [facility] Administration Senna/Docusate Sod ium 2 tab 05/27/22 18:00 05/31/22 09:04 Sennosides-Docus ate Tablet PO Not Given BID [facility] Ticagrelor 90 mg 05/29/22 18:00 05/31/22 09:04 Ticagrelor 90 Mg Tablet PO Not Given BID [facility] Vitals/I&O/Wt Last Vital Signs Temp 100.7 F H 05/31/22 11:51 Pulse 122 H 05/31/22 11:51 Resp 17 05/31/22 11:51 BP 130/76 05/31/22 11:51 Pulse Ox 97 12/22/22 11:51 O2 Del Method 05/31/22 11:51 O2 Flow Rate 3 05/31/22 07:38 05/30/22 05/31/22 05/31/22 22:59 06:59 14:59 Intake Total 116.667 / 516.667 20 / 536.667 50 / 50 Output Total 1125 / 1125 1100 / 2225 Balance -1008.333 / -608.333 -1080 / -1688.333 50 / 50 Weight last 48 hrs Weight 72.529 kg Physical Exam Resp: COMMON NORMALS: normal respiratory effort, No retractions, No use of accessory muscles and clear to auscultation bilaterally EFFORT & INSPECTION: Yes symmetric chest movement AUSCULTATION: clear to auscultation bilaterally Cardio: COMMON NORMALS: regular rate, regular rhythm, S1 normal heart sound present, S2 normal heart sound present, No gallops present (Cardio), No murmurs present (Cardio), No rub (Cardio) and Peripheral pulses 2+ throughout RATE: regular rate RHYTHM: regular rhythm HEART SOUNDS: S1 normal heart sound present and S2 normal heart sound present PERIPHERAL PULSES: Peripheral pulses 2+ throughout GI: COMMON NORMALS: Normal to inspection, nondistended, normoactive bowel s ounds present, Soft to palpation, non-tender, No hepatosplenomegaly present and no masses AUSCULTATION: Yes normoactive bowel sounds PALPATION: Yes Soft to palpation and Yes No hepatosplenomegaly present RECTAL EXAM: deferred Extremity: COMMON NORMALS: no clubbing, cyanosis or edema and no pedal edema Urinary Catheter Management: Vaughn Latex: Cath Placed During This Visit: yes, but has since been removed by the nurse Reason for Continuing Indwelling Catheter: Acute Urinary Retention or Obstruction Urinary Catheter Date of Insertion: 05/28/22 Urinary Catheter Time of Insertion: 23:18 Date Urinary Catheter Removed: 05/28/22 Time Urinary Catheter Discontinued: 06:29 Data 05/31/22 01:27 05/31/22 01:27 Micro: Microbiology 05/30/22 09:06 Blood Culture - Preliminary Blood NEGATIVE TO DATE 05/30/22 09:02 Blood Culture - Preliminary Blood NEGATIVE TO DATE A&P Assessment and plan (1) Closed intertrochanteric fracture of left femur: Qualifiers: Encounter type: initial encounter Fracture alignment: displaced Qualified Code(s): S72.142A - Displaced intertrochanteric fracture of left femur, initial encounter for closed fracture (2) History of CVA (cerebrovascular accident): (3) Alzheimer disease: (4) ASHD (arteriosclerotic heart disease): (5) Dyslipidemia: (6) Diabetes: (7) Essential hypertension: (8) UTI (urinary tract infection): (9) Comminuted fracture of left patella: Qualifiers: Encounter type: initial encounter Fracture alignment: displaced Fracture type: closed Qualified Code(s): S82.042A - Displaced comminuted fracture of left patella, initial encounter for closed fracture (10) Hypomagnesemia: (11) Altered mental status: Plan Altered mental status: Secondary to acute CVA/PNA Repeat CT head without contrast done this morning: Has not shown any acute intracranial pathology MRI head without contrast: A few small acute ischemic strokes are present in the left frontoparietal periventricular white matter up to 2.6 cm in size. ABG: Patient is on aspirin statin Plavix Continue to monitor mentation Neuro check every 4 hours Aspiration precaution Currently NPO Fall precaution #SVT : Patient had an episode of SVT last night: Received digoxin, 5 mg IV x2 # Pneumonia: Possible aspiration aspiration. X-ray chest done this morning has shown: Bibasilar consolidation worse on the right versus the left concerning for pneumonia. Follow blood culture Sputum gram stain and culture Urine Legionella antigen Bacterial antigen panel Procalcitonin Antibiotic coverage broadened to Zosyn Left hip fracture -S post-ORIF -Pain control morphine 2 mg every 4 hours -Lovenox for DVT prophylaxis -Is on aspirin 325 -PT OT -Orthopedic service consulted for surgical invention today -Lovenox for DVT prophylaxis left patellar fracture -There is a fracture fragment off the inferior patella which may be old. There is a minimally displaced fracture off the posterior medial tibial plateau which may be acute. If there is desire for further evaluation, a MRI could be performed. -We will undergo left knee MRI History of CVA continue aspirin -Patient was placed on parasugrel for history of cardiac stenting remotely in the past, she is allergic to Plavix -She has a history of cardiac stenting, but this was quite remote -We will resume parasugrel after sugery, continue aspirin for now History of CAD, remote history, intolerance to Plavix, on Effient and aspirin, Effient held for surgery, continue aspirin, resume Effient after surgery Alzheimer's disease, is on galantamine Hypertension continue amlodipine, lisinopril Type 2 diabetes mellitus, moderate dose sliding scale, Lantus 20 units at bedtime Hypomagnesemia, will replace UTI,: Urine culture is negative: Attestations Medical Necessity Statement*: Patient needs to be in hospital for the management of PNA, AMS, CVA 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 Care 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
[2022-05-31] MEDS: vancomycin 1,250 MG/250 ML PIGGYBACK 250 MG IV (16:48)
[2022-05-31 17:13] LABS: Glucose Point of Care 205 mg/dL (70-110)
[2022-05-31 20:50] LABS: Glucose Point of Care 258 mg/dL (70-110)
[2022-05-31] MEDS: insulin glargine 100 units/1 mL 30 UNIT SUBCUT (22:29)
[2022-06-01] VITALS (11 sets, daily range): BP systolic 120–155; BP diastolic 64–82; PULSE 110–122; RESP 14–28; TEMP 36.8–38.7; O2SAT 92–98
[2022-06-01] MEDS: metoprolol tartrate 1 mg/1 mL SDV 5 mL 5 MG IVP (00:50)
[2022-06-01] MEDS: piperacillin-tazobactam 3.375 GM in sodium chloride 0.9% (plus) 50 ML IV ×4 (00:50→23:55)
[2022-06-01 02:04] LABS: Basophils % 0.1 %; Eosinophils % 0.1 %; Hematocrit 29.6 % (37.0-47.0); Hemoglobin 9.1 g/dL (11.5-15.3); Lymphocytes # 1.7 10^3/uL (0.8-4.8); Lymphocytes % 16.2 %; Mean Corpuscular HGB Conc 30.7 g/dL (30.0-36.0); Mean Corpuscular Hemoglobin 29.9 pg (28.0-34.0); Mean Corpuscular Volume 97.4 fl (81-99); Mean Platelet Volume 9.4 fL (7.4-10.4); Monocytes # 1.3 10^3/uL (0.2-0.9); Monocytes % 12.9 %; Neutrophils # 7.19 10^3/uL (1.8-7.7); Neutrophils % 69.9 %; Nucleated Red Blood Cells # 0.1 /100WBC; Nucleated Red Blood Cells % 0.6 %; Platelet Count 281 10^3/cmm (130-400); Red Blood Count 3.04 10^6/uL (4.1-5.3); Red Cell Distribution Width 14.2 % (12.1-15.1); White Blood Count 10.3 10^3/uL (4.0-10.0)
[2022-06-01 02:37] LABS: Blood Urea Nitrogen 33 mg/dL (8-23); Calcium 9.1 mg/dL (8.5-10.5); Carbon Dioxide 25 mmol/L (22-29); Glucose 232 mg/dL (65-115)
[2022-06-01 02:44] LABS: Procalcitonin 0.22 ng/mL (0-0.5)
[2022-06-01 02:51] LABS: Chloride 113 mmol/L (98-107); Osmolality Calculated 327 mOsm/kg (285-295); Sodium 151 mmol/L (136-145)
[2022-06-01 04:40] LABS: Anion Gap 15.7 (5-19)
[2022-06-01 04:41] LABS: Potassium 2.7 mmol/L (3.5-5.1)
[2022-06-01] MEDS: lidocaine 1% 5 ML in potassium chloride premix 100 ML 25 ML IV (04:59)
[2022-06-01] MEDS: acetaminophen 650 mg Supp PR (04:59)
[2022-06-01 06:15] LABS: Glucose Point of Care 214 mg/dL (70-110)
--- NOTE | 2022-06-01 07:21 | XR_ITS ---
WS: [id number] Exam: XR chest 1V portable [id number] Date/Time of Exam: 06/01/2022 7:21 AM Reason For Exam: Pneumonia Comparison 05/30/2022. Previous is noted right basal infiltrate has almost completely resolved. There may be minimal residua l left basal infiltrate present. The lungs are otherwise clear. No pleural effusions. Normal cardiome diastinal silhouette. Signs of previous coronary artery stenting. XR/XR chest 1V portable [id number] IMPRESSION: 1. Almost complete resolution of bibasal infiltrates since the prior study. The re is probably minimal residual left basal infiltrate remaining.
[2022-06-01] MEDS: insulin lispro 100 unit/1 mL SUBCUT ×3 (09:42→20:54)
[2022-06-01] MEDS: enoxaparin 40 mg/0.4 mL Syringe SUBCUT (09:42)
[2022-06-01 11:28] LABS: Glucose Point of Care 228 mg/dL (70-110)
[2022-06-01] MEDS: pantoprazole 40 mg SDV IVP (12:26)
[2022-06-01] MEDS: aspirin 300 mg Supp PR (13:00)
--- NOTE | 2022-06-01 13:53 | PC.OT ---
PER NURSING; PT IS NOT ALERT TODAY. HR BETWEEN 114-120 BPM AT REST. WILL ATTEMPT OCCUPATIONAL THERAPY AGAIN TOMORROW.
[2022-06-01 17:04] LABS: Glucose Point of Care 129 mg/dL (70-110)
[2022-06-01 18:06] LABS: Blood Urea Nitrogen 28 mg/dL (8-23); Calcium 9.2 mg/dL (8.5-10.5); Carbon Dioxide 25 mmol/L (22-29); Chloride 115 mmol/L (98-107); Glucose 154 mg/dL (65-115); Osmolality Calculated 325 mOsm/kg (285-295); Sodium 153 mmol/L (136-145)
--- NOTE | 2022-06-01 18:36 | PM.PN ---
Subjective Subjective: Patient was seen and examined this morning, no significant change since yesterday, serum sodium is 153 today we will increase D5 water to 75 cc an hour. Medications: Reviewed: Yes Medication Review Details: Generic Name Dose Route Start Last Admin Trade Name Freq PRN Reason Stop Dose Admin Allopurinol 200 mg 05/27/22 09:00 05/31/22 09:03 Allopurinol 100 Mg Tablet PO Not Given DAILY AD[facility] Amlodipine Besylat e 5 mg 05/27/22 09:00 05/29/22 09:07 Amlodipine 5 Mg Tablet PO Not Given DAILY AD[facility] Aspirin 300 mg 05/29/22 21:00 05/31/22 10:17 Aspirin 300 Mg S upp [place] 300 mg DAILY ADAMARIS Administration Atorvastatin Calci um 80 mg 05/30/22 09:00 05/31/22 09:03 Atorvastatin 40 Mg Tablet PO Not Given DAILY [facility] Celecoxib 200 mg 05/28/22 09:00 05/31/22 09:03 Celecoxib 200 Mg Capsule PO Not Given DAILY AD[facility] Duloxetine HCl 60 mg 05/27/22 09:00 05/31/22 09:03 Duloxetine 60 Mg Capsule PO Not Given DAILY ADAM[facility] Enoxaparin Sodium 40 mg 05/31/22 10:30 05/31/22 11:29 Enoxaparin 40 Mg /0.4 Ml Syringe SUBCUT 40 mg Q24H ADAMARIS Administration Gabapentin 100 mg 05/26/22 18:00 05/31/22 09:03 Gabapentin 100 M g Capsule PO Not Given BID AD[facility] Piperacillin Sod/T azobactam 50 mls @ 12.5 mls /hr 05/30/22 08:30 05/31/22 10:17 Sod 3.375 gm/ So dium Chloride IV 12.5 mls/hr Q8H ADAMARIS Administration Protocol Dextrose 1,000 mls @ 30 ml s/hr 05/31/22 08:00 05/31/22 09:50 D5w IV 30 mls/hr .Q24H ADAMARIS Administration Insulin Glargine 20 unit 05/26/22 21:00 05/30/22 22:47 Insulin Glargine 100 Units/1 Ml SUBCUT 20 unit BEDTIME ADAMARIS Administration Insulin Human Lisp ro 0 unit 05/26/22 18:00 05/31/22 12:35 Insulin Lispro 1 00 Unit/1 Ml SUBCUT 10 unit WM&BEDTIME ADAMARIS Administration Protocol Levothyroxine Sodi um 75 mcg 05/27/22 09:00 05/31/22 09:04 Levothyroxine 75 Mcg Tablet PO Not Given DAILY [facility] Lisinopril 20 mg 05/27/22 09:00 05/29/22 09:07 Lisinopril 10 Mg Tablet PO Not Given DAILY ADAMAR[facility] Metoprolol Tartrat e 25 mg 05/26/22 18:00 05/29/22 16:59 Metoprolol Tartr ate 25 Mg Tablet PO Not Given BID AD[facility] Metoprolol Tartrat e 5 mg 05/30/22 17:11 05/31/22 02:47 Metoprolol Tartr ate 1 Mg/1 Ml Sdv 5 Ml IVP 5 mg Q4H PRN Administration SVT Morphine Sulfate 2 mg 05/30/22 09:43 05/30/22 14:19 Morphine 4 Mg/Ml Sdv 1 Ml IVP 2 mg Q4H PRN Administration SEVERE PAIN Non-Formulary Medi cation 8 mg 05/26/22 18:00 05/31/22 09:03 Galantamine PO Not Given BID [facility] Oxycodone HCl 5 - 10 mg 05/27/22 15:13 05/29/22 09:07 Oxycodone 5 Mg I r Tab/Cap PO 5 mg Q4H PRN Administration MODERATE TO SEVER E PAIN Pantoprazole Sodiu m 40 mg 05/26/22 13:15 05/31/22 12:36 Pantoprazole 40 Mg Sdv IVP 40 mg Q24H ADAMARIS Administration Senna/Docusate Sod ium 2 tab 05/27/22 18:00 05/31/22 09:04 Sennosides-Docus ate Tablet PO Not Given BID [facility] Ticagrelor 90 mg 05/29/22 18:00 05/31/22 09:04 Ticagrelor 90 Mg Tablet PO Not Given BID [facility] Vitals/I&O/Wt Last Vital Signs Temp 98.4 F 06/01/22 16:00 Pulse 116 H 06/01/22 16:00 Resp 18 06/01/22 16:00 BP 138/70 06/01/22 16:00 Pulse Ox 96 06/01/22 08:00 O2 Del Method 06/01/22 16:00 O2 Flow Rate 1 06/01/22 08:00 06/01/22 06/01/22 06/01/22 06:59 14:59 22:59 Intake Total 50 / 450 885 / 885 270 / 1155 Output Total 700 / 1125 Balance -650 / -675 885 / 885 270 / 1155 Weight last 48 hrs Weight 67.631 kg Physical Exam Resp: COMMON NORMALS: normal respiratory effort, No retractions, No use of accessory muscles and clear to auscultation bilaterally EFFORT & INSPECTION: Yes symmetric chest movement AUSCULTATION: clear to auscultation bilaterally Cardio: COMMON NORMALS: regular rate, regular rhythm, S1 normal heart sound present, S2 normal heart sound present, No gallops present (Cardio), No murmurs present (Cardio), No rub (Cardio) and Peripheral pulses 2+ throughout RATE: regular rate RHYTHM: regular rhythm HEART SOUNDS: S1 normal heart sound present and S2 normal heart sound present PERIPHERAL PULSES: Peripheral pulses 2+ throughout GI: COMMON NORMALS: Normal to inspection, nondistended, normoactive bowel sounds present, Soft to palpation, non-tender, No hepatosplenomegaly present and no masses AUSCULTATION: Yes normoactive bowel sounds PALPATION: Yes Soft to palpation and Yes No hepatosplenomegaly present RECTAL EXAM: deferred Extremity: COMMON NORMALS: no clubbing, cyanosis or edema and no pedal edema Urinary Catheter Management: Vaughn Latex: Cath Placed During This Visit: yes, but has since been removed by the nurse Reason for Continuing Indwelling Catheter: Acute Urinary Retention or Obstruction Urinary Catheter Date of Insertion: 05/28/22 Urinary Catheter Time of Insertion: 23:18 Date Urinary Catheter Removed: 05/28/22 Time Urinary Catheter Discontinued: 06:29 Data 06/01/22 01:24 06/01/22 17:30 Micro: Microbiology 05/31/22 18:40 MRSA Culture - Final Nose A&P Assessment and plan (1) Closed intertrochanteric fracture of left femur: Qualifiers: Encounter type: initial encounter Fracture alignment: displaced Qualified Code(s): S72.142A - Displaced intertrochanteric fracture of left femur, initial encounter for closed fracture (2) History of CVA (cerebrovascular accident): (3) Alzheimer disease: (4) ASHD (arteriosclerotic heart disease): (5) Dyslipidemia: (6) Diabetes: (7) Essential hypertension: (8) UTI (urinary tract infection): (9) Comminuted fracture of left patella: Qualifiers: Encounter type: initial encounter Fracture alignment: displaced Fracture type: closed Qualified Code(s): S82.042A - Displaced comminuted fracture of left patella, initial encounter for closed fracture (10) Hypomagnesemia: (11) Altered mental status: Plan Altered mental status: Secondary to acute CVA/PNA Repeat CT head without contrast done this morning: Has not shown any acute intracranial pathology MRI head without contrast: A few small acute ischemic strokes are present in the left frontoparietal periventricular white matter up to 2.6 cm in size. ABG: Patient is on aspirin statin Plavix Continue to monitor mentation Neuro check every 4 hours Aspiration precaution Currently NPO Fall precaution #SVT : Patient had an episode of SVT last night: Received digoxin, 5 mg IV x2 # Pneumonia: Possible aspiration aspiration. X-ray chest done this morning has shown: Bibasilar consolidation worse on the right versus the left concerning for pneumonia. Follow blood culture Sputum gram stain and culture Urine Legionella antigen Bacterial antigen panel Procalcitonin Antibiotic coverage broadened to Zosyn Left hip fracture -S post-ORIF -Pain control morphine 2 mg every 4 hours -Lovenox for DVT prophylaxis -Is on aspirin 325 -PT OT -Orthopedic service consulted for surgical invention today -Lovenox for DVT prophylaxis left patellar fracture -There is a fracture fragment off the inferior patella which may be old. There is a minimally displaced fracture off the posterior medial tibial plateau which may be acute. If there is desire for further evaluation, a MRI could be performed. -We will undergo left knee MRI History of CVA continue aspirin -Patient was placed on parasugrel for history of cardiac stenting remotely in the past, she is allergic to Plavix -She has a history of cardiac stenting, but this was quite remote -We will resume parasugrel after sugery, continue aspirin for now History of CAD, remote history, intolerance to Plavix, on Effient and aspirin, Effient held for surgery, continue aspirin, resume Effient after surgery Alzheimer's disease, is on galantamine Hypertension continue amlodipine, lisinopril Type 2 diabetes mellitus, moderate dose sliding scale, Lantus 20 units at bedtime Hypomagnesemia, will replace UTI,: Urine culture is negative: Attestations Medical Necessity Statement*: Patient is to be in hospital for management of stroke 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 Care 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
[2022-06-01] MEDS: lidocaine 1% 5 ML in potassium chloride premix 100 ML 50 ML IV (19:13)
[2022-06-01] MEDS: morphine 4 mg/mL SDV 1 mL 2 MG IVP (20:20)
[2022-06-01 20:39] LABS: Glucose Point of Care 227 mg/dL (70-110)
[2022-06-01] MEDS: dextrose 5% 1,000 ML 75 ML IV (20:50)
[2022-06-01] MEDS: insulin glargine 100 units/1 mL 30 UNIT SUBCUT (20:54)
[2022-06-02] VITALS (12 sets, daily range): BP systolic 118–157; BP diastolic 69–81; PULSE 81–114; RESP 15–18; TEMP 36.6–36.9; O2SAT 93–96
[2022-06-02 03:49] LABS: Basophils % 0.1 %; Eosinophils # 0.1 10^3/uL (0.0-0.8); Eosinophils % 0.5 %; Hematocrit 30.6 % (37.0-47.0); Hemoglobin 9.3 g/dL (11.5-15.3); Lymphocytes # 1.8 10^3/uL (0.8-4.8); Lymphocytes % 16.7 %; Mean Corpuscular HGB Conc 30.4 g/dL (30.0-36.0); Mean Corpuscular Hemoglobin 29.8 pg (28.0-34.0); Mean Corpuscular Volume 98.1 fl (81-99); Mean Platelet Volume 9.3 fL (7.4-10.4); Monocytes # 1.2 10^3/uL (0.2-0.9); Monocytes % 11.2 %; Neutrophils # 7.68 10^3/uL (1.8-7.7); Neutrophils % 70.4 %; Nucleated Red Blood Cells # 0.1 /100WBC; Nucleated Red Blood Cells % 0.5 %; Platelet Count 279 10^3/cmm (130-400); Red Blood Count 3.12 10^6/uL (4.1-5.3); Red Cell Distribution Width 14.6 % (12.1-15.1); White Blood Count 10.9 10^3/uL (4.0-10.0)
[2022-06-02 04:18] LABS: Anion Gap 14.2 (5-19); Blood Urea Nitrogen 25 mg/dL (8-23); Calcium 8.9 mg/dL (8.5-10.5); Carbon Dioxide 25 mmol/L (22-29); Chloride 117 mmol/L (98-107); Glucose 227 mg/dL (65-115); Osmolality Calculated 328 mOsm/kg (285-295); Potassium 3.2 mmol/L (3.5-5.1); Sodium 153 mmol/L (136-145)
[2022-06-02] MEDS: vancomycin 1,250 MG/250 ML PIGGYBACK 250 MG IV (05:07)
[2022-06-02] MEDS: metoprolol tartrate 1 mg/1 mL SDV 5 mL 5 MG IVP (05:21)
[2022-06-02] MEDS: morphine 4 mg/mL SDV 1 mL 2 MG IVP ×2 (05:21→21:49)
[2022-06-02 06:43] LABS: Glucose Point of Care 248 mg/dL (70-110)
--- NOTE | 2022-06-02 07:54 | PC.SOCIAL ---
IMM update IMM not updated as patient isn't expected to dc in the next 24-48 hours.
[2022-06-02] MEDS: piperacillin-tazobactam 3.375 GM in sodium chloride 0.9% (plus) 50 ML IV ×2 (08:34→16:55)
[2022-06-02] MEDS: aspirin 300 mg Supp PR (08:34)
[2022-06-02] MEDS: insulin lispro 100 unit/1 mL SUBCUT ×4 (08:35→20:52)
[2022-06-02] MEDS: enoxaparin 40 mg/0.4 mL Syringe SUBCUT (10:47)
[2022-06-02 10:59] LABS: Glucose Point of Care 195 mg/dL (70-110)
[2022-06-02] MEDS: pantoprazole 40 mg SDV IVP (13:06)
[2022-06-02] MEDS: dextrose 5% 1,000 ML 75 ML IV (13:08)
[2022-06-02 16:47] LABS: Glucose Point of Care 178 mg/dL (70-110)
--- NOTE | 2022-06-02 16:47 | P.PN_ITS ---
Subjective Subjective: Patient was seen and examined this morning,more alert and awake, worked with physical therapy. Medications: Reviewed: Yes Medication Review Details: Generic Name Dose Route Start Last Admin Trade Name Freq PRN Reason Stop Dose Admin Acetaminophen 650 mg 06/01/22 04:32 06/01/22 04:59 Acetaminophen 65 0 Mg Supp [place] 650 mg Q6H PRN Administration MILD PAIN OR INCR EASE TEMP Allopurinol 200 mg 05/27/22 09:00 06/02/22 08:45 Allopurinol 100 Mg Tablet PO Not Given DAILY AD[facility] Amlodipine Besylat e 5 mg 05/27/22 09:00 05/29/22 09:07 Amlodipine 5 Mg Tablet PO Not Given DAILY [facility] Aspirin 300 mg 05/29/22 21:00 06/02/22 08:34 Aspirin 300 Mg S upp [place] 300 mg DAILY ADAMARIS Administration Atorvastatin Calci um 80 mg 05/30/22 09:00 06/02/22 08:45 Atorvastatin 40 Mg Tablet PO Not Given DAILY [facility] Celecoxib 200 mg 05/28/22 09:00 06/02/22 08:45 Celecoxib 200 Mg Capsule PO Not Given DAILY [facility] Duloxetine HCl 60 mg 05/27/22 09:00 06/02/22 08:45 Duloxetine 60 Mg Capsule PO Not Given DAILY [facility] Enoxaparin Sodium 40 mg 05/31/22 10:30 06/02/22 10:47 Enoxaparin 40 Mg /0.4 Ml Syringe SUBCUT 40 mg Q24H ADAMARIS Administration Gabapentin 100 mg 05/26/22 18:00 06/02/22 08:45 Gabapentin 100 M g Capsule PO Not Given BID [facility] Piperacillin Sod/T azobactam 50 mls @ 12.5 mls /hr 05/30/22 08:30 06/02/22 13:07 Sod 3.375 gm/ So dium Chloride IV Infused Q8H ADAMARIS Infusion Protocol Dextrose 1,000 mls @ 75 ml s/hr 05/31/22 08:00 06/02/22 13:08 D5w IV 75 mls/hr .[id number] ADAMARIS Administration Vancomycin/PEG/NAD A/Lysine/Water 1,250 mg in 250 m ls @ 250 mls/hr 05/31/22 16:00 06/02/22 06:26 Vancocin IV Infused Q36H ADAMARIS Infusion Insulin Glargine 30 unit 05/31/22 21:00 06/01/22 20:54 Insulin Glargine 100 Units/1 Ml SUBCUT 30 unit BEDTIME ADAMARIS Administration Insulin Human Lisp ro 0 unit 06/01/22 08:00 06/02/22 13:02 Insulin Lispro 1 00 Unit/1 Ml SUBCUT 8 unit WM&BEDTIME ADAMARIS Administration Protocol Levothyroxine Sodi um 75 mcg 05/27/22 09:00 06/02/22 08:45 Levothyroxine 75 Mcg Tablet PO Not Given DAILY [facility] Lisinopril 20 mg 05/27/22 09:00 05/29/22 09:07 Lisinopril 10 Mg Tablet PO Not Given DAILY [facility] Metoprolol Tartrat e 25 mg 05/26/22 18:00 05/29/22 16:59 Metoprolol Tartr ate 25 Mg Tablet PO Not Given BID [facility] Metoprolol Tartrat e 5 mg 05/30/22 17:11 06/02/22 05:21 Metoprolol Tartr ate 1 Mg/1 Ml Sdv 5 Ml IVP 5 mg Q4H PRN Administration SVT Morphine Sulfate 2 mg 05/30/22 09:43 06/02/22 05:21 Morphine 4 Mg/Ml Sdv 1 Ml IVP 2 mg Q4H PRN Administration SEVERE PAIN Non-Formulary Medi cation 8 mg 05/26/22 18:00 06/02/22 08:45 Galantamine PO Not Given BID [facility] Pantoprazole Sodiu m 40 mg 05/26/22 13:15 06/02/22 13:06 Pantoprazole 40 Mg Sdv IVP 40 mg Q24H ADAMARIS Administration Senna/Docusate Sod ium 2 tab 05/27/22 18:00 06/02/22 08:46 Sennosides-Docus ate Tablet PO Not Given BID [facility] Ticagrelor 90 mg 05/29/22 18:00 06/02/22 08:46 Ticagrelor 90 Mg Tablet PO Not Given BID [facility] Vitals/I&O/Wt Last Vital Signs Temp 98.2 F 06/02/22 15:26 Pulse 104 H 06/02/22 16:05 Resp 15 06/02/22 15:26 BP 130/74 06/02/22 15:26 Pulse Ox 94 06/02/22 15:26 O2 Del Method 06/02/22 15:26 O2 Flow Rate 1 06/01/22 20:00 06/02/22 06/02/22 06/02/22 06:59 14:59 22:59 Intake Total 300 / 1610 1050 / 1050 Output Total 500 / 1300 Balance -200 / 310 1050 / 1050 Weight last 48 hrs Weight 67.631 kg Physical Exam Resp: COMMON NORMALS: normal respiratory effort, No retractions, No use of accessory muscles and clear to auscultation bilaterally EFFORT & INSPECTION: Yes symmetric chest movement AUSCULTATION: clear to auscultation bilaterally Cardio: COMMON NORMALS: regular rate, regular rhythm, S1 normal heart sound present, S2 normal heart sound present, No gallops present (Cardio), No murmurs present (Cardio), No rub (Cardio) and Peripheral pulses 2+ throughout RATE: regular rate RHYTHM: regular rhythm HEART SOUNDS: S1 normal heart sound present and S2 normal heart sound present PERIPHERAL PULSES: Peripheral pulses 2+ throughout GI: COMMON NORMALS: Normal to inspection, nondistended, normoactive bowel sounds present, Soft to palpation, non-tender, No hepatosplenomegaly present and no masses AUSCULTATION: Yes normoactive bowel sounds PALPATION: Yes Soft to palpation and Yes No hepatosplenomegaly present RECTAL EXAM: deferred Extremity: COMMON NORMALS: no clubbing, cyanosis or edema and no pedal edema Urinary Catheter Management: Vaughn Latex: Cath Placed During This Visit: yes, but has since been removed by the nurse Reason for Continuing Indwelling Catheter: Acute Urinary Retention or Obstruction Urinary Catheter Date of Insertion: 05/28/22 Urinary Catheter Time of Insertion: 23:18 Date Urinary Catheter Removed: 05/28/22 Time Urinary Catheter Discontinued: 06:29 Data 06/02/22 03:39 06/02/22 03:39 Micro: Microbiology 05/31/22 18:40 MRSA Culture - Final Nose A&P Assessment and plan (1) Closed intertrochanteric fracture of left femur: Qualifiers: Encounter type: initial encounter Fracture alignment: displaced Qualified Code(s): S72.142A - Displaced intertrochanteric fracture of left femur, initial encounter for closed fracture (2) History of CVA (cerebrovascular accident): (3) Alzheimer disease: (4) ASHD (arteriosclerotic heart disease): (5) Dyslipidemia: (6) Diabetes: (7) Essential hypertension: (8) UTI (urinary tract infection): (9) Comminuted fracture of left patella: Qualifiers: Encounter type: initial encounter Fracture alignment: displaced Fracture type: closed Qualified Code(s): S82.042A - Displaced comminuted fracture of left patella, initial encounter for closed fracture (10) Hypomagnesemia: (11) Altered mental status: Plan Altered mental status: Secondary to acute CVA/PNA Repeat CT head without contrast done this morning: Has not shown any acute intracranial pathology MRI head without contrast: A few small acute ischemic strokes are present in the left frontoparietal periventricular white matter up to 2.6 cm in size. ABG: Patient is on aspirin statin Plavix Continue to monitor mentation Neuro check every 4 hours Aspiration precaution Currently NPO Fall precaution #SVT : Patient had an episode of SVT last night: Received digoxin, 5 mg IV x2 # Pneumonia: Possible aspiration aspiration. X-ray chest done this morning has shown: Bibasilar consolidation worse on the right versus the left concerning for pneumonia. Follow blood culture Sputum gram stain and culture Urine Legionella antigen Bacterial antigen panel Procalcitonin Antibiotic coverage broadened to Zosyn Left hip fracture -S post-ORIF -Pain control morphine 2 mg every 4 hours -Lovenox for DVT prophylaxis -Is on aspirin 325 -PT OT -Orthopedic service consulted for surgical invention today -Lovenox for DVT prophylaxis left patellar fracture -There is a fracture fragment off the inferior patella which may be old. There is a minimally displaced fracture off the posterior medial tibial plateau which may be acute. If there is desire for further evaluation, a MRI could be performed. -We will undergo left knee MRI History of CVA continue aspirin -Patient was placed on parasugrel for history of cardiac stenting remotely in the past, she is allergic to Plavix -She has a history of cardiac stenting, but this was quite remote -We will resume parasugrel after sugery, continue aspirin for now History of CAD, remote history, intolerance to Plavix, on Effient and aspirin, Effient held for surgery, continue aspirin, resume Effient after surgery Alzheimer's disease, is on galantamine Hypertension continue amlodipine, lisinopril Type 2 diabetes mellitus, moderate dose sliding scale, Lantus 20 units at bedtime Hypomagnesemia, will replace UTI,: Urine culture is negative: Attestations Medical Necessity Statement*: patient needs to be in hospital for management of stroke. 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
[2022-06-02 17:27] LABS: Glucose Point of Care 177 mg/dL (70-110)
[2022-06-02 20:31] LABS: Glucose Point of Care 182 mg/dL (70-110)
[2022-06-02] MEDS: insulin glargine 100 units/1 mL 30 UNIT SUBCUT (20:52)
[2022-06-03] VITALS (12 sets, daily range): BP systolic 134–150; BP diastolic 64–83; PULSE 68–118; RESP 15–20; TEMP 36.6–38.1; O2SAT 88–99
[2022-06-03] MEDS: piperacillin-tazobactam 3.375 GM in sodium chloride 0.9% (plus) 50 ML IV ×3 (01:40→17:10)
[2022-06-03] MEDS: dextrose 5% 1,000 ML 75 ML IV (02:44)
[2022-06-03 04:16] LABS: Basophils % 0.2 %; Eosinophils # 0.4 10^3/uL (0.0-0.8); Eosinophils % 4.1 %; Hemoglobin 8.7 g/dL (11.5-15.3); Lymphocytes # 1.8 10^3/uL (0.8-4.8); Mean Corpuscular Hemoglobin 30.4 pg (28.0-34.0); Mean Corpuscular Volume 101.4 fl (81-99); Mean Platelet Volume 9.8 fL (7.4-10.4); Monocytes % 9.6 %; Neutrophils # 6.68 10^3/uL (1.8-7.7); Neutrophils % 67.4 %; Nucleated Red Blood Cells % 0.3 %; Platelet Count 238 10^3/cmm (130-400); Red Blood Count 2.86 10^6/uL (4.1-5.3); Red Cell Distribution Width 14.3 % (12.1-15.1); White Blood Count 9.9 10^3/uL (4.0-10.0)
[2022-06-03 04:43] LABS: Anion Gap 15.9 (5-19); Blood Urea Nitrogen 18 mg/dL (8-23); Calcium 8.5 mg/dL (8.5-10.5); Carbon Dioxide 23 mmol/L (22-29); Chloride 111 mmol/L (98-107); Glucose 171 mg/dL (65-115); Osmolality Calculated 310 mOsm/kg (285-295); Sodium 147 mmol/L (136-145)
[2022-06-03 05:04] LABS: Potassium 2.9 mmol/L (3.5-5.1)
[2022-06-03] MEDS: lidocaine 1% 5 ML in potassium chloride premix 100 ML 25 ML IV (05:41)
[2022-06-03 06:30] LABS: Glucose Point of Care 181 mg/dL (70-110)
--- NOTE | 2022-06-03 06:54 | XRR_ITS ---
PROCEDURE INFORMATION: Exam: XR Chest Exam date and time: 06/03/2022 8:09 AM Age: 82 years old Clinical indication: Shortness of breath; Additional info: SOB TECHNIQUE: Imaging protocol: Radiologic exam of the chest. Views: 1 view. COMPARISON: CR XR chest 1V portable [id number] 06/01/2022 9:04 AM FINDINGS: Lungs: Unremarkable. No consolidation. Pleural spaces: Unremarkable. No pleural effusion. No pneumothorax. Heart/Mediastinum: Unremarkable. No cardiomegaly. Bones/joints: Unremarkable. XR/XR chest 1V portable [id number] IMPRESSION: No acute findings.
[2022-06-03] MEDS: aspirin 300 mg Supp PR (08:51)
[2022-06-03] MEDS: insulin lispro 100 unit/1 mL SUBCUT ×4 (08:53→21:57)
[2022-06-03] MEDS: enoxaparin 40 mg/0.4 mL Syringe SUBCUT (10:52)
[2022-06-03 11:29] LABS: Glucose Point of Care 220 mg/dL (70-110)
[2022-06-03] MEDS: pantoprazole 40 mg SDV IVP (13:06)
--- NOTE | 2022-06-03 15:18 | P.PN_ITS ---
Subjective Subjective: Patient was seen and examined this morning, she was seen sitting in the chair, holding up good conversation, right extremity weakness is improving. Has been afebrile for more than 48 hours. Chest x-ray has shown resolution of infiltrates.Hypernatremia is improving. Medications: Reviewed: Yes Medication Review Details: Generic Name Dose Route Start Last Admin Trade Name Freq PRN Reason Stop Dose Admin Acetaminophen 650 mg 06/01/22 04:32 06/01/22 04:59 Acetaminophen 65 0 Mg Supp NJ 650 mg Q6H PRN Administration MILD PAIN OR INCR EASE TEMP Allopurinol 200 mg 05/27/22 09:00 06/03/22 08:54 Allopurinol 100 Mg Tablet PO Not Given DAILY ADAMARIS Amlodipine Besylat e 5 mg 05/27/22 09:00 05/29/22 09:07 Amlodipine 5 Mg Tablet PO Not Given DAILY ADAMARIS Atorvastatin Calci um 80 mg 05/30/22 09:00 06/03/22 08:54 Atorvastatin 40 Mg Tablet PO Not Given DAILY ADAMARIS Celecoxib 200 mg 05/28/22 09:00 06/03/22 08:54 Celecoxib 200 Mg Capsule PO Not Given DAILY ADAMARIS Duloxetine HCl 60 mg 05/27/22 09:00 06/03/22 08:54 Duloxetine 60 Mg Capsule PO Not Given DAILY ADAMARIS Enoxaparin Sodium 40 mg 05/31/22 10:30 06/03/22 10:52 Enoxaparin 40 Mg /0.4 Ml Syringe SUBCUT 40 mg Q24H ADAMARIS Administration Gabapentin 100 mg 05/26/22 18:00 06/03/22 08:54 Gabapentin 100 M g Capsule PO Not Given BID ADAMARIS Piperacillin Sod/T azobactam 50 mls @ 12.5 mls /hr 05/30/22 08:30 06/03/22 13:06 Sod 3.375 gm/ So dium Chloride IV Infused Q8H ADAMARIS Infusion Protocol Dextrose 1,000 mls @ 30 ml s/hr 05/31/22 08:00 06/03/22 09:00 D5w IV 30 mls/hr .Q24H ADAMARIS Infusion Insulin Glargine 30 unit 05/31/22 21:00 06/02/22 20:52 Insulin Glargine 100 Units/1 Ml SUBCUT 30 unit BEDTIME ADAMARIS Administration Insulin Human Lisp ro 0 unit 06/01/22 08:00 06/03/22 13:03 Insulin Lispro 1 00 Unit/1 Ml SUBCUT 8 unit WM&BEDTIME ADAMARIS Administration Protocol Levothyroxine Sodi um 75 mcg 05/27/22 09:00 06/03/22 08:54 Levothyroxine 75 Mcg Tablet PO Not Given DAILY ADAMARIS Lisinopril 20 mg 05/27/22 09:00 05/29/22 09:07 Lisinopril 10 Mg Tablet PO Not Given DAILY [facility] Metoprolol Tartrat e 25 mg 05/26/22 18:00 05/29/22 16:59 Metoprolol Tartr ate 25 Mg Tablet PO Not Given BID ADAMARIS Metoprolol Tartrat e 5 mg 05/30/22 17:11 06/02/22 05:21 Metoprolol Tartr ate 1 Mg/1 Ml Sdv 5 Ml IVP 5 mg Q4H PRN Administration SVT Non-Formulary Medi cation 8 mg 05/26/22 18:00 06/03/22 08:54 Galantamine PO Not Given BID [facility] Pantoprazole Sodiu m 40 mg 05/26/22 13:15 06/03/22 13:06 Pantoprazole 40 Mg Sdv IVP 40 mg Q24H ADAMARIS Administration Senna/Docusate Sod ium 2 tab 05/27/22 18:00 06/03/22 08:55 Sennosides-Docus ate Tablet PO Not Given BID ADAMAR[facility] Ticagrelor 90 mg 05/29/22 18:00 06/03/22 08:55 Ticagrelor 90 Mg Tablet PO Not Given BID [facility] Vitals/I&O/Wt Last Vital Signs Temp 98.0 F 06/03/22 11:34 Pulse 118 H 06/03/22 11:34 Resp 15 06/03/22 11:34 BP 145/66 06/03/22 11:34 Pulse Ox 96 06/03/22 11:34 O2 Del Method 06/03/22 11:34 O2 Flow Rate 1 06/03/22 07:31 06/03/22 06/03/22 06/03/22 06:59 14:59 22:59 Intake Total 1050 / 2150 1345 / 1345 Balance 1050 / 2150 1345 / 1345 Physical Exam Resp: COMMON NORMALS: normal respiratory effort EFFORT & INSPECTION: Yes symmetric chest movement Cardio: COMMON NORMALS: regular rate, regular rhythm, S1 normal heart sound present, S2 normal heart sound present, No gallops present (Cardio), No murmurs present (Cardio), No rub (Cardio) and Peripheral pulses 2+ throughout RATE: regular rate RHYTHM: regular rhythm HEART SOUNDS: S1 normal heart sound present and S2 normal heart sound present PERIPHERAL PULSES: Peripheral pulses 2+ throughout GI: COMMON NORMALS: Normal to inspection, nondistended, normoactive bowel sounds present, Soft to palpation, non-tender, No hepatosplenomegaly present and no masses AUSCULTATION: Yes normoactive bowel sounds PALPATION: Yes Soft to palpation and Yes No hepatosplenomegaly present RECTAL EXAM: deferred Extremity: COMMON NORMALS: no clubbing, cyanosis or edema and no pedal edema Urinary Catheter Management: Vaughn Latex: Cath Placed During This Visit: yes, but has since been removed by the nurse Reason for Continuing Indwelling Catheter: Chronic Indwelling Urinary Catheter on Admission Urinary Catheter Date of Insertion: 05/28/22 Urinary Catheter Time of Insertion: 23:18 Date Urinary Catheter Removed: 05/28/22 Time Urinary Catheter Discontinued: 06:29 Data 06/03/22 03:42 06/03/22 03:42 A&P Assessment and plan (1) Closed intertrochanteric fracture of left femur: Qualifiers: Encounter type: initial encounter Fracture alignment: displaced Qual ified Code(s): S72.142A - Displaced intertrochanteric fracture of left femur, initial encounter for closed fracture (2) History of CVA (cerebrovascular accident): (3) Alzheimer disease: (4) ASHD (arteriosclerotic heart disease): (5) Dyslipidemia: (6) Diabetes: (7) Essential hypertension: (8) UTI (urinary tract infection): (9) Comminuted fracture of left patella: Qualifiers: Encounter type: initial encounter Fracture alignment: displaced Fracture type: closed Qualified Code(s): S82.042A - Displaced comminuted f racture of left patella, initial encounter for closed fracture (10) Hypomagnesemia: (11) Altered mental status: Plan 82-year-old female with past medical history of CVA in October this year, coronary artery disease hypertension diabetes dyslipidemia hypothyroidism, was initially admitted for management of left hip fracture which she sustained while she was letting out her dog, at that time her knees buckled, and she fell, hitting left side of the body against concrete. She was initially admitted for the management of left hip fracture: S/p left hip ORIF, had a complicated hospital course: During which she developed altered mental status secondary to acute CVA: With right-sided weakness, as well as pneumonia. Patient was not a tPA candidate, as she was having ongoing bleeding postsurgical, with dropping H&H, requiring the need for transfusion, last known well was also not well defined. CT head without contrast: Failed to show any acute intracranial pathology, MRI head without contrast: Showed:A few small acute ischemic strokes are present in the left frontoparietal periventricular white matter up to 2.6 cm in size. Patient is currently on aspirin statin, Brilinta, she is allergic to Plavix, initially was on Effient has been discontin ued, given stroke and, age.KLAUS was not pursued, family was advised given history of recurrent stroke in multiple territories, to put her on low-dose, oral anticoagulation, event monitor can be pursued as outpatient, to rule out any underlying A. fib, so far family has agreed with low-dose oral anticoagulation, and monitoring H&H.This can be initiated as outpatient. Patient had also developed: An episode of SVT during hospital stay: For which she had received: Digoxin, IV Cardizem, currently on metoprolol. Blood cultures have been negative so far: MRSA PCR negative, urine culture negative, she was empirically on vancomycin and Zosyn, vancomycin has been discontinued, patient will need to complete 7 to 10 days course of antibiotics. Patient has echo with bubble study from October: Has failed to show any intracardiac shunt.No echo was done during this hospital stay.Patient was also managed for l eft patellar fracture likely old.There is a fracture fragment off the inferior patella which may be old.There is a minimally displaced fracture off the posterior medial tibial. Currently patient has been working with physical therapy, speech is also to evaluate the patient shortly. Altered mental status has resolved. Patient has been accepted at long term for rehab. CODE STATUS: Full code DVT prophylaxis on Lovenox Attestations Medical Necessity Statement*: Patient is to be in hospital for management of, CVA hip fracture awaiting long term placement for rehab. Time Spent in Patient Care: Greater than 35 minutes (>than 50% of time spent in counselling and/or direct pt care on unit) . 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 Care Code [facility] [employer] [facility] [employer] Fwd Exam Expanded Problem Focused Diagnoses Closed intertrochanteric fracture of left femur S72.142A Encounter type: initial encounter Fracture alignment: displaced History of CVA (cerebrovascular accident) Z86.73 Alzheimer disease G30.9; F02.80 ASHD (arteriosclerotic heart disease) I25.10 Dyslipidemia E78.5 Diabetes E11.9 Essential hypertension I10 UTI (urinary tract infection) N39.0 Comminuted fracture of left patella S82.042A Encounter type: initial encounter Fracture alignment: displaced Fracture type: closed Hypomagnesemia E83.42 Altered mental status R41.82
[2022-06-03 17:06] LABS: Glucose Point of Care 222 mg/dL (70-110)
[2022-06-03] MEDS: gabapentin 100 mg Capsule PO (17:09)
[2022-06-03] MEDS: ticagrelor 90 mg Tablet PO (17:09)
[2022-06-03] MEDS: acetaminophen 650 mg Supp PR (19:57)
[2022-06-03 20:16] LABS: Glucose Point of Care 232 mg/dL (70-110)
[2022-06-03] MEDS: HYDROcodone-acetaminophen 5-325 mg Tablet 1 TAB PO (21:03)
[2022-06-03] MEDS: insulin glargine 100 units/1 mL 30 UNIT SUBCUT (21:57)
[2022-06-03] MEDS: dextrose 5% 1,000 ML 30 ML IV (23:35)
[2022-06-04] VITALS (14 sets, daily range): BP systolic 108–158; BP diastolic 60–82; PULSE 72–98; RESP 16–20; TEMP 36.5–37; O2SAT 96–99
[2022-06-04] MEDS: piperacillin-tazobactam 3.375 GM in sodium chloride 0.9% (plus) 50 ML IV ×3 (00:36→16:11)
[2022-06-04 02:07] LABS: Basophils % 0.2 %; Eosinophils # 0.8 10^3/uL (0.0-0.8); Eosinophils % 7.3 %; Hematocrit 29.5 % (37.0-47.0); Hemoglobin 9.3 g/dL (11.5-15.3); Lymphocytes # 2.4 10^3/uL (0.8-4.8); Lymphocytes % 21.4 %; Mean Corpuscular HGB Conc 31.5 g/dL (30.0-36.0); Mean Corpuscular Hemoglobin 30.8 pg (28.0-34.0); Mean Corpuscular Volume 97.7 fl (81-99); Mean Platelet Volume 9.8 fL (7.4-10.4); Monocytes # 0.9 10^3/uL (0.2-0.9); Neutrophils # 7.11 10^3/uL (1.8-7.7); Neutrophils % 62.1 %; Nucleated Red Blood Cells # 0.1 /100WBC; Nucleated Red Blood Cells % 0.4 %; Platelet Count 238 10^3/cmm (130-400); Red Blood Count 3.02 10^6/uL (4.1-5.3); Red Cell Distribution Width 14.6 % (12.1-15.1); White Blood Count 11.4 10^3/uL (4.0-10.0)
[2022-06-04 02:26] LABS: Blood Urea Nitrogen 13 mg/dL (8-23); Calcium 8.7 mg/dL (8.5-10.5); Carbon Dioxide 24 mmol/L (22-29); Chloride 108 mmol/L (98-107); Glucose 98 mg/dL (65-115); Osmolality Calculated 294 mOsm/kg (285-295); Sodium 142 mmol/L (136-145)
[2022-06-04 02:29] LABS: Anion Gap 12.9 (5-19); Potassium 2.9 mmol/L (3.5-5.1)
[2022-06-04] MEDS: potassium chloride ER 20 mEq Tablet 60 MEQ PO (03:13)
[2022-06-04 06:30] LABS: Glucose Point of Care 100 mg/dL (70-110)
[2022-06-04] MEDS: levothyroxine 75 mcg Tablet PO (08:01)
[2022-06-04] MEDS: ticagrelor 90 mg Tablet PO ×2 (08:01→17:06)
[2022-06-04] MEDS: allopurinol 100 mg Tablet 200 MG PO (08:01)
[2022-06-04] MEDS: duloxetine 60 mg Capsule PO (08:02)
[2022-06-04] MEDS: CELEcoxib 200 mg Capsule PO (08:02)
[2022-06-04] MEDS: atorvastatin 40 mg Tablet 80 MG PO (08:02)
[2022-06-04] MEDS: sennosides-docusate Tablet 2 TAB PO ×2 (08:02→17:06)
[2022-06-04] MEDS: gabapentin 100 mg Capsule PO ×2 (08:02→17:06)
[2022-06-04] MEDS: aspirin 81 mg EC Tablet 162 MG PO (08:05)
[2022-06-04] MEDS: morphine 4 mg/mL SDV 1 mL 0.5 MG IVP (08:05)
[2022-06-04] MEDS: enoxaparin 40 mg/0.4 mL Syringe SUBCUT (09:37)
--- NOTE | 2022-06-04 10:10 | PC.SOCIAL ---
Imm update Imm updated at bedside, copy of page 2 provided. Patient verbalized understanding. Copy in chart initialed, dated and timed.
--- NOTE | 2022-06-04 10:15 | PC.NURSE ---
Patient complaint of pain to left hip, oriented X3, confused intermittently, Dr. Marquez notified of no pain medication on orders, last night norco was given, new orders received for ONE time morphine, see MAR for further details.
--- NOTE | 2022-06-04 10:53 | PC.NURSE ---
Received a new order from Dr. Gee to remove mederos catheter and monitor patients urine output prior to discharge to retirement to ensure adequate voiding.
--- NOTE | 2022-06-04 11:03 | P.DS_ITS ---
Discharge Providers Date of Admission: 05/26/22 09:04 Date of Discharge: June 04, 2022 Attending Provider at Admission: Michael Purdy MD Attending Provider at Discharge: Mervat Gee MD Primary Care Provider: Natalie Manzano MD Diagnoses at Discharge Discharge Diagnosis (1) Closed intertrochanteric fracture of left femur: Status: Acute Qualifiers: Encounter type: initial encounter Fracture alignment: displaced Qualified Code(s): S72.142A - Displaced intertrochanteric fracture of left femur, initial encounter for closed fracture (2) History of CVA (cerebrovascular accident): Status: Acute (3) Alzheimer disease: Status: Acute (4) ASHD (arteriosclerotic heart disease): Status: Acute (5) Dyslipidemia: Status: Acute (6) Diabetes: Status: Acute (7) Essential hypertension: Status: Acute (8) UTI (urinary tract infection): Status: Acute (9) Comminuted fracture of left patella: Status: Acute Qualifiers: Encounter type: initial encounter Fracture type: closed Fracture alignment: displaced Qualified Code(s): S82.042A - Displaced comminuted fracture of left patella, initial encounter for closed fracture (10) Hypomagnesemia: Status: Acute (11) Altered mental status: Status: Acute Reason for Visit Reason for Visit: LEFT HIP PAIN S/P FALL Hospital Course Hospital Course 82-year-old female with past medical history of CVA in October this year, coronary artery disease hypertension diabetes dyslipidemia hypothyroidism, was initially admitted for management of left hip fracture which she sustained while she was letting out her dog, at that time her knees buckled, and she fell, hitting left side of the body against concrete.? She was initially admitted for the management of left hip fracture: S/p left hip ORIF on 05/27, had a complicated subsequent hospital course: During which she developed altered mental status secondary to acute CVA: With right-sided weakness, as well as pneumonia. Patient was not a tPA candidate, as she was having ongoing bleeding postsurgical, with dropping H&H, requiring the need for transfusion, last known well was also not well defined.? CT head without contrast: Failed to show any acute intracranial pathology, MRI head without contrast: Showed:A few small acute ischemic strokes are present in the left frontoparietal periventricular white matter up to 2.6 cm in size. Patient is currently on aspirin statin, Brilinta, she is allergic to Plavix, initially was on Effient has been discontinued, given stroke and, age.KLAUS was not pursued, family was advised given history of recurrent stroke in multiple territories, to put her on low- dose, oral anticoagulation, event monitor can be pursued as outpatient, to rule out any underlying A. fib, so far family has agreed with low-dose oral anticoagulation, and monitoring H&H.This can be initiated as outpatient.? Patient had also developed: An episode of SVT during hospital stay: For which she had received: Digoxin, IV Cardizem, currently on metoprolol. Blood cultures have been negative so far: MRSA PCR negative, urine culture negative, she was empirically on vancomycin and Zosyn, vancomycin has been discontinued, She has completed 6 days of iv Zosyn today in additiont o cefazolin perioperatively. Abx have now been disontinued as completed adequate course for pneumonia. Patient has echo with bubble study from October: Has failed to show any intracardiac shunt.No echo was done during this hospital stay for this reason.Patient was also managed for left patellar fracture likely old.There is a fracture fragment off the inferior patella which may be old.There is a minimally displaced fracture off the posterior medial tibial. Currently patient has been working with physical therapy, speech therapy. Recommendations for mechical soft diet wih regular liquids. Altered mental status has resolved. [facility] Being transitioned today. Physical Exam Narrative: General: No acute distress, AO x2-3 HEENT: PERRLA, pupils bilaterally equal and reactive, pallors not present Chest: Normal vesicular breath sounds, no added sounds, equal good air entry bilaterally CVS: S1-S2 regular, no murmurs, no tachycardia, no gallops, no rubs Abdomen: Soft, nontender, no organomegaly, bowel sounds present Urinary Catheter Management: Vaughn Latex: Cath Placed During This Visit: yes, but has since been removed by the nurse Reason for Continuing Indwelling Catheter: Other Urinary Catheter Date of Insertion: 05/28/22 Urinary Catheter Time of Insertion: 23:18 Date Urinary Catheter Removed: 05/28/22 Time Urinary Catheter Discontinued: 06:29 Discharge Data Studies Completed and Pending Completed Studies During Hospitalization Category Date Time Status CT head wo con* [id number] Routine Cat Scan 05/29/22 11:[address] head wo con* [id number] Stat Cat Scan 05/26/22 08:[address] knee LT wo con* [id number] Urgent Cat Scan 05/26/22 19:41 Completed XR cervical spine 3V* [id number] Stat Exams 05/26/22 08:35 Completed XR chest 1V [id number] Stat Exams 05/26/22 08:26 Completed XR chest 1V portable [id number] Routine Exams 06/01/22 07:21 Completed XR chest 1V portable [id number] Routine Exams 06/03/22 06:54 Completed XR chest 1V portable [id number] Stat Exams 05/30/22 05:32 Completed XR hip LT 2-3V wo/w pel* [id number] Routine Exams 05/27/22 Completed XR hip LT 2-3V wo/w pel* [id number] Stat Exams 05/26/22 08:13 Completed XR knee LT 1-2V [id number] Routine Exams 05/26/22 14:42 Completed MR head wo con* [id number] Stat MRI 05/29/22 12:15 Completed Pending at discharge Category Date Time Status BMP [Basic Metabolic Panel] AM LABS Lab 06/05/22 04:00 Ordered CBC Auto Diff [Complete Blood Count w/Auto] AM LABS Lab 06/05/22 04:00 Ordered COVID [SARS Covid-2 Antigen] Routine Lab 06/04/22 10:32 Received Radiology Impressions Cervical Spine X-Ray 05/26/22 08:35 IMPRESSION: No acute abnormality. Knee X-Ray 05/26/22 14:42 IMPRESSION: There is a transverse fracture off the inferior left patella. Knee CT 05/26/22 19:41 IMPRESSION: There is a fracture fragment off the inferior patella which may be old. There is a minimally displaced fracture off the posterior medial tibial plateau which may be acute. If there is desire for further evaluation, a MRI could be performed. Hip/Pelvis X-Ray 05/27/22 00:00 IMPRESSION: 1. Internal orthopedic fixation involving an intertrochanteric fracture of the left hip in satisfactory position for healing. Head CT 05/29/22 11:24 IMPRESSION: 1. No acute intracranial hemorrhage or edema. 2. Moderate atrophy of the cerebrum and cerebellum. 3. Remote RIGHT periventricular white matter infarct. Head MRI 05/29/22 12:15 IMPRESSION: 1. A few small acute ischemic strokes are present in the left frontoparietal periventricular white matter up to 2.6 cm in size. 2. No focal hemorrhage noted. 3. Moderate age-related changes. 4. Old small right CVA. ADDENDUM: 05/29/22 1501 THIS REPORT CONTAINS FINDINGS THAT MAY BE CRITICAL TO PATIENT CARE. 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 Marquez. The findings were acknowledged and understood. Chest X-Ray 06/03/22 06:54 IMPRESSION: No acute findings. Laboratory Results WBC 11.4 10^3/uL (4.0-10.0) H 06/04/22 01:40 RBC 3.02 10^6/uL (4.1-5.3) L 06/04/22 01:40 Hgb 9.3 g/dL (11.5-15.3) L 06/04/22 01:40 Hct 29.5 % (37.0-47.0) L 06/04/22 01:40 MCV 97.7 fl (81-99) 06/04/22 01:40 MCH 30.8 pg (28.0-34.0) 06/04/22 01:40 MCHC 31.5 g/dL (30.0-36.0) 06/04/22 01:40 RDW 14.6 % (12.1-15.1) 06/04/22 01:40 Plt Count 238 10^3/cmm (130-400) 06/04/22 01:40 MPV 9.8 fL (7.4-10.4) 06/04/22 01:40 Neut % (Auto) 62.1 % 06/04/22 01:40 Lymph % (Auto) 21.4 % 06/04/22 01:40 [place] % (Auto) 8.0 % 06/04/22 01:40 Eos % (Auto) 7.3 % 06/04/22 01:40 Baso % (Auto) 0.2 % 06/04/22 01:40 Neut # (Auto) 7.11 10^3/uL (1.8-7.7) 06/04/22 01:40 Lymph # (Auto) 2.4 10^3/uL (0.8-4.8) 06/04/22 01:40 [place] # (Auto) 0.9 10^3/uL (0.2-0.9) 06/04/22 01:40 Eos # (Auto) 0.8 10^3/uL (0.0-0.8) 06/04/22 01:40 Baso # (Auto) 0.0 10^3/uL (0.0-0.1) 06/04/22 01:40 Nucleated RBC % (auto) 0.4 % 06/04/22 01:40 Nucleated RBCs # 0.1 /100WBC 06/04/22 01:40 PT 14.80 SECONDS (12.1-14.9) 05/26/22 10:43 INR 1.13 (0.8-1.2) 05/26/22 10:43 APTT 25.1 SECONDS (23.9-36.7) 05/26/22 10:43 Specimen Type Arterial 05/29/22 17:05 Sample Site Radial, left 05/29/22 17:05 ABG pH 7.42 (7.35-7.45) 05/29/22 17:05 ABG pCO2 41.9 mmHg (35-45) 05/29/22 17:05 ABG pO2 75.1 mmHg (80.0-100.0) L 05/29/22 17:05 ABG HCO3 26.8 mmol/L (22-26) H 05/29/22 17:05 ABG O2 Saturation 95.6 05/29/22 17:05 ABG Base Excess 2.1 mmol/L (-2.0-2.0) H 05/29/22 17:05 [place] Test Pos 05/29/22 17:05 A-a O2 Gradient 9.8 mmHg (5-10) 05/29/22 17:05 Hematocrit 20.7 % (37-47) L 05/29/22 17:05 Hgb O2 Saturation 93.6 % (95-100) L 05/29/22 17:05 Carboxyhemoglobin 1.2 %THgb (0.4-20.1) 05/29/22 17:05 Methemoglobin 0.8 % (0.4-1.5) 05/29/22 17:05 Total Hemoglobin 6.8 g/dL (12-16) L 05/29/22 17:05 Sodium 144.0 mmol/L (131-143) H 05/29/22 17:05 Potassium 4.1 mmol/L (3.5-5.0) 05/29/22 17:05 Glucose 186.0 mg/dL (70-115) H 05/29/22 17:05 Ionized Calcium 1.3 mmol/L (1.1-1.4) 05/29/22 17:05 O2 Delivery Device Nc 05/29/22 17:05 O2 Liters/Min 2.0 % 05/29/22 17:05 FiO2 28.0 % 05/29/22 17:05 Identification Technician ID Gd 05/29/22 17:05 Sodium 142 mmol/L (136-145) 06/04/22 01:40 Potassium 2.9 mmol/L (3.5-5.1) L 06/04/22 01:40 Chloride 108 mmol/L (98-107) H 06/04/22 01:40 Carbon Dioxide 24 mmol/L (22-29) 06/04/22 01:40 Anion Gap 12.9 (5-19) 06/04/22 01:40 BUN 13 mg/dL (8-23) 06/04/22 01:40 Creatinine 0.7 mg/dL (0.5-0.9) 06/04/22 01:40 GFR Calculation Not Reportable 06/04/22 01:40 Glucose 98 mg/dL (65-115) 06/04/22 01:40 POC Glucose 100 mg/dL (70-110) 06/04/22 06:27 Estimat Average Glucose 186 05/26/22 10:43 Hemoglobin A1c 8.1 % (4.0-6.0) H 05/26/22 10:43 Calculated Osmolality 294 mOsm/kg (285-295) 06/04/22 01:40 Calcium 8.7 mg/dL (8.5-10.5) 06/04/22 01:40 Phosphorus 3.2 mg/dL (2.5-4.5) 05/27/22 03:20 Magnesium 1.8 mg/dL (1.7-2.3) 05/28/22 03:55 Total Bilirubin 0.8 mg/dL (0.15-1.2) 05/30/22 05:04 AST 48 U/L (0-32) H 05/30/22 05:04 ALT 13 U/L (0-33) 05/30/22 05:04 Alkaline Phosphatase 79 U/L (35-105) 05/30/22 05:04 Troponin T Baseline 10 ng/L (0-10) 05/26/22 10:43 Troponin T 120 Minute 8.76 ng/L (0-10) 05/26/22 12:15 Delta Troponin T -2.24 ABS# (0-10) L 05/26/22 12:15 Troponin T Hi Sens 6Hr 10.08 ng/L (0-10) H 05/26/22 16:16 Troponin T Hi Sens 6Hr Delta 0.08 ng/L (0-12) 05/26/22 16:16 NT-Pro-B Natriuret Pep 85125 pg/mL (0-450) H 05/31/22 01:27 Total Protein 5.6 g/dL (6.6-8.7) L 05/30/22 05:04 Albumin 2.5 g/dL (3.5-5.2) L 05/30/22 05:04 Globulin 3.1 g/dL (1.3-4.6) 05/30/22 05:04 Triglycerides 216 mg/dL (0-150) H 05/26/22 10:43 Cholesterol 120 mg/dL (0-200) 05/26/22 10:43 LDL Cholesterol, Calc 37 mg/dL (50-129) L 05/26/22 10:43 HDL Cholesterol 40 mg/dL (60-100) L 05/26/22 10:43 LDL/HDL Ratio 0.93 RATIO (0.00-3.22) 05/26/22 10:43 Cholesterol/HDL Ratio 3.00 mg/dL (0.0-4.40) 05/26/22 10:43 Procalcitonin 0.22 ng/mL (0-0.5) 06/01/22 01:24 TSH 2.54 uIU/mL (0.27-4.20) 05/26/22 10:43 TSH 2.61 uIU/mL (0.27-4.20) 05/26/22 10:43 Urine Color Yellow (Yellow) 05/26/22 10:40 Urine Appearance Hazy (CLEAR) A 05/26/22 10:40 Urine pH 5 (5-7) 05/26/22 10:40 Ur Specific [place] 1.020 (1.005-1.030) 05/26/22 10:40 Urine Protein Trace (Negative) 05/26/22 10:40 Urine Glucose (UA) Norm (Normal) 05/26/22 10:40 Urine Ketones 1+ (Negative) H 05/26/22 10:40 Urine Blood Trace (Negative) H 05/26/22 10:40 Urine Nitrate Negative (Negative) 05/26/22 10:40 Urine Bilirubin Neg (Negative) 05/26/22 10:40 Urine Urobilinogen 1 mg/dL (Negative) H 05/26/22 10:40 Ur Leukocyte Esterase 2+ (Negative) H 05/26/22 10:40 Urine RBC 0-4 /hpf (0-2) H 05/26/22 10:40 Urine WBC 40-55 /hpf (0-5) H 05/26/22 10:40 Ur Squamous Epith Cells 0-4 /hpf (0-5) H 05/26/22 10:40 Amorphous Sediment Not Reportable 05/26/22 10:40 Urine Bacteria 3+ /hpf (NONE) H 05/26/22 10:40 Nasal Influ A H1 2009 PCR Not detected (NOT DETECT) 05/30/22 11:20 Adenovirus (PCR) Not detected (NOT DETECT) 05/30/22 11:20 C. pneumoniae DNA (PCR) Not detected (NOT DETECT) 05/30/22 11:20 Coronavirus 229E (PCR) Not detected (NOT DETECT) 05/30/22 11:20 Human Metapneumovir PCR Not detected (NOT DETECT) 05/30/22 11:20 Influenza A (H1) PCR Not detected (NOT DETECT) 05/30/22 11:20 Influenza A (H3) PCR Not detected (NOT DETECT) 05/30/22 11:20 Influenza Type A (PCR) Not detected (NOT DETECT) 05/30/22 11:20 Influenza Type B (PCR) Not detected (NOT DETECT) 05/30/22 11:20 M. pneumoniae (PCR) Not detected (NOT DETECT) 05/30/22 11:20 Parainfluenza 1 (PCR) Not detected (NOT DETECT) 05/30/22 11:20 Parainfluenza 2 (PCR) Not detected (NOT DETECT) 05/30/22 11:20 Parainfluenza 3 (PCR) Not detected (NOT DETECT) 05/30/22 11:20 Parainfluenza 4 (PCR) Not detected (NOT DETECT) 05/30/22 11:20 RSV Type A (PCR) Not detected (NOT DETECT) 05/30/22 11:20 RSV Type B (PCR) Not detected (NOT DETECT) 05/30/22 11:20 Entero/Rhino (PCR) Not detected (NOT DETECT) 05/30/22 11:20 SARS-CoV-2 (PCR) Not detected (NOT DETECT) 05/30/22 11:20 Blood Type A Negative 05/30/22 05:04 Rho(D) Type Negative 05/30/22 05:04 Antibody Screen Negative 05/30/22 05:04 Crossmatch See Detail 05/30/22 05:04 Vitals Last Vital Signs Temp 98.1 F 06/04/22 08:00 Pulse 86 06/04/22 08:00 Resp 16 06/04/22 08:05 BP 158/82 06/04/22 08:00 Pulse Ox 96 06/04/22 08:00 O2 Del Method 06/03/22 15:40 O2 Flow Rate 1 06/03/22 07:31 Discharge Plan Discharge Patient Disposition: Xfer SNF Condition: Stable Prescriptions: New Brilinta 90 mg Tablet 90 mg PO BID 30 Days Qty: 60 0RF Continued gabapentin 100 mg capsule 100 mg PO BID PreserVision AREDS 7,160 unit- 113 mg-100 unit tablet 1 tab PO BID Rx Instructions: administer with AM and PM meals nitroglycerin [Nitrostat] 0.4 mg tablet, sublingual 0.4 mg SUBLINGUAL Q5M PRN (Reason: chest pain) Qty: 25 2RF budesonide [Rhinocort Allergy] 32 mcg/actuation spray,non-aerosol 1 spray intranasal DAILY Qty: 8.43 0RF Rx Instructions: administer into each nostril aspirin [Adult Low Dose Aspirin] 81 mg tablet,delayed release (DR/EC) 81 mg PO DAILY (DME) Wheeled Walker with Seat See Rx Instructions .Route .MEDSUPPLY Qty: 1 0RF Rx Instructions: As directed amlodipine 5 mg tablet 5 mg PO DAILY potassium chloride 8 mEq capsule, extended release 8 meq PO DAILY galantamine 8 mg capsule,ext rel. pellets 24 hr 8 mg PO BID 90 Days Qty: 180 3RF Rx Instructions: administer with breakfast 340 B Januvia 100 mg tablet 100 mg PO DAILY 90 Days Qty: 90 3RF Rx Instructions: 340 B (DME) pen needle, diabetic [TechLITE Pen Needle] 32 gauge x 5/32 needle See Rx Instructions .ROUTE .COMPLEX Qty: 100 0RF Dose Instruction: USE WITH LEVEMIR EVERY NIGHT AT BEDTIME. Rx Instructions: USE WITH LEVEMIR EVERY NIGHT AT BEDTIME. metoprolol tartrate 25 mg tablet See Rx Instructions .ROUTE .COMPLEX Qty: 180 0RF Dose Instruction: TAKE 1 TABLET BY MOUTH TWICE DAILY. Rx Instructions: TAKE 1 TABLET BY MOUTH TWICE DAILY. Levemir FlexTouch U-100 Insuln 100 unit/mL (3 mL) insulin pen See Rx Instructions .ROUTE .COMPLEX Qty: 30 0RF Dose Instruction: INJECT 100 UNITS SUBCUTANEOUS EVERY NIGHT AT BEDTIME. Rx Instructions: INJECT 100 UNITS SUBCUTANEOUS EVERY NIGHT AT BEDTIME. 340 B allopurinol 100 mg tablet 200 mg PO DAILY levothyroxine 75 mcg tablet 75 mcg PO DAILY omeprazole 40 mg capsule,delayed release(DR/EC) 40 mg PO DAILY duloxetine 60 mg capsule,delayed release(DR/EC) 60 mg PO DAILY lisinopril 10 mg tablet 20 mg PO DAILY Qty: 0 0RF atorvastatin 80 mg Tablet 80 mg PO DAILY Discontinued prasugrel 10 mg tablet 10 mg PO DAILY Discharge Orders: Discharge Order (Routine); Ordered 06/04/22 Ordered By: Mervat Gee Referrals: Natalie Manzano MD [Primary Care Provider] - Rebecca Bishop MD [Physician] - 2 weeks Shawna Jimenez FNP [Nurse Practitioner] - 7-10 days (recent CVA, DAPT changed ASA/effient to ASA/BRilinta. Consideration for low dose a/c for recurrent strokes) Discharge Diet: As Directed Discharge Activity: As per PT/OT instructions Discharge Attestations Time Spent in Discharge Care*: greater than 30 min Quality Metrics Clinical Quality Measures [ Cerebrovascular Accident { Contraindication to Antithrombotic: None; antithrombotic prescribed; Contraindication to Anticoagulation: Medical contraindication (low HB ); Contraindication to Statin: None; Statin prescribed;}] 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 Care Code Acute Chg FW DC note Diagnoses Closed intertrochanteric fracture of left femur S72.142A Encounter type: initial encounter Fracture alignment: displaced History of CVA (cerebrovascular accident) Z86.73 Alzheimer disease G30.9; F02.80 ASHD (arteriosclerotic heart disease) I25.10 Dyslipidemia E78.5 Diabetes E11.9 Essential hypertension I10 UTI (urinary tract infection) N39.0 Comminuted fracture of left patella S82.042A Encounter type: initial encounter Fracture type: closed Fracture alignment: displaced Hypomagnesemia E83.42 Altered mental status R41.82
[2022-06-04 11:08] LABS: SARS Covid-2 Antigen negative (Negative)
[2022-06-04 11:10] LABS: Glucose Point of Care 209 mg/dL (70-110)
[2022-06-04] MEDS: insulin lispro 100 unit/1 mL SUBCUT ×3 (12:39→21:53)
[2022-06-04] MEDS: pantoprazole 40 mg SDV IVP (12:39)
--- NOTE | 2022-06-04 15:13 | PC.NURSE ---
New orders received for UA on next urination and flu swab, see ORDERS for further details.
[2022-06-04 15:42] LABS: Influenza A by IFA negative (Negative); Influenza B by IFA negative (Negative)
[2022-06-04] MEDS: morphine 4 mg/mL SDV 1 mL 1 MG IVP ×2 (17:07→23:45)
[2022-06-04 17:19] LABS: Glucose Point of Care 263 mg/dL (70-110)
--- NOTE | 2022-06-04 18:26 | PC.NURSE ---
Patient voided, saturating bed linens, linens changed, kerry care completed, no longer DTV. Unable to obtain Urine catch for UA, patient reports may be able to feel next void in order to catch urine. Will continue to monitor.
[2022-06-04 21:29] LABS: Glucose Point of Care 209 mg/dL (70-110)
[2022-06-04] MEDS: insulin glargine 100 units/1 mL 30 UNIT SUBCUT (21:52)
[2022-06-05] VITALS (8 sets, daily range): BP systolic 118–158; BP diastolic 72–75; PULSE 70–99; RESP 16–18; TEMP 36.4–36.8; O2SAT 94–99
[2022-06-05] MEDS: piperacillin-tazobactam 3.375 GM in sodium chloride 0.9% (plus) 50 ML IV ×4 (01:09→23:53)
[2022-06-05 04:20] LABS: Basophils % 0.2 %; Eosinophils # 0.7 10^3/uL (0.0-0.8); Eosinophils % 6.5 %; Hematocrit 28.5 % (37.0-47.0); Lymphocytes # 1.6 10^3/uL (0.8-4.8); Lymphocytes % 14.9 %; Mean Corpuscular HGB Conc 31.6 g/dL (30.0-36.0); Mean Corpuscular Hemoglobin 30.3 pg (28.0-34.0); Mean Platelet Volume 9.9 fL (7.4-10.4); Monocytes # 0.6 10^3/uL (0.2-0.9); Monocytes % 5.9 %; Neutrophils # 7.44 10^3/uL (1.8-7.7); Neutrophils % 71.6 %; Nucleated Red Blood Cells % 0.2 %; Platelet Count 228 10^3/cmm (130-400); Red Blood Count 2.97 10^6/uL (4.1-5.3); Red Cell Distribution Width 14.9 % (12.1-15.1); White Blood Count 10.4 10^3/uL (4.0-10.0)
[2022-06-05 04:40] LABS: Anion Gap 11.9 (5-19); Blood Urea Nitrogen 10 mg/dL (8-23); Calcium 8.6 mg/dL (8.5-10.5); Carbon Dioxide 25 mmol/L (22-29); Glucose 74 mg/dL (65-115); Osmolality Calculated 294 mOsm/kg (285-295); Sodium 143 mmol/L (136-145)
[2022-06-05 04:56] LABS: Chloride 107 mmol/L (98-107)
[2022-06-05 05:33] LABS: Potassium 2.9 mmol/L (3.5-5.1)
[2022-06-05] MEDS: lidocaine 1% 5 ML in potassium chloride premix 100 ML 25 ML IV (06:23)
[2022-06-05 06:31] LABS: Glucose Point of Care 91 mg/dL (70-110)
--- NOTE | 2022-06-05 08:26 | PHA.FALL ---
A Pharmacy Consult Was Conducted For Ivelisse Gardner Due To: Pina Fall Scale Risk Level: High Fall Risk On 06/05/22 07:57 And A Medication Fall Risk Score Greater Than 10. The Recommendations Are As Follows: Major recommendation need to lower dose of Aspirin... Concomitant ticagrelor use with maintenance doses of aspirin above 100 mg/day has been shown to decreases the effectiveness of ticagrelor. May need to assess the need for multiple hypertensive medications (lisinopril, amlodipine, metoprolol tartrate) Pt is also on multiple medications that can lead to increased risk of bleeding (celebrex daily, Aspirin 162mg daily, Lovenox 40mg daily, Brilinta 80mg BID)
[2022-06-05] MEDS: CELEcoxib 200 mg Capsule PO (09:20)
[2022-06-05] MEDS: levothyroxine 75 mcg Tablet PO (09:20)
[2022-06-05] MEDS: aspirin 81 mg EC Tablet 162 MG PO (09:20)
[2022-06-05] MEDS: allopurinol 100 mg Tablet 200 MG PO (09:20)
[2022-06-05] MEDS: ticagrelor 90 mg Tablet PO ×2 (09:20→17:20)
[2022-06-05] MEDS: sennosides-docusate Tablet 2 TAB PO ×2 (09:21→17:20)
[2022-06-05] MEDS: atorvastatin 40 mg Tablet 80 MG PO (09:21)
[2022-06-05] MEDS: gabapentin 100 mg Capsule PO ×2 (09:21→17:20)
[2022-06-05] MEDS: duloxetine 60 mg Capsule PO (09:21)
[2022-06-05] MEDS: dextrose 5% 1,000 ML 30 ML IV (09:34)
[2022-06-05] MEDS: potassium chloride ER 20 mEq Tablet 40 MEQ PO (09:39)
[2022-06-05] MEDS: enoxaparin 40 mg/0.4 mL Syringe SUBCUT (09:39)
[2022-06-05 12:17] LABS: Glucose Point of Care 205 mg/dL (70-110)
[2022-06-05] MEDS: insulin lispro 100 unit/1 mL SUBCUT ×2 (12:47→22:34)
[2022-06-05] MEDS: pantoprazole 40 mg SDV IVP (12:48)
[2022-06-05] MEDS: metoprolol tartrate 25 mg Tablet 12.5 MG PO ×2 (13:44→17:20)
--- NOTE | 2022-06-05 14:21 | PM.PN ---
Subjective Subjective: Patient was planned to be discharged yesterday, however her daughter did not agree with the discharge plan and contested the discharge. Patient remains afebrile since 1225. Hypokalemic today. Feels symptomatically improving. She is noted to be sitting in bedside chair and eating her lunch at this time. States she is feeling better. is at bedside. No acute interim events. Hemodynamically stable. Medications: Reviewed: Yes Medication Review Details: Generic Name Dose Route Start Last Admin Trade Name Freq PRN Reason Stop Dose Admin Acetaminophen 650 mg 06/01/22 04:32 06/01/22 04:59 Acetaminophen 65 0 Mg Supp [place] 650 mg Q6H PRN Administration MILD PAIN OR INCR EASE TEMP Allopurinol 200 mg 05/27/22 09:00 06/03/22 08:54 Allopurinol 100 Mg Tablet PO Not Given DAILY [facility] Amlodipine Besylat e 5 mg 05/27/22 09:00 05/29/22 09:07 Amlodipine 5 Mg Tablet PO Not Given DAILY [facility] Atorvastatin Calci um 80 mg 05/30/22 09:00 06/03/22 08:54 Atorvastatin 40 Mg Tablet PO Not Given DAILY [facility] Celecoxib 200 mg 05/28/22 09:00 06/03/22 08:54 Celecoxib 200 Mg Capsule PO Not Given DAILY [facility] Duloxetine HCl 60 mg 05/27/22 09:00 06/03/22 08:54 Duloxetine 60 Mg Capsule PO Not Given DAILY [facility] Enoxaparin Sodium 40 mg 05/31/22 10:30 06/03/22 10:52 Enoxaparin 40 Mg /0.4 Ml Syringe SUBCUT 40 mg Q24H [facility] Administration Gabapentin 100 mg 05/26/22 18:00 06/03/22 08:54 Gabapentin 100 M g Capsule PO Not Given BID [facility] Piperacillin Sod/T azobactam 50 mls @ 12.5 mls /hr 05/30/22 08:30 06/03/22 13:06 Sod 3.375 gm/ So dium Chloride IV Infused Q8H [facility] Infusion Protocol Dextrose 1,000 mls @ 30 ml s/hr 05/31/22 08:00 06/03/22 09:00 D5w IV 30 mls/hr .Q24H [facility] Infusion Insulin Glargine 30 unit 05/31/22 21:00 06/02/22 20:52 Insulin Glargine 100 Units/1 Ml SUBCUT 30 unit BEDTIME [facility] Administration Insulin Human Lisp ro 0 unit 06/01/22 08:00 06/03/22 13:03 Insulin Lispro 1 00 Unit/1 Ml SUBCUT 8 unit WM&BEDTIME [facility] Administration Protocol Levothyroxine Sodi um 75 mcg 05/27/22 09:00 06/03/22 08:54 Levothyroxine 75 Mcg Tablet PO Not Given DAILY [facility] Lisinopril 20 mg 05/27/22 09:00 05/29/22 09:07 Lisinopril 10 Mg Tablet PO Not Given DAILY [facility] Metoprolol Tartrat e 25 mg 05/26/22 18:00 05/29/22 16:59 Metoprolol Tartr ate 25 Mg Tablet PO Not Given BID [facility] Metoprolol Tartrat e 5 mg 05/30/22 17:11 06/02/22 05:21 Metoprolol Tartr ate 1 Mg/1 Ml Sdv 5 Ml IVP 5 mg Q4H PRN Administration SVT Non-Formulary Medi cation 8 mg 05/26/22 18:00 06/03/22 08:54 Galantamine PO Not Given BID [facility] Pantoprazole Sodiu m 40 mg 05/26/22 13:15 06/03/22 13:06 Pantoprazole 40 Mg Sdv IVP 40 mg Q24H [facility] Administration Senna/Docusate Sod ium 2 tab 05/27/22 18:00 06/03/22 08:55 Sennosides-Docus ate Tablet PO Not Given BID [facility] Ticagrelor 90 mg 05/29/22 18:00 06/03/22 08:55 Ticagrelor 90 Mg Tablet PO Not Given BID [facility] Vitals/I&O/Wt Last Vital Signs Temp 97.5 F L 06/05/22 12:00 Pulse 99 06/05/22 12:00 Resp 16 06/05/22 12:00 BP 119/74 06/05/22 12:00 Pulse Ox 98 06/05/22 12:00 O2 Del Method 06/05/22 12:00 O2 Flow Rate 1 06/03/22 07:31 06/04/22 06/05/22 06/05/22 22:59 06:59 14:59 Intake Total 530 / 1060 50 / 1110 1615 / 1615 Balance 530 / 410 50 / 460 1615 / 1615 Physical Exam Narrative: General: No acute distress, AO x2-3 HEENT: PERRLA, pupils bilaterally equal and reactive, pallors not present Chest: Normal vesicular breath sounds, no added sounds, equal good air entry bilaterally CVS: S1-S2 regular, no murmurs, no tachycardia, no gallops, no rubs Abdomen: Soft, nontender, no organomegaly, bowel sounds present Urinary Catheter Management: Vaughn Latex: Cath Placed During This Visit: yes, but has since been removed by the nurse Reason for Continuing Indwelling Catheter: Other Urinary Catheter Date of Insertion: 05/28/22 Urinary Catheter Time of Insertion: 23:18 Date Urinary Catheter Removed: 05/28/22 Time Urinary Catheter Discontinued: 06:29 Data 06/05/22 03:32 06/05/22 03:32 Micro: Microbiology 05/30/22 09:06 Blood Culture - Final Blood NO GROWTH AFTER 5 DAYS 05/30/22 09:02 Blood Culture - Final Blood NO GROWTH AFTER 5 DAYS A&P Assessment and plan (1) Closed intertrochanteric fracture of left femur: Qualifiers: Encounter type: initial encounter Fracture alignment: displaced Qualified Code(s): S72.142A - Displaced intertrochanteric fracture of left femur, initial encounter for closed fracture (2) History of CVA (cerebrovascular accident): (3) Alzheimer disease: (4) ASHD (arteriosclerotic heart disease): (5) Dyslipidemia: (6) Diabetes: (7) Essential hypertension: (8) UTI (urinary tract infection): (9) Comminuted fracture of left patella: Qualifiers: Encounter type: initial encounter Fracture type: closed Fracture alignment: displaced Qualified Code(s): S82.042A - Displaced comminuted fracture of left patella, initial encounter for closed fracture (10) Hypomagnesemia: (11) Altered mental status: Plan 82-year-old female with past medical history of CVA in October this year, coronary artery disease hypertension diabetes dyslipidemia hypothyroidism, was initially admitted for management of left hip fracture which she sustained while she was letting out her dog, at that time her knees buckled, and she fell, hitting left side of the body against concrete. She was initially admitted for the management of left hip fracture: S/p left hip ORIF, had a complicated hospital course: During which she developed altered mental status secondary to acute CVA: With right-sided weakness, as well as pneumonia. Patient was not a tPA candidate, as she was having ongoing bleeding postsurgical, with dropping H&H, requiring the need for transfusion, last known well was also not well defined. CT head without contrast: Failed to show any acute intracranial pathology, MRI head without contrast: Showed:A few small acute ischemic strokes are present in the left frontoparietal periventricular white matter up to 2.6 cm in size. Patient is currently on aspirin statin, Brilinta, she is allergic to Plavix, initially was on Effient has been discontinued, given stroke and, age.KLAUS was not pursued, family was advised given history of recurrent stroke in multiple territories, to put her on low-dose, oral anticoagulation, event monitor can be pursued as outpatient, to rule out any underlying A. fib, so far family has agreed with low-dose oral anticoagulation, and monitoring H&H.This can be initiated as outpatient. Patient had also developed: An episode of SVT during hospital stay: For which she had received: Digoxin, IV Cardizem, currently on metoprolol. Patient was on metoprolol 5 mg IV every 4 hours as needed, resumed today on metoprolol 12.5 mg p.o. twice daily, will plan to uptitrate as needed. Blood cultures have been negative so far: MRSA PCR negative, urine culture negative, she was empirically on vancomycin and Zosyn, vancomycin for pneumonia. Vancomycin has been discontinued, further Zosyn can be discontinued on discharge as she has completed an adequate course. Chest x-ray taken yesterday shows interval improvement. No current leukocytosis. Vaughn has been removed on 06/04/2022 when patient is able to void. UA was positive on 05/26/2022, urine culture remain negative. Patient has echo with bubble study from October: Has failed to show any intracardiac shunt.No echo was done during this hospital stay.Patient was also managed for left patellar fracture likely old.There is a fracture fragment off the inferior patella which may be old.There is a minimally displaced fracture off the posterior medial tibial. Patient has been evaluated by physical therapy OT and speech therapy during course of admission. Altered mental status has resolved. Patient has been accepted at long-term for rehab. Overall acute medical issues are currently optimized. Patient will benefit for continued skilled rehab for which transition to SNF is being sought. Her daughter not agreeing to the discharge plan. Has contested her discharge with Medicare. We are waiting to hear back. Hypokalemia today, has been repleted with 60meq po CODE STATUS: Full code DVT prophylaxis on Lovenox Attestations Medical Necessity Statement*: awaiting to hear back from patient's insurance regarding discharge appeal. 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 Care Code Acute Coordinator Of Evaluation for g Fwd Diagnoses Closed intertrochanteric fracture of left femur S72.142A Encounter type: initial encounter Fracture alignment: displaced History of CVA (cerebrovascular accident) Z86.73 Alzheimer disease G30.9; F02.80 ASHD (arteriosclerotic heart disease) I25.10 Dyslipidemia E78.5 Diabetes E11.9 Essential hypertension I10 UTI (urinary tract infection) N39.0 Comminuted fracture of left patella S82.042A Encounter type: initial encounter Fracture type: closed Fracture alignment: displaced Hypomagnesemia E83.42 Altered mental status R41.82
[2022-06-05] MEDS: morphine 4 mg/mL SDV 1 mL 1 MG IVP (14:39)
--- NOTE | 2022-06-05 16:34 | P.PN_ITS ---
Subjective Subjective: Patient was planned to be discharged yesterday, however her daughter did not agree with the discharge plan and contested the discharge. Plans are now being made for her discharge to care home tomorrow. She has improved significantly and is awake alert and oriented. Medications: Reviewed: Yes Medication Review Details: Generic Name Dose Route Start Last Admin Trade Name Freq PRN Reason Stop Dose Admin Acetaminophen 650 mg 06/01/22 04:32 06/01/22 04:59 Acetaminophen 65 0 Mg Supp [place] 650 mg Q6H PRN Administration MILD PAIN OR INCR EASE TEMP Allopurinol 200 mg 05/27/22 09:00 06/03/22 08:54 Allopurinol 100 Mg Tablet PO Not Given DAILY [facility] Amlodipine Besylat e 5 mg 05/27/22 09:00 05/29/22 09:07 Amlodipine 5 Mg Tablet PO Not Given DAILY [facility] Atorvastatin Calci um 80 mg 05/30/22 09:00 06/03/22 08:54 Atorvastatin 40 Mg Tablet PO Not Given DAILY [facility] Celecoxib 200 mg 05/28/22 09:00 06/03/22 08:54 Celecoxib 200 Mg Capsule PO Not Given DAILY [facility] Duloxetine HCl 60 mg 05/27/22 09:00 06/03/22 08:54 Duloxetine 60 Mg Capsule PO Not Given DAILY [facility] Enoxaparin Sodium 40 mg 05/31/22 10:30 06/03/22 10:52 Enoxaparin 40 Mg /0.4 Ml Syringe SUBCUT 40 mg Q24H [facility] Administration Gabapentin 100 mg 05/26/22 18:00 06/03/22 08:54 Gabapentin 100 M g Capsule PO Not Given BID [facility] Piperacillin Sod/T azobactam 50 mls @ 12.5 mls /hr 05/30/22 08:30 06/03/22 13:06 Sod 3.375 gm/ So dium Chloride IV Infused Q8H [facility] Infusion Protocol Dextrose 1,000 mls @ 30 ml s/hr 05/31/22 08:00 06/03/22 09:00 D5w IV 30 mls/hr .Q24H [facility] In[facility] Insulin Glargine 30 unit 05/31/22 21:00 06/02/22 20:52 Insulin Glargine 100 Units/1 Ml SUBCUT 30 unit BEDTIME [facility] Administration Insulin Human Lisp ro 0 unit 06/01/22 08:00 06/03/22 13:03 Insulin Lispro 1 00 Unit/1 Ml SUBCUT 8 unit WM&BEDTIME [facility] Administration Protocol Levothyroxine Sodi um 75 mcg 05/27/22 09:00 06/03/22 08:54 Levothyroxine 75 Mcg Tablet PO Not Given DAILY [facility] Lisinopril 20 mg 05/27/22 09:00 05/29/22 09:07 Lisinopril 10 Mg Tablet PO Not Given DAILY [facility] Metoprolol Tartrat e 25 mg 05/26/22 18:00 05/29/22 16:59 Metoprolol Tartr ate 25 Mg Tablet PO Not Given BID [facility] Metoprolol Tartrat e 5 mg 05/30/22 17:11 06/02/22 05:21 Metoprolol Tartr ate 1 Mg/1 Ml Sdv 5 Ml IVP 5 mg Q4H PRN Administration SVT Non-Formulary Medi cation 8 mg 05/26/22 18:00 06/03/22 08:54 Galantamine PO Not Given BID [facility] Pantoprazole Sodiu m 40 mg 05/26/22 13:15 06/03/22 13:06 Pantoprazole 40 Mg Sdv IVP 40 mg Q24H [facility] Administration Senna/Docusate Sod ium 2 tab 05/27/22 18:00 06/03/22 08:55 Sennosides-Docus ate Tablet PO Not Given BID [facility] Ticagrelor 90 mg 05/29/22 18:00 06/03/22 08:55 Ticagrelor 90 Mg Tablet PO Not Given BID [facility] Vitals/I&O/Wt Last Vital Signs Temp 97.6 F 06/05/22 15:38 Pulse 90 06/05/22 15:38 Resp 18 06/05/22 15:38 BP 118/72 06/05/22 15:38 Pulse Ox 99 06/05/22 15:38 O2 Del Method 06/05/22 15:38 O2 Flow Rate 1 06/03/22 07:31 06/05/22 06/05/22 06/05/22 06:59 14:59 22:59 Intake Total 50 / 1110 1615 / 1615 Balance 50 / 460 1615 / 1615 Physical Exam Const: COMMON NORMALS: no acute distress, patient oriented x3 and alert GENERAL APPEARANCE: cooperative and comfortable NUTRITIONAL APPEARANCE: overweight ORIENTATION/CONSCIOUSNESS: Yes awake HENMT: COMMON NORMALS: normocephalic and atraumatic HEAD & SCALP: normocephalic and atraumatic Eye: GENERAL EYE: appearance normal, both eyes and all related structures Chest: COMMONS NORMALS: normal inspection of the chest Resp: COMMON NORMALS: normal respiratory effort EFFORT & INSPECTION: Yes able to speak in complete sentences and Yes symmetric chest movement Extremity: LEFT LOWER EXTREMITY: Yes hip joint (Dressing is dry and intact.) Left hip: Yes inspection (No significant swelling.), Yes palpation (Minimal discomfort.) and Yes neurovascular exam (No evidence of DVT) Neuro: COMMON NORMALS: patient oriented x3 SENSORIUM/ORIENTATION: Yes alert Psych: COMMON NORMALS: mental status grossly normal APPEARANCE: Yes grossly normal ATTITUDE: Yes calm and Yes engaged ATTENTION/CONCENTRATION: Yes attention grossly intact Skin: COMMON NORMALS: no rashes or lesions noted GENERAL SKIN EXAM: no rashes or lesions noted Urinary Catheter Management: Vaughn Latex: Cath Placed During This Visit: yes, but has since been removed by the nurse Reason for Continuing Indwelling Catheter: Other Urinary Catheter Date of Insertion: 05/28/22 Urinary Catheter Time of Insertion: 23:18 Date Urinary Catheter Removed: 05/28/22 Time Urinary Catheter Discontinued: 06:29 Data 06/05/22 03:32 06/05/22 03:32 A&P Assessment and plan (1) Closed intertrochanteric fracture of left femur: This 82-year-old woman with known medical history of CVA this spring, diabetes, essential hypertension, dyslipidemia, and hypothyroidism presented through the emergency department today after a fall at home. She got up to let out the dog, and when she let the dog back in, she fell onto her left knee and left hip. Initial imaging studies in the emergency department demonstrated a comminuted displaced angulated intertrochanteric left hip fracture, and the patient was admitted for definitive treatment. Additionally, the patient has a remote patella fracture which causes giving way of her knee. I discussed with the family that we will address this fracture over a longer term when she has proceeded with rehab after her hip fracture. During this hospitalization, the patient has been diagnosed with a CVA. Patient has improved significantly since I last saw her. She is talkative, awake, alert, and oriented. Plans are made for her discharge to skilled facility, hopefully tomorrow. Qualifiers: Encounter type: initial encounter Fracture alignment: displaced Qualified Code(s): S72.142A - Displaced intertrochanteric fracture of left femur, initial encounter for closed fracture (2) Comminuted fracture of left patella: This fracture appears more remote than acute. Qualifiers: Encounter type: initial encounter Fracture type: closed Fracture alignment: displaced Qualified Code(s): S82.042A - Displaced comminuted fra cture of left patella, initial encounter for closed fracture (3) Altered mental status: New findings on MRI involving the left side with previous imaging demonstrating a right-sided CVA (4) History of CVA (cerebrovascular accident): Attestations Medical Necessity Statement*: Per primary service. 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 Care Code Acute Back Up Scan Coordinator for Fabiola Chauhan Diagnoses Closed intertrochanteric fracture of left femur S72.142A Encounter type: initial encounter Fracture alignment: displaced Comminuted fracture of left patella S82.042A Encounter type: initial encounter Fracture type: closed Fracture alignment: displaced Altered mental status R41.82 History of CVA (cerebrovascular accident) Z86.73
[2022-06-05 17:29] LABS: Glucose Point of Care 120 mg/dL (70-110)
[2022-06-05] MEDS: TRAMadol 50 mg Tablet PO (20:02)
[2022-06-05 21:57] LABS: Glucose Point of Care 316 mg/dL (70-110)
[2022-06-05] MEDS: insulin glargine 100 units/1 mL 30 UNIT SUBCUT (22:34)
[2022-06-06] VITALS: BP 151/78; PULSE 76; RESP 17; TEMP 36.7; O2SAT 95
--- NOTE | 2022-06-06 01:21 | PC.NURSE ---
ROOM CHANGE Pt moved to room 250-2 due to need for a male pt bed. All belongings with pt
[2022-06-06 03:27] VITALS: BP 138/73; PULSE 75; RESP 16; TEMP 36.4; O2SAT 97
[2022-06-06] MEDS: TRAMadol 50 mg Tablet PO ×2 (04:02→09:31)
[2022-06-06 04:24] LABS: Basophils % 0.3 %; Eosinophils # 0.8 10^3/uL (0.0-0.8); Eosinophils % 7.6 %; Hematocrit 29.5 % (37.0-47.0); Hemoglobin 9.2 g/dL (11.5-15.3); Lymphocytes # 1.7 10^3/uL (0.8-4.8); Lymphocytes % 16.8 %; Mean Corpuscular HGB Conc 31.2 g/dL (30.0-36.0); Mean Corpuscular Hemoglobin 30.2 pg (28.0-34.0); Mean Corpuscular Volume 96.7 fl (81-99); Mean Platelet Volume 10.1 fL (7.4-10.4); Monocytes # 0.7 10^3/uL (0.2-0.9); Monocytes % 6.9 %; Neutrophils # 6.95 10^3/uL (1.8-7.7); Neutrophils % 67.4 %; Nucleated Red Blood Cells % 0 %; Platelet Count 242 10^3/cmm (130-400); Red Blood Count 3.05 10^6/uL (4.1-5.3); Red Cell Distribution Width 15.5 % (12.1-15.1); White Blood Count 10.3 10^3/uL (4.0-10.0)
[2022-06-06 04:49] LABS: Alanine Aminotransferase 83 U/L (0-33); Albumin Level 2.8 g/dL (3.5-5.2); Alkaline Phosphatase 119 U/L (35-105); Anion Gap 11.6 (5-19); Aspartate Amino Transferase 41 U/L (0-32); Blood Urea Nitrogen 9 mg/dL (8-23); Calcium 8.6 mg/dL (8.5-10.5); Carbon Dioxide 27 mmol/L (22-29); Chloride 108 mmol/L (98-107); Globulin 2.8 g/dL (1.3-4.6); Glucose 101 mg/dL (65-115); Osmolality Calculated 295 mOsm/kg (285-295); Potassium 3.6 mmol/L (3.5-5.1); Sodium 143 mmol/L (136-145); Total Bilirubin 0.9 mg/dL (0.15-1.2); Total Protein 5.6 g/dL (6.6-8.7)
[2022-06-06 05:36] VITALS: PULSE 73
[2022-06-06 06:26] LABS: Glucose Point of Care 101 mg/dL (70-110)
[2022-06-06 08:00] VITALS: BP 157/77; PULSE 79; RESP 16; TEMP 36.6; O2SAT 97
[2022-06-06] MEDS: piperacillin-tazobactam 3.375 GM in sodium chloride 0.9% (plus) 50 ML IV (09:29)
[2022-06-06] MEDS: atorvastatin 40 mg Tablet 80 MG PO (09:30)
[2022-06-06] MEDS: levothyroxine 75 mcg Tablet PO (09:30)
[2022-06-06] MEDS: aspirin 81 mg EC Tablet 162 MG PO (09:30)
[2022-06-06] MEDS: duloxetine 60 mg Capsule PO (09:30)
[2022-06-06] MEDS: CELEcoxib 200 mg Capsule PO (09:30)
[2022-06-06] MEDS: gabapentin 100 mg Capsule PO (09:30)
[2022-06-06] MEDS: metoprolol tartrate 25 mg Tablet 12.5 MG PO (09:31)
[2022-06-06] MEDS: allopurinol 100 mg Tablet 200 MG PO (09:31)
[2022-06-06] MEDS: ticagrelor 90 mg Tablet PO (09:31)
--- NOTE | 2022-06-06 09:32 | PC.CHAP ---
Pastoral Care Encounter/Spiritual Assessment Type of Contact [] Declined asic design engineer visit [] Patient/Family/Request visit [] Outpatient visit [] Follow-up visit [] Physician referral [] Code/Alert [x] Routine visit [] Staff referral [] Actively dying [] Patient sleeping [] Family support [] [] Out of room [] Palliative care [] [] Receiving care in room [] Pre-surgical visit [] Trauma [] Long length of stay [] ICU visit [] Other: Relational/Emotional Strength [] Patient feels connected with others/family/visitors/staff [] Distress [] Loneliness/isolation [] Abandonment Spirituality of Patient [x] Person of Carol [] Attends Confucianism of their Carol [] Believes in Prayer [] Reads Bible or Orthodox materials [] There are Spiritual issues to be addressed Chemical Engineering Intern Interventions [x] Prayer [x] Active listening [x] Non-anxious presence [x] Spiritual/emotional support [] Crisis/trauma care [] Spiritual counseling [] Bereavement support [] Provided bereavement packet [] Provided Bible/devotional materials [] Provided toy/stuffed animal, coloring book to patient or family member [] Provided Communion [] Anointing/[place] [] Salvation [x] Completed spiritual assessment [] Other: Impact on Illness or Injury [] Angry [] Fearful [] Anxious [] Often cries [] Exhaustion [] Unable to work [] Unable to attend anglican [] Unable to walk/stand [] Unable to read [] Unable to drive [] Unable to eat/drink [] Unable to sleep [] Unable to be with family [] Patient intubated [] Other: Summary Pt's son was present for visit. Pt lives with who is in good health. Daughter also lives near by. Pt is of the [employer] carol. Time spent with patient 10m
[2022-06-06] MEDS: enoxaparin 40 mg/0.4 mL Syringe SUBCUT (09:35)
[2022-06-06] MEDS: sennosides-docusate Tablet 2 TAB PO (09:35)
--- NOTE | 2022-06-06 11:26 | PHA.FALL ---
A Pharmacy Consult Was Conducted For Ivelisse Gardner Due To: Pina Fall Scale Risk Level: High Fall Risk On 06/06/22 07:33 And A Medication Fall Risk Score Greater Than 10. The Recommendations Are As Follows: insulin - Beers: Higher risk of hypoglycemia without improvement in hyperglycemia management regardless of care setting The [place] [facility] [employer] has compiled a list of High-Risk Medications Attributed to Falls in Older Adults and classified according to the following list Medications which cause/contribute to: 1 = sedation/fatigue/lethargy 2 = decreased alertness 3 = postural/orthostatic hypotension 4 = dizziness 5 = decreased neuromuscular function/ataxia 6 = decreased memory/cognitive impairment 7 = blurred vision 8 = confusion 9 = arrhythmias 10 = syncope 11 = anemia amlodipine - 1,3,4,5,7,9,10 gabapentin - 1,3,4,5,6,7,8,10 lisinopril - 1,3,4,5,8,9 metoprolol - 1,2,3,4,5,9,10 Morphine - 1,2,3,4,5,6,7,8,9,10 ADVERSE EFFECTS RELATED TO PRODUCTS NOT INCLUDED ABOVE tramadol : Neurologic: Dizziness (7% to 33% ), Somnolence (4% to 25% ) Galatamine: Neurologic: Dizziness (7.5% )
[2022-06-06 11:45] LABS: Glucose Point of Care 189 mg/dL (70-110)
[2022-06-06 11:48] VITALS: BP 117/66; PULSE 75; RESP 17; TEMP 36.5; O2SAT 98
[2022-06-06] MEDS: insulin lispro 100 unit/1 mL SUBCUT (11:49)
--- NOTE | 2022-06-06 13:25 | P.DS_ITS ---
Discharge Providers Date of Admission: 05/26/22 09:04 Date of Discharge: June 06, 2022 Attending Provider at Admission: Michael Purdy MD Attending Provider at Discharge: Mervat Gee MD Primary Care Provider: Natalie Manzano MD Diagnoses at Discharge Discharge Diagnosis (1) Closed intertrochanteric fracture of left femur: Status: Acute Qualifiers: Encounter type: initial encounter Fracture alignment: displaced Qualified Code(s): S72.142A - Displaced intertrochanteric fracture of left femur, initial encounter for closed fracture (2) Comminuted fracture of left patella: Status: Acute Qualifiers: Encounter type: initial encounter Fracture type: closed Fracture alignment: displaced Qualified Code(s): S82.042A - Displaced comminuted fracture of left patella, initial encounter for closed fracture (3) Altered mental status: Status: Acute (4) History of CVA (cerebrovascular accident): Status: Acute Reason for Visit Reason for Visit: LEFT HIP PAIN S/P FALL Hospital Course Hospital Course 82-year-old female with past medical history of CVA in October this year, coronary artery disease hypertension diabetes dyslipidemia hypothyroidism, was initially admitted for management of left hip fracture which she sustained while she was letting out her dog, at that time her knees buckled, and she fell, hitting left side of the body against concrete.? She was initially admitted for the management of left hip fracture: S/p left hip ORIF on 05/27, had a complicated subsequent hospital course: During which she developed altered mental status secondary to acute CVA: With right-sided weakness, as well as pneumonia. Patient was not a tPA candidate, as she was having ongoing bleeding postsurgical, with dropping H&H, requiring the need for transfusion, last known well was also not well defined.? CT head without contrast: Failed to show any acute intracranial pathology, MRI head without contrast: Showed:A few small acute ischemic strokes are present in the left frontoparietal periventricular white matter up to 2.6 cm in size. Patient is currently on aspirin statin, Brilinta, she is allergic to Plavix, initially was on Effient has been discontinued, given stroke and, age.KLAUS was not pursued, family was advised given history of recurrent stroke in multiple territories, to put her on low- dose, oral anticoagulation, event monitor can be pursued as outpatient, to rule out any underlying A. fib, so far family has agreed with low-dose oral anticoagulation, and monitoring H&H.This can be initiated as outpatient.? Patient had also developed: An episode of SVT during hospital stay: For which she had received: Digoxin, IV Cardizem, currently on metoprolol. Blood cultures have been negative so far: MRSA PCR negative, urine culture negative, she was empirically on vancomycin and Zosyn, vancomycin has been discontinued, She has completed 6 days of iv Zosyn today in additiont o cefazolin perioperatively. Abx have now been disontinued as completed adequate course for pneumonia. Patient has echo with bubble study from October: Has failed to show any intracardiac shunt.No echo was done during this hospital stay for this reason.Patient was also managed for left patellar fracture likely old.There is a fracture fragment off the inferior patella which may be old.There is a minimally displaced fracture off the posterior medial tibial. Currently patient has been working with physical therapy, speech therapy. Recommendations for mechical soft diet wih regular liquids. Altered mental status has resolved. Patient has been accepted at assisted for rehab. Patient's discharge was planned for 06/04/2022, however family was dissatisfied with the discharge plan and had contested the discharge. Patient continues to feel well. She is alert awake oriented x3. Able to have a full conversation. She has been afebrile since June 03, 2022. White count has normalized. Hemoglobin stable at 9.2. Vaughn has been removed. She is working with physical therapy. She is being discharged today in stable condition. Since last discharge summary changes made to her medications include resuming metoprolol at 12.5 mg p.o. twice daily and holding her dose of amlodipine as blood pressure has been well-controlled during admission without the medication. This may be reassessed at detention facility.. Physical Exam Narrative: General: No acute distress, AO x3 HEENT: PERRLA, pupils bilaterally equal and reactive, pallors not present Chest: Normal vesicular breath sounds, no added sounds, equal good air entry bilaterally CVS: S1-S2 regular, no murmurs, no tachycardia, no gallops, no rubs Abdomen: Soft, nontender, no organomegaly, bowel sounds present Neuro: No focal deficits, no facial deformity, AO x3, power 5/5 in all limbs Urinary Catheter Management: Vaughn Latex: Cath Placed During This Visit: yes, but has since been removed by the nurse Reason for Continuing Indwelling Catheter: Other Urinary Catheter Date of Insertion: 05/28/22 Urinary Catheter Time of Insertion: 23:18 Date Urinary Catheter Removed: 05/28/22 Time Urinary Catheter Discontinued: 06:29 Discharge Data Studies Completed and Pending Completed Studies During Hospitalization Category Date Time Status CT head wo con* [id number] Routine Cat Scan 05/29/22 11:[address] head wo con* [id number] Stat Cat Scan 05/26/22 08:[address] knee LT wo con* [id number] Urgent Cat Scan 05/26/22 19:41 Completed XR cervical spine 3V* [id number] Stat Exams 05/26/22 08:35 Completed XR chest 1V [id number] Stat Exams 05/26/22 08:26 Completed XR chest 1V portable [id number] Routine Exams 06/01/22 07:21 Completed XR chest 1V portable [id number] Routine Exams 06/03/22 06:54 Completed XR chest 1V portable [id number] Stat Exams 05/30/22 05:32 Completed XR hip LT 2-3V wo/w pel* [id number] Routine Exams 05/27/22 Completed XR hip LT 2-3V wo/w pel* [id number] Stat Exams 05/26/22 08:13 Completed XR knee LT 1-2V [id number] Routine Exams 05/26/22 14:42 Completed MR head wo con* [id number] Stat MRI 05/29/22 12:15 Completed Pending at discharge Category Date Time Status Urinalysis Routine Lab 06/04/22 14:48 Uncollected Radiology Impressions Cervical Spine X-Ray 05/26/22 08:35 IMPRESSION: No acute abnormality. Knee X-Ray 05/26/22 14:42 IMPRESSION: There is a transverse fracture off the inferior left patella. Knee CT 05/26/22 19:41 IMPRESSION: There is a fracture fragment off the inferior patella which may be old. There is a minimally displaced fracture off the posterior medial tibial plateau which may be acute. If there is desire for further evaluation, a MRI could be performed. Hip/Pelvis X-Ray 05/27/22 00:00 IMPRESSION: 1. Internal orthopedic fixation involving an intertrochanteric fracture of the left hip in satisfactory position for healing. Head CT 05/29/22 11:24 IMPRESSION: 1. No acute intracranial hemorrhage or edema. 2. Moderate atrophy of the cerebrum and cerebellum. 3. Remote RIGHT periventricular white matter infarct. Head MRI 05/29/22 12:15 IMPRESSION: 1. A few small acute ischemic strokes are present in the left frontoparietal periventricular white matter up to 2.6 cm in size. 2. No focal hemorrhage noted. 3. Moderate age-related changes. 4. Old small right CVA. ADDENDUM: 05/29/22 [id number] THIS REPORT CONTAINS FINDINGS THAT MAY BE CRITICAL TO PATIENT CARE. The findings were verbally communicated via telephone conference at 5:24 PM [facility] on 05/29/[address] Marquez. The findings were acknowledged and understood. Chest X-Ray 06/03/22 06:54 IMPRESSION: No acute findings. Laboratory Results WBC 10.3 10^3/uL (4.0-10.0) H 06/06/22 03:36 RBC 3.05 10^6/uL (4.1-5.3) L 06/06/22 03:36 Hgb 9.2 g/dL (11.5-15.3) L 06/06/22 03:36 Hct 29.5 % (37.0-47.0) L 06/06/22 03:36 MCV 96.7 fl (81-99) 06/06/22 03:36 MCH 30.2 pg (28.0-34.0) 06/06/22 03:36 MCHC 31.2 g/dL (30.0-36.0) 06/06/22 03:36 RDW 15.5 % (12.1-15.1) H 06/06/22 03:36 Plt Count 242 10^3/cmm (130-400) 06/06/22 03:36 MPV 10.1 fL (7.4-10.4) 06/06/22 03:36 Neut % (Auto) 67.4 % 06/06/22 03:36 Lymph % (Auto) 16.8 % 06/06/22 03:36 [place] % (Auto) 6.9 % 06/06/22 03:36 Eos % (Auto) 7.6 % 06/06/22 03:36 Baso % (Auto) 0.3 % 06/06/22 03:36 Neut # (Auto) 6.95 10^3/uL (1.8-7.7) 06/06/22 03:36 Lymph # (Auto) 1.7 10^3/uL (0.8-4.8) 06/06/22 03:36 [place] # (Auto) 0.7 10^3/uL (0.2-0.9) 06/06/22 03:36 Eos # (Auto) 0.8 10^3/uL (0.0-0.8) 06/06/22 03:36 Baso # (Auto) 0.0 10^3/uL (0.0-0.1) 06/06/22 03:36 Nucleated RBC % (auto) 0 % 06/06/22 03:36 Nucleated RBCs # 0.0 /100WBC 06/06/22 03:36 PT 14.80 SECONDS (12.1-14.9) 05/26/22 10:43 INR 1.13 (0.8-1.2) 05/26/22 10:43 APTT 25.1 SECONDS (23.9-36.7) 05/26/22 10:43 Specimen Type Arterial 05/29/22 17:05 Sample Site Radial, left 05/29/22 17:05 ABG pH 7.42 (7.35-7.45) 05/29/22 17:05 ABG pCO2 41.9 mmHg (35-45) 05/29/22 17:05 ABG pO2 75.1 mmHg (80.0-100.0) L 05/29/22 17:05 ABG HCO3 26.8 mmol/L (22-26) H 05/29/22 17:05 ABG O2 Saturation 95.6 05/29/22 17:05 ABG Base Excess 2.1 mmol/L (-2.0-2.0) H 05/29/22 17:05 Perry Test Pos 05/29/22 17:05 A-a O2 Gradient 9.8 mmHg (5-10) 05/29/22 17:05 Hematocrit 20.7 % (37-47) L 05/29/22 17:05 Hgb O2 Saturation 93.6 % (95-100) L 05/29/22 17:05 Carboxyhemoglobin 1.2 %THgb (0.4-20.1) 05/29/22 17:05 Methemoglobin 0.8 % (0.4-1.5) 05/29/22 17:05 Total Hemoglobin 6.8 g/dL (12-16) L 05/29/22 17:05 Sodium 144.0 mmol/L (131-143) H 05/29/22 17:05 Potassium 4.1 mmol/L (3.5-5.0) 05/29/22 17:05 Glucose 186.0 mg/dL (70-115) H 05/29/22 17:05 Ionized Calcium 1.3 mmol/L (1.1-1.4) 05/29/22 17:05 O2 Delivery Device Nc 05/29/22 17:05 O2 Liters/Min 2.0 % 05/29/22 17:05 FiO2 28.0 % 05/29/22 17:05 Director Online Marketing ID [id number] 05/29/22 17:05 Sodium 143 mmol/L (136-145) 06/06/22 03:36 Potassium 3.6 mmol/L (3.5-5.1) 06/06/22 03:36 Chloride 108 mmol/L (98-107) H 06/06/22 03:36 Carbon Dioxide 27 mmol/L (22-29) 06/06/22 03:36 Anion Gap 11.6 (5-19) 06/06/22 03:36 BUN 9 mg/dL (8-23) 06/06/22 03:36 Creatinine 0.8 mg/dL (0.5-0.9) 06/06/22 03:36 GFR Calculation Not Reportable 06/06/22 03:36 Glucose 101 mg/dL (65-115) 06/06/22 03:36 POC Glucose 189 mg/dL (70-110) H 06/06/22 10:51 Estimat Average Glucose 186 05/26/22 10:43 Hemoglobin A1c 8.1 % (4.0-6.0) H 05/26/22 10:43 Calculated Osmolality 295 mOsm/kg (285-295) 06/06/22 03:36 Calcium 8.6 mg/dL (8.5-10.5) 06/06/22 03:36 Phosphorus 3.2 mg/dL (2.5-4.5) 05/27/22 03:20 Magnesium 1.8 mg/dL (1.7-2.3) 05/28/22 03:55 Total Bilirubin 0.9 mg/dL (0.15-1.2) 06/06/22 03:36 AST 41 U/L (0-32) H 06/06/22 03:36 ALT 83 U/L (0-33) H 06/06/22 03:36 Alkaline Phosphatase 119 U/L (35-105) H 06/06/22 03:36 Troponin T Baseline 10 ng/L (0-10) 05/26/22 10:43 Troponin T 120 Minute 8.76 ng/L (0-10) 05/26/22 12:15 Delta Troponin T -2.24 ABS# (0-10) L 05/26/22 12:15 Troponin T Hi Sens 6Hr 10.08 ng/L (0-10) H 05/26/22 16:16 Troponin T Hi Sens 6Hr Delta 0.08 ng/L (0-12) 05/26/22 16:16 NT-Pro-B Natriuret Pep 98317 pg/mL (0-450) H 05/31/22 01:27 Total Protein 5.6 g/dL (6.6-8.7) L 06/06/22 03:36 Albumin 2.8 g/dL (3.5-5.2) L 06/06/22 03:36 Globulin 2.8 g/dL (1.3-4.6) 06/06/22 03:36 Triglycerides 216 mg/dL (0-150) H 05/26/22 10:43 Cholesterol 120 mg/dL (0-200) 05/26/22 10:43 LDL Cholesterol, Calc 37 mg/dL (50-129) L 05/26/22 10:43 HDL Cholesterol 40 mg/dL (60-100) L 05/26/22 10:43 LDL/HDL Ratio 0.93 RATIO (0.00-3.22) 05/26/22 10:43 Cholesterol/HDL Ratio 3.00 mg/dL (0.0-4.40) 05/26/22 10:43 Procalcitonin 0.22 ng/mL (0-0.5) 06/01/22 01:24 TSH 2.54 uIU/mL (0.27-4.20) 05/26/22 10:43 TSH 2.61 uIU/mL (0.27-4.20) 05/26/22 10:43 Urine Color Yellow (Yellow) 05/26/22 10:40 Urine Appearance Hazy (CLEAR) A 05/26/22 10:40 Urine pH 5 (5-7) 05/26/22 10:40 Ur Specific [place] 1.020 (1.005-1.030) 05/26/22 10:40 Urine Protein Trace (Negative) 05/26/22 10:40 Urine Glucose (UA) Norm (Normal) 05/26/22 10:40 Urine Ketones 1+ (Negative) H 05/26/22 10:40 Urine Blood Trace (Negative) H 05/26/22 10:40 Urine Nitrate Negative (Negative) 05/26/22 10:40 Urine Bilirubin Neg (Negative) 05/26/22 10:40 Urine Urobilinogen 1 mg/dL (Negative) H 05/26/22 10:40 Ur Leukocyte Esterase 2+ (Negative) H 05/26/22 10:40 Urine RBC 0-4 /hpf (0-2) H 05/26/22 10:40 Urine WBC 40-55 /hpf (0-5) H 05/26/22 10:40 Ur Squamous Epith Cells 0-4 /hpf (0-5) H 05/26/22 10:40 Amorphous Sediment Not Reportable 05/26/22 10:40 Urine Bacteria 3+ /hpf (NONE) H 05/26/22 10:40 Nasal Influ A H1 2008 PCR Not detected (NOT DETECT) 05/30/22 11:20 Adenovirus (PCR) Not detected (NOT DETECT) 05/30/22 11:20 C. pneumoniae DNA (PCR) Not detected (NOT DETECT) 05/30/22 11:20 Coronavirus 229E (PCR) Not detected (NOT DETECT) 05/30/22 11:20 Human Metapneumovir PCR Not detected (NOT DETECT) 05/30/22 11:20 Influenza A (H1) PCR Not detected (NOT DETECT) 05/30/22 11:20 Influenza A (H3) PCR Not detected (NOT DETECT) 05/30/22 11:20 Influenza Type A Ag negative (Negative) 06/04/22 14:50 Influenza Type A (PCR) Not detected (NOT DETECT) 05/30/22 11:20 Influenza Type B Ag negative (Negative) 06/04/22 14:50 Influenza Type B (PCR) Not detected (NOT DETECT) 05/30/22 11:20 M. pneumoniae (PCR) Not detected (NOT DETECT) 05/30/22 11:20 Parainfluenza 1 (PCR) Not detected (NOT DETECT) 05/30/22 11:20 Parainfluenza 2 (PCR) Not detected (NOT DETECT) 05/30/22 11:20 Parainfluenza 3 (PCR) Not detected (NOT DETECT) 05/30/22 11:20 Parainfluenza 4 (PCR) Not detected (NOT DETECT) 05/30/22 11:20 RSV Type A (PCR) Not detected (NOT DETECT) 05/30/22 11:20 RSV Type B (PCR) Not detected (NOT DETECT) 05/30/22 11:20 Entero/Rhino (PCR) Not detected (NOT DETECT) 05/30/22 11:20 SARS-CoV-2 (PCR) Not detected (NOT DETECT) 05/30/22 11:20 SARS-CoV-2 Ag (Rapid) negative (Negative) 06/04/22 10:32 Blood Type A Negative 05/30/22 05:04 Rho(D) Type Negative 05/30/22 05:04 Antibody Screen Negative 05/30/22 05:04 Crossmatch See Detail 05/30/22 05:04 Vitals Last Vital Signs Temp 97.7 F 06/06/22 11:48 Pulse 75 06/06/22 11:48 Resp 17 06/06/22 11:48 BP 117/66 06/06/22 11:48 Pulse Ox 98 06/06/22 11:48 O2 Del Method 06/06/22 03:27 O2 Flow Rate 1 06/03/22 07:31 Discharge Plan Discharge Patient Disposition: Xfer SNF Condition: Stable Prescriptions: New Brilinta 90 mg Tablet 90 mg PO BID 30 Days Qty: 60 0RF Continued gabapentin 100 mg capsule 100 mg PO BID PreserVision AREDS 7,160 unit- 113 mg-100 unit tablet 1 tab PO BID Rx Instructions: administer with AM and PM meals nitroglycerin [Nitrostat] 0.4 mg tablet, sublingual 0.4 mg SUBLINGUAL Q5M PRN (Reason: chest pain) Qty: 25 2RF budesonide [Rhinocort Allergy] 32 mcg/actuation spray,non-aerosol 1 spray intranasal DAILY Qty: 8.43 0RF Rx Instructions: administer into each nostril aspirin [Adult Low Dose Aspirin] 81 mg tablet,delayed release (DR/EC) 81 mg PO DAILY (DME) Wheeled Walker with Seat See Rx Instructions .Route .MEDSUPPLY Qty: 1 0RF Rx Instructions: As directed potassium chloride 8 mEq capsule, extended release 8 meq PO DAILY galantamine 8 mg capsule,ext rel. pellets 24 hr 8 mg PO BID 90 Days Qty: 180 3RF Rx Instructions: administer with breakfast 340 B Januvia 100 mg tablet 100 mg PO DAILY 90 Days Qty: 90 3RF Rx Instructions: 340 B (DME) pen needle, diabetic [TechLITE Pen Needle] 32 gauge x 5/32 needle See Rx Instructions .ROUTE .COMPLEX Qty: 100 0RF Dose Instruction: USE WITH LEVEMIR EVERY NIGHT AT BEDTIME. Rx Instructions: USE WITH LEVEMIR EVERY NIGHT AT BEDTIME. Levemir FlexTouch U-100 Insuln 100 unit/mL (3 mL) insulin pen See Rx Instructions .ROUTE .COMPLEX Qty: 30 0RF Dose Instruction: INJECT 100 UNITS SUBCUTANEOUS EVERY NIGHT AT BEDTIME. Rx Instructions: INJECT 100 UNITS SUBCUTANEOUS EVERY NIGHT AT BEDTIME. 340 B allopurinol 100 mg tablet 200 mg PO DAILY levothyroxine 75 mcg tablet 75 mcg PO DAILY omeprazole 40 mg capsule,delayed release(DR/EC) 40 mg PO DAILY duloxetine 60 mg capsule,delayed release(DR/EC) 60 mg PO DAILY atorvastatin 80 mg Tablet 80 mg PO DAILY Changed metoprolol tartrate 25 mg tablet 12.5 mg PO BID 30 Days Qty: 30 0RF Dose Instruction: TAKE 1 TABLET BY MOUTH TWICE DAILY. Rx Instructions: TAKE 1 TABLET BY MOUTH TWICE DAILY. Held amlodipine 5 mg tablet 5 mg PO DAILY Hold Instructions: Resume on 06/05/22. lisinopril 10 mg tablet 20 mg PO DAILY Qty: 0 0RF Hold Instructions: Resume on 06/05/22. Discontinued prasugrel 10 mg tablet 10 mg PO DAILY Discharge Orders: Discharge Order (Routine); Ordered 06/04/22 Ordered By: Mervat Gee Referrals: [facility] [Outside] Rebecca Bishop MD [Physician] - 06/26/22 12:00 pm () Natalie Manzano MD [Primary Care Provider] - Maggie Chavira MD [Physician] - 06/14/22 11:00 am Discharge Diet: As Directed Discharge Activity: As per PT/OT instructions Patient Instructions: Ticagrelor (By mouth) Discharge Attestations Time Spent in Discharge Care*: greater than 30 min Quality Metrics Clinical Quality Measures [ Cerebrovascular Accident { Contraindication to Antithrombotic: None; antithrombotic prescribed; Contraindication to Anticoagulation: Medical contraindication (anemia ); Contraindication to Statin: None; Statin prescribed;}] 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 Care Code Acute [facility] note Diagnoses Closed intertrochanteric fracture of left femur S72.142A Encounter type: initial encounter Fracture alignment: displaced Comminuted fracture of left patella S82.042A Encounter type: initial encounter Fracture type: closed Fracture alignment: displaced Altered mental status R41.82 History of CVA (cerebrovascular accident) Z86.73
[2022-06-06 13:53] VITALS: BP 117/66; PULSE 75; RESP 17; TEMP 36.5; O2SAT 98
--- NOTE | 2022-06-06 14:27 | P.PN_ITS ---
Subjective Subjective: Patient is ready for discharge today. She is seen in the room with her and her daughter. She has no complaints at the present time. Medications: Reviewed: Yes Medication Review Details: Generic Name Dose Route Start Last Admin Trade Name Freq PRN Reason Stop Dose Admin Acetaminophen 650 mg 06/01/22 04:32 06/01/22 04:59 Acetaminophen 65 0 Mg Supp OK 650 mg Q6H PRN Administration MILD PAIN OR INCR EASE TEMP Allopurinol 200 mg 05/27/22 09:00 06/03/22 08:54 Allopurinol 100 Mg Tablet PO Not Given DAILY ADAMARIS Amlodipine Besylat e 5 mg 05/27/22 09:00 05/29/22 09:07 Amlodipine 5 Mg Tablet PO Not Given DAILY ADAMARIS Atorvastatin Calci um 80 mg 05/30/22 09:00 06/03/22 08:54 Atorvastatin 40 Mg Tablet PO Not Given DAILY ADAMARIS Celecoxib 200 mg 05/28/22 09:00 06/03/22 08:54 Celecoxib 200 Mg Capsule PO Not Given DAILY ADAMARIS Duloxetine HCl 60 mg 05/27/22 09:00 06/03/22 08:54 Duloxetine 60 Mg Capsule PO Not Given DAILY ADAMARIS Enoxaparin Sodium 40 mg 05/31/22 10:30 06/03/22 10:52 Enoxaparin 40 Mg /0.4 Ml Syringe SUBCUT 40 mg Q24H ADAMARIS Administration Gabapentin 100 mg 05/26/22 18:00 06/03/22 08:54 Gabapentin 100 M g Capsule PO Not Given BID ADAMARIS Piperacillin Sod/T azobactam 50 mls @ 12.5 mls /hr 05/30/22 08:30 06/03/22 13:06 Sod 3.375 gm/ So dium Chloride IV Infused Q8H ADAMARIS Infusion Protocol Dextrose 1,000 mls @ 30 ml s/hr 05/31/22 08:00 06/03/22 09:00 D5w IV 30 mls/hr .Q24H ADAMARIS Infusion Insulin Glargine 30 unit 05/31/22 21:00 06/02/22 20:52 Insulin Glargine 100 Units/1 Ml SUBCUT 30 unit BEDTIME ADAMARIS Administration Insulin Human Lisp ro 0 unit 06/01/22 08:00 06/03/22 13:03 Insulin Lispro 1 00 Unit/1 Ml SUBCUT 8 unit WM&BEDTIME ADAMARIS Administration Protocol Levothyroxine Sodi um 75 mcg 05/27/22 09:00 06/03/22 08:54 Levothyroxine 75 Mcg Tablet PO Not Given DAILY [facility] Lisinopril 20 mg 05/27/22 09:00 05/29/22 09:07 Lisinopril 10 Mg Tablet PO Not Given DAILY ADAMARIS Metoprolol Tartrat e 25 mg 05/26/22 18:00 05/29/22 16:59 Metoprolol Tartr ate 25 Mg Tablet PO Not Given BID ADAMARIS Metoprolol Tartrat e 5 mg 05/30/22 17:11 06/02/22 05:21 Metoprolol Tartr ate 1 Mg/1 Ml Sdv 5 Ml IVP 5 mg Q4H PRN Administration SVT Non-Formulary Medi cation 8 mg 05/26/22 18:00 06/03/22 08:54 Galantamine PO Not Given BID [facility] Pantoprazole Sodiu m 40 mg 05/26/22 13:15 06/03/22 13:06 Pantoprazole 40 Mg Sdv IVP 40 mg Q24H [facility] Administration Senna/Docusate Sod ium 2 tab 05/27/22 18:00 06/03/22 08:55 Sennosides-Docus ate Tablet PO Not Given BID [facility] Ticagrelor 90 mg 05/29/22 18:00 06/03/22 08:55 Ticagrelor 90 Mg Tablet PO Not Given BID [facility] Vitals/I&O/Wt Last Vital Signs Temp 97.7 F 06/06/22 13:53 Pulse 75 06/06/22 13:53 Resp 17 06/06/22 13:53 BP 117/66 06/06/22 13:53 Pulse Ox 98 06/06/22 13:53 O2 Del Method 06/06/22 03:27 O2 Flow Rate 1 06/03/22 07:31 06/05/22 06/06/22 06/06/22 22:59 06:59 14:59 Intake Total 410 2024 120 / 2145 750 / 750 Balance 410 2024 120 / 2145 750 / 750 Physical Exam Const: COMMON NORMALS: no acute distress, patient oriented x3 and alert GENERAL APPEARANCE: cooperative and comfortable NUTRITIONAL APPEARANCE: overweight ORIENTATION/CONSCIOUSNESS: Yes awake HENMT: COMMON NORMALS: normocephalic and atraumatic HEAD & SCALP: normocephalic and atraumatic Eye: GENERAL EYE: appearance normal, both eyes and all related structures Chest: COMMONS NORMALS: normal inspection of the chest Resp: COMMON NORMALS: normal respiratory effort EFFORT & INSPECTION: Yes able to speak in complete sentences and Yes symmetric chest movement Extremity: NARRATIVE EXTREMITY EXAM: Patient has no complaints with regards to her left intertrochanteric hip fracture. She has been working with therapy. CVA issues have resolved. Neuro: COMMON NORMALS: patient oriented x3 SENSORIUM/ORIENTATION: Yes alert Psych: COMMON NORMALS: mental status grossly normal APPEARANCE: Yes grossly normal ATTITUDE: Yes calm and Yes engaged ATTENTION/CONCENTRATION: Yes attention grossly intact Skin: COMMON NORMALS: no rashes or lesions noted GENERAL SKIN EXAM: no rashes or lesions noted Urinary Catheter Management: Vaughn Latex: Cath Placed During This Visit: yes, but has since been removed by the nurse Reason for Continuing Indwelling Catheter: Other Urinary Catheter Date of Insertion: 05/28/22 Urinary Catheter Time of Insertion: 23:18 Date Urinary Catheter Removed: 05/28/22 Time Urinary Catheter Discontinued: 06:29 Data 06/06/22 03:36 06/06/22 03:36 A&P Assessment and plan (1) Closed intertrochanteric fracture of left femur: This 82-year-old woman with known medical history of CVA this spring, diabetes, essential hypertension, dyslipidemia, and hypothyroidism presented through the emergency department today after a fall at home. She got up to let out the dog, and when she let the dog back in, she fell onto her left knee and left hip. Initial imaging studies in the emergency department demonstrated a comminuted displaced angulated intertrochanteric left hip fracture, and the patient was admitted for definitive treatment. Additionally, the patient has a remote patella fracture which causes giving way of her knee. I discussed with the family that we will address this fracture over a longer term when she has proceeded with rehab after her hip fracture. During this hospitalization, the patient has been diagnosed with a CVA. Patient had dramatic improvement while hospitalized. She was able to work with physical therapy. She is ready for transfer to half-way today to continue her postoperative and post CVA rehabilitation. Qualifiers: Encounter type: initial encounter Fracture alignment: displaced Qualified Code(s): S72.142A - Displaced intertrochanteric fracture of left femur, initial encounter for closed fracture (2) Comminuted fracture of left patella: This fracture appears more remote than acute. Qualifiers: Encounter type: initial encounter Fracture type: closed Fracture alig nment: displaced Qualified Code(s): S82.042A - Displaced comminuted fracture of left patella, initial encounter for closed fracture (3) Altered mental status: New findings on MRI involving the left side with previous imaging demonstrating a right-sided CVA (4) History of CVA (cerebrovascular accident): Attestations Medical Necessity Statement*: Per primary hospitalist team 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 Care Code Acute Machine [facility] for [facility] Fwd Diagnoses Closed intertrochanteric fracture of left femur S72.142A Encounter type: initial encounter Fracture alignment: displaced Comminuted fracture of left patella S82.042A Encounter type: initial encounter Fracture type: closed Fracture alignment: displaced Altered mental status R41.82 History of CVA (cerebrovascular accident) Z86.73
== END 2022-06-06 13:55 | disposition skilled nursing facility (03) | DRG 480 ==
LOC: ER 08:40 → ER IP 09:40 → CSU 11:50 → MEDSURG 21:02
PROVIDERS: Internal Medicine; Specialist; Admitting Provider Family Medicine; Emergency Provider Family Medicine; PCP Family Medicine; Visit Provider Student in an Organized Health Care Education/Training Program
PROC: 0QH736Z Insertion of Intramedullary Internal Fixation Device into Left Upper Femur, Percutaneous Approach (ICD-10-PCS; CPT 27245; principal; 2022-05-27 10:40)
DX: S72.142A Displaced intertrochanteric fracture of left femur, initial encounter for closed fracture (principal); I63.9 Cerebral infarction, unspecified; J18.9 Pneumonia, unspecified organism; S82.042A Displaced comminuted fracture of left patella, initial encounter for closed fracture; D62 Acute posthemorrhagic anemia; G81.91 Hemiplegia, unspecified affecting right dominant side; I47.1 Supraventricular tachycardia; N39.0 Urinary tract infection, site not specified; W18.30XA Fall on same level, unspecified, initial encounter; Z86.73 Personal history of transient ischemic attack (TIA), and cerebral infarction without residual deficits; I25.10 Atherosclerotic heart disease of native coronary artery without angina pectoris; Z95.5 Presence of coronary angioplasty implant and graft; I10 Essential (primary) hypertension; E11.9 Type 2 diabetes mellitus without complications; E78.5 Hyperlipidemia, unspecified; E03.9 Hypothyroidism, unspecified; Z75.1 Person awaiting admission to adequate facility elsewhere; Z79.82 Long term (current) use of aspirin; Z79.4 Long term (current) use of insulin; Z79.84 Long term (current) use of oral hypoglycemic drugs; Z88.8 Allergy status to other drugs, medicaments and biological substances; E83.42 Hypomagnesemia; G30.9 Alzheimer's disease, unspecified; F02.80 Dementia in other diseases classified elsewhere, unspecified severity, without behavioral disturbance, psychotic disturbance, mood disturbance, and anxiety
CPT/HCPCS: 36415; 36416; 36430; 36600; 51702; 51798; 70450; 70551; 71045; 72040; 73502; 73560; 73700; 76000; 80048; 80051; 80053; 80061; 81001; 82330; 82805; 82962; 83036; 83735; 83880; 84100; 84145; 84443; 84484; 85014; 85018; 85025; 85610; 85730; 86850; 86900; 86920; 87040; 87086; 87426; 87486; 87581; 87633; 87641; 87804; 92507; 92523; 92526; 92610; 93005; 94664; 96365; 96366; 96367; 96372; 97110; 97112; 97161; 97167; 97530; 97535; 99285; C1713; C9113; J0131; J0690; J0696; J1160; J1650; J1815; J1885; J1940; J2270; J2370; J2405; J2543; J2704; J3010; J3370; J3475; J3480; J3490; J7030; J7040; J7070; P9016

== ENCOUNTER → 2022-07-02 13:50 | Outpatient (BNVA) | payer MEDICARE, OTHER, SELFPAY | PROVIDERS: PCP Family Medicine; Visit Provider Specialist | DX: G30.9 Alzheimer's disease, unspecified (principal); F02.80 Dementia in other diseases classified elsewhere, unspecified severity, without behavioral disturbance, psychotic disturbance, mood disturbance, and anxiety; Z95.820 Peripheral vascular angioplasty status with implants and grafts; S72.142D Displaced intertrochanteric fracture of left femur, subsequent encounter for closed fracture with routine healing; Z86.73 Personal history of transient ischemic attack (TIA), and cerebral infarction without residual deficits; W19.XXXD Unspecified fall, subsequent encounter; Z91.81 History of falling; Z79.899 Other long term (current) drug therapy | CPT/HCPCS: 99215 ==

== ENCOUNTER → 2022-07-12 14:01 | Outpatient (BNVA) | payer MEDICARE, OTHER, SELFPAY | PROVIDERS: PCP Family Medicine; Visit Provider Nurse Practitioner Family | DX: S82.042A Displaced comminuted fracture of left patella, initial encounter for closed fracture (principal); S72.142A Displaced intertrochanteric fracture of left femur, initial encounter for closed fracture; S82.132A Displaced fracture of medial condyle of left tibia, initial encounter for closed fracture; X58.XXXA Exposure to other specified factors, initial encounter | CPT/HCPCS: 99024; 99214 ==

== ENCOUNTER 2022-08-16 13:27 | Outpatient (CLI) | payer MEDICARE, OTHER, SELFPAY ==
--- NOTE | 2022-08-16 13:45 | MR_ITS ---
WS: [id number] MRI LEFT KNEE HISTORY: Extreme pain. Patient fell. COMPARISON: Prior MRI 07/23/2008 MRI evaluation is limited due to patient's extreme pain and unable to continue and complete study. Mo tion artifact. Anterior cruciate ligament: Intact. Mild thinning of the ACL. The anterior fibers are intact. The pos terior fibers are less distinct. Posterior cruciate ligament: Intact. Medial collateral ligament: Displaced from the joint line by an extruded meniscus and osteophytes. Posterior lateral corner structures: Intact. Medial menisci: Extruded anterior horn. Abnormal shape and configuration of the posterior horn marked intrasubstance degeneration. Lateral meniscus: Intact. Normal signal, size and shape. Extensor mechanism: Distal quadriceps tendon and patellar tendons are intact. Fluid and soft tissue: Moderate-sized suprapatellar joint effusion. Small Vigil's cyst. Osseous and articular structures: Patellofemoral compartment: Mild diffuse narrowing of the patellofemoral joint space with mild chondr omalacia. No marrow edema. Medial compartment: Severe narrowing of the medial compartment with extruded meniscus. Bone upon bone with loss of the normal cartilage. Small areas of subchondral edema. Lateral compartment: Mild narrowing with mild chondromalacia. Partially calcified soft tissue mass within the infrapatellar fat pad measures 14 x 15 mm. This is pa rtially calcified on prior radiographs. 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 Does not appear to be a an avulsion fracture. MR/MR knee LT wo con* [id number] IMPRESSION: 1. Study terminated early due to pain. Motion artifact also. 2. Severe narrowing medial compartment with extruded meniscus and bone upon nory ne and loss of cartilage. 3. Mild narrowing lateral compartment with chondromalacia. 4. Mild chondromalacia patellofemoral compartment. 5. Partially calcified mass in Hoffa's fat pad. Favor this is probably a soft tissue chondroma. 6. Extruded medial meniscus from the joint line. Posterior horn with abnormal signal and marked intrasubstance degeneration.
== END 2022-08-16 13:28 | disposition home or self-care (01) ==
LOC: RAD 13:31
PROVIDERS: PCP Family Medicine; Visit Provider Nurse Practitioner Family
DX: M22.42 Chondromalacia patellae, left knee (principal); W19.XXXA Unspecified fall, initial encounter
CPT/HCPCS: 73721

== ENCOUNTER → 2022-09-13 14:33 | Outpatient (BNVA) | payer MEDICARE, OTHER, SELFPAY | PROVIDERS: PCP Family Medicine; Visit Provider Nurse Practitioner Family | DX: I25.10 Atherosclerotic heart disease of native coronary artery without angina pectoris (principal); I10 Essential (primary) hypertension; E11.9 Type 2 diabetes mellitus without complications; Z79.4 Long term (current) use of insulin; Z79.82 Long term (current) use of aspirin | CPT/HCPCS: 99214 ==